=== PATIENT | female | born 1960 | race Caucasian/White ===

== ENCOUNTER 2019-01-06 10:00 | Outpatient (RCR) | payer MEDICAID, SELFPAY ==
[2018-12-09 09:11] VITALS: BP 125/85; PULSE 85; RESP 18; TEMP 36.7; BMI 20.4
--- NOTE | 2018-12-09 12:07 | HP.PCM_ITS ---
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 layer exposed Status: Chronic Current Visit: Yes Code(s): L97.412 - Non-pressure chronic ulcer of right heel and midfoot with fat layer exposed (2) PVD (peripheral vascular disease) Status: Acute Current Visit: Yes Code(s): I73.9 - Peripheral vascular disease, unspecified (3) Lower extremity edema Status: Acute Current Visit: Yes Code(s): R60.0 - Localized edema (4) Delayed wound healing Status: Acute Current Visit: Yes Code(s): T14.8XXD - Other injury of unspecified body region, subsequent encounter (5) Type 2 diabetes mellitus with diabetic polyneuropathy Status: Acute Current Visit: Yes Code(s): E11.42 - Type 2 diabetes mellitus with diabetic polyneuropathy History of Present Illness Date of Service: 12/09/18 Chief Complaint: Right heel ulcer History of Wound: This patient with a one-month history of right heel ulcer, uncontrolled diabetes, as well as multiple other comorbidities was consulted to the wound healing center for her ongoing right heel ulcer. Patient says that she noticed the area about a month ago and has very slowly been worsening. She denies noticing any drainage, surrounding redness, or increased warmth to the area. She says she has been keeping the area dressed the best she can. She does admit to walking on her heel and not completely keeping the area offloaded. She currently denies any feelings of nausea, vomiting, fever, chills. Past Medical History Past Medical History: Chronic Problems Chronic ulcer of right heel with fat layer exposed (Chronic) Smoking Status: Light Smoker (<10/day) Review of Systems Constitutional: Denies: Chills, Fever, Weight Change Cardiovascular: Denies: Chest Pain, Palpitations Respiratory: Denies: Cough, Shortness of Breath Gastrointestinal: Denies: Diarrhea, Nausea, Vomiting Genitourinary: Denies: Dysuria, Hematuria Skin: Reports: - - Right heel ulcer - Physical Exam Vital Signs Temp Pulse Resp BP 98.0 F 85 18 125/85 H 12/09/18 09:11 12/09/18 09:11 12/09/18 09:11 12/09/18 09:11 General: Alert, Oriented x3, Cooperative, No apparent distress Extremities: No cyanosis, No Calf Tenderness - Negative Gaurang and Jim signs bilateral, Diminished Peripheral Pulses, Edema - Bilateral lower extremity edema, - - Capillary refill time slightly over 5 seconds to distal digits of the right and left foot Skin: Ulcer/ Wound - Ulcer to right heel with depth not completely able to be established due to overlying stable eschar to the area. There is no bogginess or fluctuance surrounding the area. There is no surrounding or extending erythema, no increased warmth, no probing to bone, no tracking, no undermining. Wound Measurements and Assessment WC - Nurse 1 - General Ulcer Measurement Start: 12/09/18 09:01 Freq: Status: Active Protocol: Activity Type Activity Date Activity User E-Sign Co-Sign Detail Recorded Client Recorded Date Recorded By Document 12/09/18 09:11 DV [id number] 12/09/18 09:47 DV 12/09/18 09:11 Wound Center Nurse 1 [Ulcer Assessment] #1 RIGHT HEEL -Combined with other wound No -Current Size (cm) - Length 1.9 -Current Size (cm) - Width 1.2 -Current Size (cm) - Depth 0.2 -Total Square Cm 2.28 -Date of Last Picture (Recall this 12/09/18 field) -Photo Taken Yes -Epithelialization None Present -Tunneling No -Undermining/Tunneling No -Circular Undermining No -Classification - Thickness Full Thickness without Exposed Support Structure -Exudate Amt Medium -Exudate Type Serosanguineous -Wound Margin Indistinct, Non -Visible -Granulation Amt None Present (0 %) -Granulation Quality N/A -Slough/Fibrin Yes -Necrosis Amt Large (67-100%) -Necrotic Tissue Type Adherent Slough -Structure Exposed None/Limited to Skin Breakdown -Texture (Carmen-wound Skin Appearance) No Abnormality, Assessed -Moisture (Carmen-wound Skin Appearance Assessed, ) Weeping -Color (Carmen-wound Skin Appearance) Assessed, Erythema -Temperature (Carmen-wound Skin No Abnormality Appearance) (Pt Warm) -Tenderness on Palpation (Carmen-wound Yes Skin Appearance) -Ulcer Cleansing Rinsed/ Irrigated with Saline -Foul Odor after Cleansing No -Anesthetic Used 5% Lidocaine Gel [Edema Assessment] -Lower Limb Edema Present Yes -Right Calf (cm) 22.3 -Right Ankle (cm) 34.5 -Left Calf (cm) 37.0 -Left Ankle (cm) 23.5 WC - Nurse 2 - General Ulcer CM Notes Start: 12/09/18 09:01 Freq: Status: Active Protocol: Activity Type Activity Date Activity User E-Sign Co-Sign Detail Recorded Client Recorded Date Recorded By Document 12/09/18 10:11 AN [id number] 12/09/18 10:16 AN 12/09/18 10:11 Wound Center Nurse 2 [Procedure/Treatment] #1 RIGHT HEEL -Time 10:14 -Correct Patient Yes -Correct Side, Site, Position Yes -Correct Procedure Yes -Procedure Performed No -Wound/Ulcer Outcome Not Healed -Ulcer Cleansing Rinsed/ Irrigated with Saline -Foul Odor after Cleansing No -Bioengineered Tissue No -Offloading Yes -Type of Offloading Camwalker -Treatment Response Procedure Tolerated Well [See Physician Procedure note for Specifics] Pain Scale: 0-10 Numeric [Pain] -Is Patient Pain Free? Yes Musculoskeletal: No Tenderness to Palpation of Joints or Extremities Neurological: - - Epicritic sensation grossly absent to bilateral lower extremities consistent with patient's diabetic status Psych/Mental Status: Normal Affect, Appropriate Debridement Note Post-Debridement Measurements/Treatment - Nurse 2 - General Ulcer CM Notes Start: 12/09/18 09:01 Freq: Status: Active Protocol: Activity Type Activity Date Activity User E-Sign Co-Sign Detail Recorded Client Recorded Date Recorded By Document 12/09/18 10:11 AN [id number] 12/09/18 10:16 AN 12/09/18 10:11 Wound Center Nurse 2 #1 RIGHT HEEL -Time 10:14 -Correct Patient Yes -Correct Side, Site, Position Yes -Correct Procedure Yes -Procedure Performed No -Wound/Ulcer Outcome Not Healed -Ulcer Cleansing Rinsed/ Irrigated with Saline -Foul Odor after Cleansing No -Bioengineered Tissue No -Offloading Yes -Type of Offloading Camwalker -Treatment Response Procedure Tolerated Well Pain Scale: 0-10 Numeric Is Patient Pain Free? Yes No debridement was completed today Assessment/Plan Active Problems Chronic ulcer of right heel with fat layer exposed (Chronic) PVD (peripheral vascular disease) (Acute) Lower extremity edema (Acute) Delayed wound healing (Acute) Type 2 diabetes mellitus with diabetic polyneuropathy (Acute) Assessment: As noted above Plan: Initial patient examination evaluation was performed today. No debridement was performed today as we are unsure about patient's vascular status at this time. The ulcer site has been present to the patient's right heel for approximately 1 months at this time. The stable eschar was painted with Bet adine with an overlying Betadine gauze followed by dry sterile dressing and Tubigrip for compression. The patient was instructed to change her dressing in this manner on a daily basis. The patient is to keep all weight and pressure completely off of the heel at all times while either seated or laying down. While laying down she is to keep pillows under her calves to make sure that nothing but air is touching the heel. She is to keep any kind of pressure to the forefoot if she absolutely needs to be up to move from one place to another. She relates that she understands this and admits to not being compliant in this over the past month. No antibiotics were prescribed today due to there being no clinical signs of local infection being present. Patient relates she is already established with a vascular surgeon Dr. Almaguer. She is unsure of everything that is been done in her past, but does relate procedures have been performed to open up blood flow. I recommend at this time that the patient is reevaluated by her vascular surgeon as soon as possible to further evaluate if any intervention may be needed at this time. She is in agreement with this plan. Smoking cessation was discussed in detail. I also recommend a diet high in protein to help optimize patient's ulcer healing potential. The patient was educated on all signs and symptoms of local and systemic infection she was instructed to go to the emergency room immediately should she notice any of these. All other questions were answered to the patient's satisfaction. Patient will follow back up in clinic in 1 week to check on progress but was instructed to follow-up sooner if needed for any reason before then.
[2018-12-16 09:34] VITALS: RESP 16; TEMP 36.5; BMI 20.4
--- NOTE | 2018-12-16 10:07 | PCM.WC.PN ---
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 layer exposed Status: Chronic Current Visit: Yes Code(s): L97.412 - Non-pressure chronic ulcer of right heel and midfoot with fat layer exposed (2) PVD (peripheral vascular disease) Status: Acute Current Visit: Yes Code(s): I73.9 - Peripheral vascular disease, unspecified (3) Lower extremity edema Status: Acute Current Visit: Yes Code(s): R60.0 - Localized edema (4) Delayed wound healing Status: Acute Current Visit: Yes Code(s): T14.8XXD - Other injury of unspecified body region, subsequent encounter (5) Type 2 diabetes mellitus with diabetic polyneuropathy Status: Acute Current Visit: Yes Code(s): E11.42 - Type 2 diabetes mellitus with diabetic polyneuropathy Type of Wound Date of Service: 12/16/18 Chief Complaint: Right heel ulcer History of Wound: This patient with a one-month history of right heel ulcer, uncontrolled diabetes, as well as multiple other comorbidities was consulted to the wound healing center for her ongoing right heel ulcer. Patient says that she noticed the area about a month ago and has very slowly been worsening. She denies noticing any drainage, surrounding redness, or increased warmth to the area. She says she has been keeping the area dressed the best she can. She does admit to walking on her heel and not completely keeping the area offloaded. She currently denies any feelings of nausea, vomiting, fever, chills. Progress of Wound: Ulcer stable this week. Patient denies any feelings of nausea, vomiting, fever, chills. - Physical Exam Vital Signs Temp Pulse Resp BP 97.7 F L 85 16 125/85 H 12/16/18 09:34 12/09/18 09:11 12/16/18 09:34 12/09/18 09:11 General: Alert, Oriented x3, Cooperative, No apparent distress Extremities: No cyanosis, No Calf Tenderness - Negative Gaurang and Jim signs bilateral, Diminished Peripheral Pulses, Edema - Bilateral lower extremity edema, - - Capillary refill time slightly over 5 seconds to distal digits of the right and left foot Skin: Ulcer/ Wound - Ulcer to right heel with depth not completely able to be established due to overlying stable eschar to the area. There continues to be no bogginess or fluctuance surrounding the area. There is no surrounding or extending erythema, no increased warmth, no probing to bone, no tracking, no undermining. Wound Measurements and Assessment WC - Nurse 1 - General Ulcer Measurement Start: 12/09/18 09:01 Freq: Status: Active Protocol: Activity Type Activity Date Activity User E-Sign Co-Sign Detail Recorded Client Recorded Date Recorded By Document 12/16/18 09:34 [facility] [id number] 12/16/18 09:39 [facility] 12/16/18 09:34 Wound Center Nurse 1 [Ulcer Assessment] #1 RIGHT HEEL -Combined with other wound No -Current Size (cm) - Length 2.2 -Current Size (cm) - Width 1.5 -Current Size (cm) - Depth 0.2 -Total Square Cm 3.30 -Photo Taken No -Epithelialization None Present -Tunneling No -Undermining/Tunneling No -Circular Undermining No -Exudate Amt None Present -Wound Margin Distinct, Outline Attached -Granulation Amt None Present (0 %) -Slough/Fibrin Yes -Necrosis Amt Large (67-100%) -Necrotic Tissue Type Eschar -Texture (Carmen-wound Skin Appearance) Assessed, Scarring -Moisture (Carmen-wound Skin Appearance Assessed ) -Color (Carmen-wound Skin Appearance) Assessed, Erythema -Temperature (Carmen-wound Skin No Abnormality Appearance) (Pt Warm) -Tenderness on Palpation (Carmen-wound Yes Skin Appearance) -Ulcer Cleansing Rinsed/ Irrigated with Saline -Foul Odor after Cleansing No -Anesthetic Used 5% Lidocaine Gel KETTY - Nurse 2 - General Ulcer CM Notes Start: 12/09/18 09:01 Freq: Status: Active Protocol: Activity Type Activity Date Activity User E-Sign Co-Sign Detail Recorded Client Recorded Date Recorded By Document 12/16/18 09:57 AN [id number] 12/16/18 09:58 AN 12/16/18 09:57 Wound Center Nurse 2 [Procedure/Treatment] -Time 09:58 -Procedure Performed No [See Physician Procedure note for Specifics] Pain Scale: 0-10 Numeric [Pain] -Is Patient Pain Free? Yes Musculoskeletal: No Tenderness to Palpation of Joints or Extremities Neurological: - - Epicritic sensation grossly absent to bilateral lower extremities consistent with patient's diabetic status Psych/Mental Status: Normal Affect, Appropriate Debridement Note Post-Debridement Measurements/Treatment WC - Nurse 2 - General Ulcer CM Notes Start: 12/09/18 09:01 Freq: Status: Active Protocol: Activity Type Activity Date Activity User E-Sign Co-Sign Detail Recorded Client Recorded Date Recorded By Document 12/09/18 10:11 AN [id number] 12/09/18 10:16 AN Document 12/16/18 09:57 AN [id number] 12/16/18 09:58 AN 12/09/18 12/16/18 10:11 09:57 Wound Center Nurse 2 #1 RIGHT HEEL -Time 10:14 09:58 -Correct Patient Yes -Correct Side, Site, Position Yes -Correct Procedure Yes -Procedure Performed No No -Wound/Ulcer Outcome Not Healed -Ulcer Cleansing Rinsed/ Irrigated with Saline -Foul Odor after Cleansing No -Bioengineered Tissue No -Offloading Yes -Type of Offloading Camwalker -Treatment Response Procedure Tolerated Well Pain Scale: 0-10 Numeric Is Patient Pain Free? Yes Yes No debridement was completed today Assessment/Plan Active Problems Chronic ulcer of right heel with fat layer exposed (Chronic) PVD (peripheral vascular disease) (Acute) Lower extremity edema (Acute) Delayed wound healing (Acute) Type 2 diabetes mellitus with diabetic polyneuropathy (Acute) Assessment: As noted above Plan: Patient was carefully examined and evaluated again for her right heel ulcer. No debridement was performed today as she has not yet been evaluated by her vascular doctor. The stable eschar was painted with Betadine with an overlying Betadine gauze followed by dry sterile dressing and Tubigrip for compression. The patient was instructed to change her dressing in this manner on a daily basis. The patient is to keep all weight and pressure completely off of the heel at all times while either seated or laying down. While laying down she is to keep pillows under her calves to make sure that nothing but air is touching the heel. She is to keep any kind of pressure to the forefoot if she absolutely needs to be up to move from one place to another. No antibiotics were prescribed today due to there being no clinical signs of local infection being present. Patient relates she is already established with a vascular surgeon Dr. Almaguer. She is unsure of everything that is been done in her past, but does relate procedures have been performed to open up blood flow. I continue to recommend that the patient is reevaluated by her vascular surgeon as soon as possible to further evaluate if any intervention may be needed at this time. We will call the vascular specialist office today to check on status. Smoking cessation was discussed in detail. I also recommend a diet high in protein to help optimize patient's ulcer healing potential. The patient was educated on all signs and symptoms of local and systemic infection she was instructed to go to the emergency room immediately should she notice any of these. All other questions were answered to the patient's satisfaction. Patient will follow back up in clinic in 1 week to check on progress but was instructed to follow-up sooner if needed for any reason before then.
[2019-01-06 10:07] VITALS: BP 125/90; PULSE 92; RESP 18; TEMP 37; BMI 20.4
--- NOTE | 2019-01-06 11:18 | PN.PCM_ITS ---
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 layer exposed Status: Chronic Current Visit: Yes Code(s): L97.412 - Non-pressure chronic ulcer of right heel and midfoot with fat layer exposed (2) PVD (peripheral vascular disease) Status: Acute Current Visit: Yes Code(s): I73.9 - Peripheral vascular disease, unspecified (3) Lower extremity edema Status: Acute Current Visit: Yes Code(s): R60.0 - Localized edema (4) Delayed wound healing Status: Acute Current Visit: Yes Code(s): T14.8XXD - Other injury of unspecified body region, subsequent encounter (5) Type 2 diabetes mellitus with diabetic polyneuropathy Status: Acute Current Visit: Yes Code(s): E11.42 - Type 2 diabetes mellitus with diabetic polyneuropathy Type of Wound Date of Service: 01/06/19 Chief Complaint: Right heel ulcer History of Wound: This patient with a one-month history of right heel ulcer, uncontrolled diabetes, as well as multiple other comorbidities was consulted to the wound healing center for her ongoing right heel ulcer. Patient says that she noticed the area about a month ago and has very slowly been worsening. She denies noticing any drainage, surrounding redness, or increased warmth to the area. She says she has been keeping the area dressed the best she can. She does admit to walking on her heel and not completely keeping the area offloaded. She currently denies any feelings of nausea, vomiting, fever, chills. Progress of Wound: Ulcer stable again this week. Patient states that she had a vascular procedure performed last Thursday by Dr. Almaguer. Patient denies any feelings of nausea, vomiting, fever, chills. - Physical Exam Vital Signs Temp Pulse Resp BP 98.6 F 92 18 125/90 H 01/06/19 10:07 01/06/19 10:07 01/06/19 10:07 01/06/19 10:07 General: Alert, Oriented x3, Cooperative, No apparent distress Extremities: No cyanosis, No Calf Tenderness - Negative Gaurang and Jim signs bilateral, Diminished Peripheral Pulses, Edema Skin: Ulcer/ Wound - Ulcer to right heel with depth not completely able to be established due to overlying stable eschar to the area. There continues to be no bogginess or fluctuance surrounding the area. There is no surrounding or extending erythema, no increased warmth, no probing to bone, no tracking, no undermining. Wound Measurements and Assessment WC - Nurse 1 - General Ulcer Measurement Start: 12/09/18 09:01 Freq: Status: Active Protocol: Activity Type Activity Date Activity User E-Sign Co-Sign Detail Recorded Client Recorded Date Recorded By Document 01/06/19 10:07 DV [id number] 01/06/19 10:16 DV 01/06/19 10:07 Wound Center Nurse 1 [Ulcer Assessment] #1 RIGHT HEEL -Combined with other wound No -Current Size (cm) - Length 2.2 -Current Size (cm) - Width 1.5 -Current Size (cm) - Depth 0.1 -Total Square Cm 3.30 -Photo Taken No -Epithelialization None Present -Tunneling No -Undermining/Tunneling No -Circular Undermining No -Exudate Amt None Present -Wound Margin Indistinct, Non -Visible -Granulation Amt None Present (0 %) -Granulation Quality N/A -Slough/Fibrin Yes -Necrosis Amt Large (67-100%) -Necrotic Tissue Type Eschar -Structure Exposed None/Limited to Skin Breakdown -Texture (Carmen-wound Skin Appearance) Assessed -Moisture (Carmen-wound Skin Appearance Assessed ) -Color (Carmen-wound Skin Appearance) Assessed -Temperature (Carmen-wound Skin No Abnormality Appearance) (Pt Warm) -Tenderness on Palpation (Carmen-wound Yes Skin Appearance) -Foul Odor after Cleansing No -Anesthetic Used 5% Lidocaine Gel WC - Nurse 2 - General Ulcer CM Notes Start: 12/09/18 09:01 Freq: Status: Active Protocol: Activity Type Activity Date Activity User E-Sign Co-Sign Detail Recorded Client Recorded Date Recorded By Document 01/06/19 10:19 DV [id number] 01/06/19 10:25 DV 01/06/19 10:19 Pain Scale: 0-10 Numeric [Pain] -Is Patient Pain Free? Yes Musculoskeletal: No Tenderness to Palpation of Joints or Extremities Neurological: - - Epicritic sensation grossly absent to bilateral lower extre mities consistent with patient's diabetic status Psych/Mental Status: Normal Affect, Appropriate Debridement Note Post-Debridement Measurements/Treatment WC - Nurse 2 - General Ulcer CM Notes Start: 12/09/18 09:01 Freq: Status: Active Protocol: Activity Type Activity Date Activity User E-Sign Co-Sign Detail Recorded Client Recorded Date Recorded By Document 12/09/18 10:11 AN [id number] 12/09/18 10:16 AN Document 12/16/18 09:57 AN [id number] 12/16/18 09:58 AN Document 01/06/19 10:19 DV [id number] 01/06/19 10:25 DV 12/09/18 12/16/18 01/06/19 10:11 09:57 10:19 Wound Center Nurse 2 #1 RIGHT HEEL -Time 10:14 09:58 -Correct Patient Yes -Correct Side, Site, Position Yes -Correct Procedure Yes -Procedure Performed No No -Wound/Ulcer Outcome Not Healed -Ulcer Cleansing Rinsed/ Irrigated with Saline -Foul Odor after Cleansing No -Bioengineered Tissue No -Offloading Yes -Type of Offloading Camwalker -Treatment Response Procedure Tolerated Well Pain Scale: 0-10 Numeric Is Patient Pain Free? Yes Yes Yes No debridement was completed today Assessment/Plan Active Problems Chronic ulcer of right heel with fat layer exposed (Chronic) PVD (peripheral vascular disease) (Acute) Lower extremity edema (Acute) Delayed wound healing (Acute) Type 2 diabetes mellitus with diabetic polyneuropathy (Acute) Assessment: As noted above Plan: Patient was carefully examined and evaluated again for her right heel ulcer. No debridement was performed today. The patient states that she had a vascular procedure performed last Thursday by Dr. Almaguer. We faxed his office in order to get the operative report and any office notes that go along with this, in order to see exactly what was done. The stable eschar was painted with Betadine with an overlying Betadine gauze followed by dry sterile dressing and Tubigrip for compression. The patient was instructed to change her dressing in this manner on a daily basis. The patient is to keep all weight and pressure completely off of the heel at all times while either seated or laying down. While laying down she is to keep pillows under her calves to make sure that nothing but air is touching the heel. She is to keep any kind of pressure to the forefoot if she absolutely needs to be up to move from one place to another. No antibiotics were prescribed today due to there being no clinical signs of local infection being present. Smoking cessation was discussed in detail. I also recommend a diet high in protein to help optimize patient's ulcer healing potential. The patient was educated on all signs and symptoms of local and systemic infection she was instructed to go to the emergency room immediately should she notice any of these. All other questions were answered to the patient's satisfaction. Patient will follow back up in clinic in 1 week to check on progress but was instructed to follow-up sooner if needed for any reason before then.
== END 2019-01-06 23:59 ==
LOC: WC 10:00
PROVIDERS: Visit Provider Podiatrist
DX: E11.621 Type 2 diabetes mellitus with foot ulcer (principal); R60.0 Localized edema; E11.42 Type 2 diabetes mellitus with diabetic polyneuropathy; E11.65 Type 2 diabetes mellitus with hyperglycemia; L97.412 Non-pressure chronic ulcer of right heel and midfoot with fat layer exposed; E11.51 Type 2 diabetes mellitus with diabetic peripheral angiopathy without gangrene
CPT/HCPCS: 99202; 99212; G0463

== ENCOUNTER 2019-02-02 15:30 | Outpatient (RCR) | payer MEDICAID, SELFPAY ==
[2019-01-07 01:20] VITALS: BP 125/90; PULSE 92; RESP 18; TEMP 37
[2019-01-20 08:58] VITALS: BP 106/72; PULSE 88; RESP 18; TEMP 36.2; BMI 20.4
--- NOTE | 2019-01-20 10:30 | PN.PCM_ITS ---
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 layer exposed Status: Chronic Current Visit: No Code(s): L97.412 - Non-pressure chronic ulcer of right heel and midfoot with fat layer exposed (2) PVD (peripheral vascular disease) Status: Acute Current Visit: No Code(s): I73.9 - Peripheral vascular disease, unspecified (3) Lower extremity edema Status: Acute Current Visit: No Code(s): R60.0 - Localized edema (4) Delayed wound healing Status: Acute Current Visit: No Code(s): T14.8XXD - Other injury of unspecified body region, subsequent encounter (5) Type 2 diabetes mellitus with diabetic polyneuropathy Status: Acute Current Visit: No Code(s): E11.42 - Type 2 diabetes mellitus with diabetic polyneuropathy Type of Wound Date of Service: 01/20/19 Chief Complaint: Right heel ulcer History of Wound: This patient with a one-month history of right heel ulcer, uncontrolled diabetes, as well as multiple other comorbidities was consulted to the wound healing center for her ongoing right heel ulcer. Patient says that she noticed the area about a month ago and has very slowly been worsening. She denies noticing any drainage, surrounding redness, or increased warmth to the area. She says she has been keeping the area dressed the best she can. She does admit to walking on her heel and not completely keeping the area offloaded. She currently denies any feelings of nausea, vomiting, fever, chills. Progress of Wound: Ulcer stable. Patient denies any feelings of nausea, vomiting, fever, chills. - Physical Exam Vital Signs Temp Pulse Resp BP 97.1 F L 88 18 106/72 01/20/19 08:58 01/20/19 08:58 01/20/19 08:58 01/20/19 08:58 General: Alert, Oriented x3, Cooperative, No apparent distress Extremities: No cyanosis, No Calf Tenderness - Negative Gaurang and Jim signs bilateral, Diminished Peripheral Pulses, Edema, - - Capillary refill is slightly over 3 seconds to distal digits of the right foot Skin: Ulcer/ Wound - Ulcer to right heel with fat layer exposed. Measurements noted below. There is no bogginess or fluctuance appreciated. The base is a mi xture of devitalized subcutaneous tissue, adherent slough, fibrin, biofilm, granular tissue, and surrounding hyperkeratotic tissue. There is no probing to bone, no tracking, and no undermining noted. There is no surrounding or extending cellulitis, no purulence, no malodor, no increase in warmth or any other signs of local infection currently appreciated. Wound Measurements and Assessment WC - Nurse 1 - General Ulcer Measurement Start: 01/20/19 08:58 Freq: Status: Active Protocol: Activity Type Activity Date Activity User E-Sign Co-Sign Detail Recorded Client Recorded Date Recorded By Document 01/20/19 08:58 CHRISTOPHE [id number] 01/20/19 09:02 CHRISTOPHE 01/20/19 08:58 Wound Center Nurse 1 [Ulcer Assessment] #1 RIGHT HEEL -Current Size (cm) - Length 1.6 -Current Size (cm) - Width 2 -Current Size (cm) - Depth 0.1 -Total Square Cm 3.2 -Photo Taken No -Exudate Amt None Present -Wound Margin Thickened -Granulation Amt None Present (0 %) -Necrotic Tissue Type Eschar -Structure Exposed N/A -Texture (Carmen-wound Skin Appearance) Scarring -Moisture (Carmen-wound Skin Appearance Dry/Scaly ) -Color (Carmen-wound Skin Appearance) No Abnormality -Temperature (Carmen-wound Skin No Abnormality Appearance) (Pt Warm) -Tenderness on Palpation (Carmen-wound No Skin Appearance) -Ulcer Cleansing Rinsed/ Irrigated with Saline -Foul Odor after Cleansing No -Anesthetic Used 5% Lidocaine Gel WC - Nurse 2 - General Ulcer CM Notes Start: 01/20/19 08:58 Freq: Status: Active Protocol: Activity Type Activity Date Activity User E-Sign Co-Sign Detail Recorded Client Recorded Date Recorded By Document 01/20/19 09:21 [id number] 01/20/19 09:36 01/20/19 09:21 Wound Center Nurse 2 [Procedure/Treatment] -Time 09:21 -Correct Patient Yes -Correct Side, Site, Position Yes -Correct Procedure Yes -Procedure Performed Yes -Type of Procedure Debridement -Clinical Debridement Subcutaneous -Post Debridement Size (cm) - Length 2.5 -Post Debridement Size (cm) - Width 2 -Post Debridement Size (cm) - Depth 0.4 -Total Square Cm 5.0 -Offloading Yes -Type of Offloading Camwalker -Treatment Response Procedure Tolerated Well [See Physician Procedure note for Specifics] Musculoskeletal: No Tenderness to Palpation of Joints or Extremities Neurological: - - Epicritic sensation grossly absent to bilateral lower extremities consistent with patient's diabetic status Psych/Mental Status: Normal Affect, Appropriate Debridement Note Post-Debridement Measurements/Treatment WC - Nurse 2 - General Ulcer CM Notes Start: 01/20/19 08:58 Freq: Status: Active Protocol: Activity Type Activity Date Activity User E-Sign Co-Sign Detail Recorded Client Recorded Date Recorded By Document 01/20/19 09:21 [id number] 01/20/19 09:36 01/20/19 09:21 Wound Center Nurse 2 #1 RIGHT HEEL -Time 09:21 -Correct Patient Yes -Correct Side, Site, Position Yes -Correct Procedure Yes -Procedure Performed Yes -Type of Procedure Debridement -Clinical Debridement Subcutaneous -Post Debridement Size (cm) - Length 2.5 -Post Debridement Size (cm) - Width 2 -Post Debridement Size (cm) - Depth 0.4 -Total Square Cm 5.0 -Offloading Yes -Type of Offloading Camwalker -Treatment Response Procedure Tolerated Well Wound debrided: Right heel Laterality: Right Type of Debridement: Excisional debridement Anesthesia Used: 5% Lidocaine Gel Depth: in the subcutaneous layer Percentage of wound debrided: 100 Instrument Used: #15 blade, - - Tissue nipper Tissue Removed: Devitalized subcutaneous tissue, adherent slough, fibrin, biofilm Severity: Fat Layer Exposed Amount of bleeding with debridement: Mild Bleeding Controlled with: Pressure Patient tolerated procedure well Assessment/Plan Assessment: As noted above Plan: Patient was carefully examined and evaluated again for her right heel ulcer. A subcutaneous debridement was performed as noted in the clinical panel. The patient had a vascular procedure performed by Dr. Almaguer, who in his procedure note stated that he was able to reestablish flow through the posterior tibial artery, but he was unable to improve any flow through the anterior tibial artery. The full report from the patient's surgical procedure can be found in the patient's chart. Following debridement, the ulcer site was then dressed with Aquacel Ag to the base followed by a dry sterile dressing. The patient was instructed to change her dressing in this manner on a daily basis. The patient is to keep all weight and pressure completely off of the heel at all times while either seated or laying down. While laying down she is to keep pillows under her calves to make sure that nothing but air is touching the heel. A prescription for a knee roller was dispensed to the patient today in order to keep all pressure completely off of the right foot well she is trying to heal her ulcer site. She is to keep any kind of pressure to the forefoot if she absolutely needs to be up to move from one place to another. Smoking cessation was discussed in detail. I also recommend a diet high in protein to help optimize patient's ulcer healing potential. The patient was educated on all signs and symptoms of local and systemic infection she was instructed to go to the emergency room immediately should she notice any of these. All other ques tions were answered to the patient's satisfaction. Patient will follow back up in clinic in 1 week to check on progress but was instructed to follow-up sooner if needed for any reason before then.
[2019-01-27 08:17] VITALS: BP 124/78; PULSE 95; RESP 18; TEMP 36.4; BMI 20.4
--- NOTE | 2019-01-27 08:49 | PN.PCM_ITS ---
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 layer exposed Status: Chronic Current Visit: No Code(s): L97.412 - Non-pressure chronic ulcer of right heel and midfoot with fat layer exposed (2) PVD (peripheral vascular disease) Status: Acute Current Visit: No Code(s): I73.9 - Peripheral vascular disease, unspecified (3) Lower extremity edema Status: Acute Current Visit: No Code(s): R60.0 - Localized edema (4) Delayed wound healing Status: Acute Current Visit: No Code(s): T14.8XXD - Other injury of unspecified body region, subsequent encounter (5) Type 2 diabetes mellitus with diabetic polyneuropathy Status: Acute Current Visit: No Code(s): E11.42 - Type 2 diabetes mellitus with diabetic polyneuropathy Type of Wound Date of Service: 01/27/19 Chief Complaint: Right heel ulcer History of Wound: This patient with a one-month history of right heel ulcer, uncontrolled diabetes, as well as multiple other comorbidities was consulted to the wound healing center for her ongoing right heel ulcer. Patient says that she noticed the area about a month ago and has very slowly been worsening. She denies noticing any drainage, surrounding redness, or increased warmth to the area. She says she has been keeping the area dressed the best she can. She does admit to walking on her heel and not completely keeping the area offloaded. She currently denies any feelings of nausea, vomiting, fever, chills. Progress of Wound: Ulcer shows slight improvement. Patient denies any feelings of nausea, vomiting, fever, chills. - Physical Exam Vital Signs Temp Pulse Resp BP 97.5 F L 95 18 124/78 H 01/27/19 08:17 01/27/19 08:17 01/27/19 08:17 01/27/19 08:17 General: Alert, Oriented x3, Cooperative, No apparent distress Extremities: No cyanosis, No Calf Tenderness - Negative Gaurang and Jim signs bilateral, Diminished Peripheral Pulses, - - Capillary refill is slightly over 3 seconds to distal digits of the right foot Skin: Ulcer/ Wound - Ulcer to right heel with fat layer exposed. Measurements noted below. There is no bogginess or fluctuance appreciated again today. The base is a mixture of devitalized subcutaneous tissue, majority adherent slough, fibrin, biofilm, granular tissue, and surrounding hyperkeratotic tissue. There is no probing to bone, no tracking, and no undermining noted. There is no surrounding or extending cellulitis, no purulence, no malodor, no increase in warmth or any other signs of local infection currently appreciated. Wound Measurements and Assessment WC - Nurse 1 - General Ulcer Measurement Start: 01/20/19 08:58 Freq: Status: Active Protocol: Activity Type Activity Date Activity User E-Sign Co-Sign Detail Recorded Client Recorded Date Recorded By Document 01/27/19 08:17 BRAD [id number] 01/27/19 08:25 BRAD 01/27/19 08:17 Wound Center Nurse 1 [Ulcer Assessment] 2-right 5th metatarsal cluster -Combined with other wound No -Current Size (cm) - Length 1.6 -Current Size (cm) - Width 2.0 -Current Size (cm) - Depth 0.1 -Total Square Cm 3.20 -Photo Taken Yes -Epithelialization None Present -Tunneling No -Undermining/Tunneling No -Circular Undermining No -Exudate Amt None Present -Wound Margin Flat & Intact -Granulation Amt None Present (0 %) -Slough/Fibrin Yes -Necrosis Amt Large (67-100%) -Necrotic Tissue Type Eschar -Structure Exposed N/A -Texture (Carmen-wound Skin Appearance) Assessed -Moisture (Carmen-wound Skin Appearance Assessed,Dry/ ) Scaly -Color (Carmen-wound Skin Appearance) Assessed -Temperature (Carmen-wound Skin No Abnormality Appearance) (Pt Warm) -Tenderness on Palpation (Carmen-wound No Skin Appearance) -Ulcer Cleansing Rinsed/ Irrigated with Saline -Foul Odor after Cleansing No -Anesthetic Used 4% Lidocaine Solution #1 RIGHT HEEL -Combined with other wound No -Current Size (cm) - Length 2.3 -Current Size (cm) - Width 1.5 -Current Size (cm) - Depth 0.3 -Total Square Cm 3.45 -Photo Taken No -Epithelialization Small 1-33% -Tunneling No -Undermining/Tunneling No -Circular Undermining No -Exudate Amt Small -Exudate Type Serosanguineous -Wound Margin Flat & Intact -Granulation Amt None Present (0 %) -Slough/Fibrin Yes -Necrosis Amt Large (67-100%) -Necrotic Tissue Type Adherent Slough -Structure Exposed N/A -Texture (Carmen-wound Skin Appearance) Assessed -Moisture (Carmen-wound Skin Appearance Assessed,Dry/ ) Scaly -Color (Carmen-wound Skin Appearance) Assessed -Temperature (Carmen-wound Skin No Abnormality Appearance) (Pt Warm) -Tenderness on Palpation (Carmen-wound No Skin Appearance) -Ulcer Cleansing Rinsed/ Irrigated with Saline -Foul Odor after Cleansing No -Anesthetic Used 4% Lidocaine Solution [Edema Assessment] -Lower Limb Edema Present Yes -Right Calf (cm) 35.6 -Right Ankle (cm) 22.2 -Left Calf (cm) 38.6 -Left Ankle (cm) 23.0 WC - Nurse 2 - General Ulcer CM Notes Start: 01/20/19 08:58 Freq: Status: Active Protocol: Activity Type Activity Date Activity User E-Sign Co-Sign Detail Recorded Client Recorded Date Recorded By Document 01/27/19 08:38 DV [id number] 01/27/19 08:45 DV 01/27/19 08:38 Wound Center Nurse 2 [Procedure/Treatment] 2-right 5th metatarsal cluster -Time 08:38 -Correct Patient Yes -Correct Side, Site, Position Yes -Correct Procedure No -Procedure Performed No #1 RIGHT HEEL -Time 08:38 -Correct Patient Yes -Correct Side, Site, Position Yes -Correct Procedure Yes -Procedure Performed Yes -Type of Procedure Debridement -Clinical Debridement Subcutaneous -Post Debridement Size (cm) - Length 2.1 -Post Debridement Size (cm) - Width 1.5 -Post Debridement Size (cm) - Depth 0.3 -Total Square Cm 3.15 -Wound/Ulcer Outcome Not Healed -Ulcer Cleansing Rinsed/ Irrigated with Saline -Foul Odor after Cleansing No -Bioengineered Tissue No -Bleeding Controlled with Pressure -Offloading Yes -Type of Offloading Knee Walker -Treatment Response Procedure Tolerated Well [See Physician Procedure note for Specifics] Pain Scale: 0-10 Numeric [Pain] -Is Patient Pain Free? Yes Musculoskeletal: Tenderness - Some minor tenderness with manipulation of ulcer site Neurological: - - Altered epicritic sensation noted to bilateral lower extremities consistent with patient's diabetic status Psych/Mental Status: Normal Affect, Appropriate Debridement Note Post-Debridement Measurements/Treatment WC - Nurse 2 - General Ulcer CM Notes Start: 01/20/19 08:58 Freq: Status: Active Protocol: Activity Type Activity Date Activity User E-Sign Co-Sign Detail Recorded Client Recorded Date Recorded By Document 01/20/19 09:21 [id number] 01/20/19 09:36 Document 01/27/19 08:38 DV [id number] 01/27/19 08:45 DV 01/20/19 01/27/19 09:21 08:38 Wound Center Nurse 2 2-right 5th metatarsal cluster -Time 08:38 -Correct Patient Yes -Correct Side, Site, Position Yes -Correct Procedure No -Procedure Performed No #1 RIGHT HEEL -Time 09:21 08:38 -Correct Patient Yes Yes -Correct Side, Site, Position Yes Yes -Correct Procedure Yes Yes -Procedure Performed Yes Yes -Type of Procedure Debridement Debridement -Clinical Debridement Subcutaneous Subcutaneous -Post Debridement Size (cm) - Length 2.5 2.1 -Post Debridement Size (cm) - Width 2 1.5 -Post Debridement Size (cm) - Depth 0.4 0.3 -Total Square Cm 5.0 3.15 -Wound/Ulcer Outcome Not Healed -Ulcer Cleansing Rinsed/ Irrigated with Saline -Foul Odor after Cleansing No -Bioengineered Tissue No -Bleeding Controlled with Pressure -Offloading Yes Yes -Type of Offloading Camwalker Knee Walker -Treatment Response Procedure Procedure Tolerated Well Tolerated Well Pain Scale: 0-10 Numeric Is Patient Pain Free? Yes Wound debrided: Right heel Laterality: Right Type of Debridement: Excisional debridement Anesthesia Used: 5% Lidocaine Gel Depth: in the subcutaneous layer Percentage of wound debrided: 100 Instrument Used: #15 blade Tissue Removed: Devitalized subcutaneous tissue, adherent slough, fibrin, biof ilm Severity: Fat Layer Exposed Amount of bleeding with debridement: Mild Bleeding Controlled with: Pressure Patient tolerated procedure well Assessment/Plan Assessment: As noted above Plan: Patient was carefully examined and evaluated again for her right heel ulcer. A subcutaneous debridement was performed as noted in the clinical panel. Per my last note, the patient had a vascular procedure performed by Dr. Almaguer, who in his procedure note stated that he was able to reestablish flow through the posterior tibial artery, but he was unable to improve any flow through the anterior tibial artery. The full report from the patient's surgical procedure can be found in the patient's chart. Following debridement today, the ulcer site was then dressed with Aquacel Ag to the base followed by a dry sterile dressing. We will be switching the patient's daily dressing changes to the heel to Santyl to the base followed by a dry dressing. Prescription for Santyl given to the patient. The patient was instructed to change her dressing in this manner on a daily basis. The patient is to keep all weight and pressure completely off of the heel at all times while either seated or laying down. While laying down she is to keep pillows under her calves to make sure that nothing but air is touching the heel. Patient states that she picks up her knee roller today. She is to keep any kind of pressure to the forefoot if she absolutely needs to be up to move from one place to another. I also recommend a diet high in protein to help optimize patient's ulcer healing potential. The patient was educated on all signs and symptoms of local and systemic infection she was instructed to go to the emergency room immediately should she notice any of these. All other questions were answered to the patient's satisfaction. Patient will follow back up in clinic in 1 week to check on progress but was instructed to follow-up sooner if needed for any reason before then.
[2019-02-02 15:40] VITALS: BP 113/70; PULSE 90; RESP 14; TEMP 37.2; BMI 20.4
--- NOTE | 2019-02-07 13:28 | PCM.WC.PN ---
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 layer exposed Status: Chronic Code(s): L97.412 - Non-pressure chronic ulcer of right heel and midfoot with fat layer exposed (2) Delayed wound healing Status: Acute Code(s): T14.8XXD - Other injury of unspecified body region, subsequent encounter (3) Lower extremity edema Status: Acute Code(s): R60.0 - Localized edema (4) PVD (peripheral vascular disease) Status: Acute Code(s): I73.9 - Peripheral vascular disease, unspecified (5) Type 2 diabetes mellitus with diabetic polyneuropathy Status: Acute Code(s): E11.42 - Type 2 diabetes mellitus with diabetic polyneuropathy Type of Wound Date of Service: 02/02/19 Chief Complaint: Right heel ulcer History of Wound: This patient with a one-month history of right heel ulcer, uncontrolled diabetes, as well as multiple other comorbidities was consulted to the wound healing center for her ongoing right heel ulcer. Patient says that she noticed the area about a month ago and has very slowly been worsening. She denies noticing any drainage, surrounding redness, or increased warmth to the area. She says she has been keeping the area dressed the best she can. She does admit to walking on her heel and not completely keeping the area offloaded. She currently denies any feelings of nausea, vomiting, fever, chills. Progress of Wound: Courtesy visit for Dr. Barber, ulcer to heel is stable, patient denies any feelings of nausea, vomiting, fever, chills. - Physical Exam Vital Signs Temp Pulse Resp BP 98.9 F 90 14 113/70 02/02/19 15:40 02/02/19 15:40 02/02/19 15:40 02/02/19 15:40 General: Alert, Oriented x3, Cooperative, No apparent distress HEENT: Atraumatic Oral: Moist Mucosa Lungs: Clear to auscultation Cardiovascular: Regular rate Extremities: No clubbing, No cyanosis, No edema Skin: Ulcer/ Wound - see nursing documentation, slough and devitalized tissue present no signs of infection, callus to right distal foot Neurological: Neuro grossly intact Psych/Mental Status: Normal Affect, Appropriate, Alert and oriented to time, place, person, mood and affect Debridement Note Post-Debridement Measurements/Treatment WC - Nurse 2 - General Ulcer CM Notes Start: 01/20/19 08:58 Freq: Status: Active Protocol: Activity Type Activity Date Activity User E-Sign Co-Sign Detail Recorded Client Recorded Date Recorded By Document 01/20/19 09:21 [id number] 01/20/19 09:36 Document 01/27/19 08:38 DV [id number] 01/27/19 08:45 DV Document 02/02/19 16:06 BRAD [id number] 02/02/19 16:08 BRAD 01/20/19 01/27/19 02/02/19 09:21 08:38 16:06 Wound Center Nurse 2 2-right 5th metatarsal cluster -Time 08:38 -Correct Patient Yes No -Correct Side, Site, Position Yes No -Correct Procedure No No -Procedure Performed No No -Wound/Ulcer Outcome Not Healed #1 RIGHT HEEL -Time 09:21 08:38 16:07 -Correct Patient Yes Yes Yes -Correct Side, Site, Position Yes Yes Yes -Correct Procedure Yes Yes Yes -Procedure Performed Yes Yes Yes -Type of Procedure Debridement Debridement Debridement -Clinical Debridement Subcutaneous Subcutaneous Subcutaneous -Post Debridement Size (cm) - Length 2.5 2.1 2.6 -Post Debridement Size (cm) - Width 2 1.5 1.6 -Post Debridement Size (cm) - Depth 0.4 0.3 0.6 -Total Square Cm 5.0 3.15 4.16 -Wound/Ulcer Outcome Not Healed Not Healed -Ulcer Cleansing Rinsed/ Rinsed/ Irrigated with Irrigated with Saline Saline -Foul Odor after Cleansing No No -Bioengineered Tissue No No -Bleeding Controlled with Pressure Pressure -Offloading Yes Yes No -Type of Offloading Camwalker Knee Walker -Treatment Response Procedure Procedure Procedure Tolerated Well Tolerated Well Tolerated Well Pain Scale: 0-10 Numeric Is Patient Pain Free? Yes Yes Wound debrided: right heel DFU Laterality: Right Type of Debridement: Excisional debridement Anesthesia Used: 5% Lidocaine Gel Depth: in the subcutaneous layer Percentage of wound debrided: 100 Instrument Used: 7mm curette Tissue Removed: slough and devitalized tissue Severity: Fat Layer Exposed Amount of bleeding with debridement: Mild Bleeding Controlled with: Pressure Patient tolerated procedure well Assessment/Plan Assessment: As noted above Plan: Courtesy visit Dr Barber-Patient was carefully examined and evaluated again for her right heel ulcer. A subcutaneous debridement was performed as noted in the clinical panel. Per last note, the patient had a vascular procedure performed by Dr. Almaguer, who in his procedure note stated that he was able to reestablish flow through the posterior tibial artery, but he was unable to improve any flow through the anterior tibial artery. The full report from the patient's surgical procedure can be found in the patient's chart. Following debridement today, the ulcer site was then dressed with santyl to the base followed by a dry sterile dressing. The patient's daily dressing changes to the heel to Santyl to the base followed by a dry dressing. Prescription for Santyl given to the patient prior. The patient was instructed to change her dressing in this manner on a daily basis. She may continue utilizing daily iodine to the callused necrotic areas on the right distal foot. The patient is to keep all weight and pressure completely off of the heel at all times while either seated or laying down. While laying down she is to keep pillows under her calves to make sure that nothing but air is touching the heel. Patient states that she picks up her knee roller today. She is to keep any kind of pressure to the forefoot if she absolutely needs to be up to move from one place to another. I also recommend a diet high in protein to help optimize patient's ulcer healing potential. The patient was educated on all signs and symptoms of local and systemic infection she was instructed to go to the emergency room immediately should she notice any of these. All other questions were answered to the patient's satisfaction. Patient will follow back up in clinic in 1 week to check on progress but was instructed to follow-up sooner if needed for any reason before then. Code Visit [id number]: [id number] Tavia subq tissue 20 sq cm/<
== END 2019-02-05 23:59 ==
LOC: WC 15:30
PROVIDERS: Visit Provider Podiatrist
DX: E11.621 Type 2 diabetes mellitus with foot ulcer (principal); E11.42 Type 2 diabetes mellitus with diabetic polyneuropathy; E11.65 Type 2 diabetes mellitus with hyperglycemia; E11.51 Type 2 diabetes mellitus with diabetic peripheral angiopathy without gangrene; L97.412 Non-pressure chronic ulcer of right heel and midfoot with fat layer exposed; R60.0 Localized edema
CPT/HCPCS: 11042

== ENCOUNTER 2019-02-24 10:15 | Outpatient (RCR) | payer MEDICAID, SELFPAY ==
[2019-02-06 00:59] VITALS: BP 113/70; PULSE 90; RESP 14; TEMP 37.2
[2019-02-10 10:31] VITALS: BP 114/72; PULSE 91; RESP 18; TEMP 36.6; BMI 20.4
--- NOTE | 2019-02-10 13:07 | PN.PCM_ITS ---
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 layer exposed Status: Chronic Current Visit: No Code(s): L97.412 - Non-pressure chronic ulcer of right heel and midfoot with fat layer exposed (2) Type 2 diabetes mellitus with diabetic polyneuropathy Status: Chronic Current Visit: No Code(s): E11.42 - Type 2 diabetes mellitus with diabetic polyneuropathy (3) Delayed wound healing Status: Chronic Current Visit: No Code(s): T14.8XXD - Other injury of unspecified body region, subsequent encounter (4) Lower extremity edema Status: Chronic Current Visit: No Code(s): R60.0 - Localized edema (5) PVD (peripheral vascular disease) Status: Chronic Current Visit: No Code(s): I73.9 - Peripheral vascular disease, unspecified Type of Wound Date of Service: 02/11/19 Chief Complaint: Right heel ulcer History of Wound: [facility] for a courtesy visit for Dr. Barber. This patient with history of right heel ulcer, uncontrolled diabetes, as well as multiple other comorbidities was consulted to the wound healing center for her ongoing right heel ulcer. Patient says that she noticed the area about a month prior to coming to [facility] and had very slowly been worsening. She denies noticing any drainage, surrounding redness, or increased warmth to the area. She had been keeping the area dressed the best she can. She does admit to walking on her heel and not completely keeping the a asher offloaded. She currently denies any feelings of nausea, vomiting, fever, chills. Progress of Wound: Ulcer shows slight improvement. Patient denies any feelings of nausea, vomiting, fever, chills. - Physical Exam Vital Signs Temp Pulse Resp BP 97.8 F 91 18 114/72 02/10/19 10:31 02/10/19 10:31 02/10/19 10:31 02/10/19 10:31 General: Alert, Oriented x3, Cooperative, No apparent distress HEENT: Atraumatic, EOMI, Normocephalic Neck: Supple, No JVD Lungs: Normal air movement Extremities: No clubbing, No cyanosis, No edema, Capillary Refill Less than 3 Seconds, Peripheral Pulses Normal Wound Measurements and Assessment WC - Nurse 1 - General Ulcer Measurement Start: 02/10/19 10:31 Freq: Status: Active Protocol: Activity Type Activity Date Activity User E-Sign Co-Sign Detail Recorded Client Recorded Date Recorded By Document 02/10/19 10:31 RB [id number] 02/10/19 10:45 RB 02/10/19 10:31 Wound Center Nurse 1 [Ulcer Assessment] 2-right 5th metatarsal cluster -Combined with other wound No -Current Size (cm) - Length 2.6 -Current Size (cm) - Width 2.4 -Current Size (cm) - Depth 0.1 -Total Square Cm 6.24 -Tunneling No -Undermining/Tunneling No -Circular Undermining No -Exudate Amt None Present -Wound Margin Flat & Intact -Granulation Amt None Present (0 %) -Slough/Fibrin Yes -Necrosis Amt Large (67-100%) -Necrotic Tissue Type Eschar -Structure Exposed N/A -Texture (Carmen-wound Skin Appearance) Assessed -Moisture (Carmen-wound Skin Appearance Assessed ) -Color (Carmen-wound Skin Appearance) Assessed -Temperature (Carmen-wound Skin No Abnormality Appearance) (Pt Warm) -Tenderness on Palpation (Carmen-wound No Skin Appearance) -Ulcer Cleansing Rinsed/ Irrigated with Saline -Foul Odor after Cleansing No -Anesthetic Used 5% Lidocaine Gel #1 RIGHT HEEL -Combined with other wound No -Current Size (cm) - Length 2.2 -Current Size (cm) - Width 1.3 -Current Size (cm) - Depth 0.4 -Total Square Cm 2.86 -Tunneling No -Undermining/Tunneling No -Exudate Amt Small -Exudate Type Serosanguineous -Wound Margin Thickened & Rolled Under -Granulation Amt Medium (34-66%) -Granulation Quality [place] -Slough/Fibrin Yes -Necrosis Amt Small (1-33%) -Necrotic Tissue Type Adherent Slough -Structure Exposed N/A -Texture (Carmen-wound Skin Appearance) Assessed -Moisture (Carmen-wound Skin Appearance Assessed ) -Color (Carmen-wound Skin Appearance) Assessed -Temperature (Carmen-wound Skin No Abnormality Appearance) (Pt Warm) -Tenderness on Palpation (Carmen-wound No Skin Appearance) -Ulcer Cleansing Wound Cleanser -Foul Odor after Cleansing No -Anesthetic Used 5% Lidocaine Gel WC - Nurse 2 - General Ulcer CM Notes Start: 02/10/19 10:31 Freq: Status: Active Protocol: Activity Type Activity Date Activity User E-Sign Co-Sign Detail Recorded Client Recorded Date Recorded By Document 02/10/19 11:44 DV [id number] 02/10/19 11:49 DV 02/10/19 11:44 Wound Center Nurse 2 [Procedure/Treatment] 2-right 5th metatarsal cluster -Time 11:44 -Correct Patient Yes -Correct Side, Site, Position Yes -Correct Procedure No -Procedure Performed No -Wound/Ulcer Outcome Not Healed -Treatment Response Procedure Tolerated Well #1 RIGHT HEEL -Time 11:47 -Correct Patient Yes -Correct Side, Site, Position Yes -Correct Procedure Yes -Procedure Performed Yes -Type of Procedure Debridement -Clinical Debridement Subcutaneous -Post Debridement Size (cm) - Length 2.4 -Post Debridement Size (cm) - Width 1.4 -Post Debridement Size (cm) - Depth 0.6 -Total Square Cm 3.36 -Wound/Ulcer Outcome Not Healed -Ulcer Cleansing Rinsed/ Irrigated with Saline -Foul Odor after Cleansing No -Bioengineered Tissue No -Bleeding Controlled with Pressure -Offloading No -Treatment Response Procedure Tolerated Well [See Physician Procedure note for Specifics] Pain Scale: 0-10 Numeric [Pain] -Is Patient Pain Free? Yes Neurological: Neuro grossly intact Psych/Mental Status: Normal Affect, Appropriate Debridement Note Post-Debridement Measurements/Treatment WC - Nurse 2 - General Ulcer CM Notes Start: 02/10/19 10:31 Freq: Status: Active Protocol: Activity Type Activity Date Activity User E-Sign Co-Sign Detail Recorded Client Recorded Date Recorded By Document 02/10/19 11:44 DV [id number] 02/10/19 11:49 DV 02/10/19 11:44 Wound Center Nurse 2 2-right 5th metatarsal cluster -Time 11:44 -Correct Patient Yes -Correct Side, Site, Position Yes -Correct Procedure No -Procedure Performed No -Wound/Ulcer Outcome Not Healed -Treatment Response Procedure Tolerated Well #1 RIGHT HEEL -Time 11:47 -Correct Patient Yes -Correct Side, Site, Position Yes -Correct Procedure Yes -Procedure Performed Yes -Type of Procedure Debridement -Clinical Debridement Subcutaneous -Post Debridement Size (cm) - Length 2.4 -Post Debridement Size (cm) - Width 1.4 -Post Debridement Size (cm) - Depth 0.6 -Total Square Cm 3.36 -Wound/Ulcer Outcome Not Healed -Ulcer Cleansing Rinsed/ Irrigated with Saline -Foul Odor after Cleansing No -Bioengineered Tissue No -Bleeding Controlled with Pressure -Offloading No -Treatment Response Procedure Tolerated Well Pain Scale: 0-10 Numeric Is Patient Pain Free? Yes Wound debrided: right heel ulcer Laterality: Right Type of Debridement: Excisional debridement Anesthesia Used: 5% Lidocaine Gel Depth: in the subcutaneous layer Percentage of wound debrided: 100 Instrument Used: 5mm curette Tissue Removed: slough and devitalized tissue Severity: Fat Layer Exposed Amount of bleeding with debridement: Mild Bleeding Controlled with: Compression and gauze Patient tolerated procedure well Assessment/Plan Assessment: As noted above Plan: Courtesy visit for Dr Barber. Patient was carefully examined and evaluated again for her right heel ulcer. A subcutaneous debridement was performed as noted in the clinical panel, which patient tolerated well. Per last note, the patient had a vascular procedure performed by Dr. Almaguer, who in his procedure note stated that he was able to reestablish flow through the posterior tibial artery, but he was unable to improve any flow through the anterior tibial artery. The full report from the patient's surgical procedure can be found in the patient's chart. The patient's daily dressing changes to the heel include: Santyl to the base followed by a dry dressing. Prescription for Santyl given to the patient prior. The patient was instructed to change her dressing in this manner on a daily basis. She may continue utilizing daily iodine to the callused necrotic areas on the right distal foot. The patient is to keep all weight and pressure completely off of the heel at all times while either seated or laying down. While laying down she is to keep pillows under her calves to make sure that nothing but air is touching the heel. She is to keep any kind of pressure to the forefoot if she absolutely needs to be up to move from one place to another, and use knee-roller whenever possible. I also recommend a diet high in protein to help optimize patient's ulcer healing potential. The patient was educated on all signs and symptoms of local and systemic infection she was instructed to go to the emergency room immediately should she notice any of these. All other questions were answered to the patient's satisfaction. Patient will follow back up in clinic in 1 week to check on progress but was instructed to follow-up sooner if needed for any reason before then. Code Visit [id number]: [id number] Tavia subq tissue 20 sq cm/<
[2019-02-17 10:35] VITALS: BP 96/66; PULSE 89; RESP 18; TEMP 36.2; BMI 20.4
--- NOTE | 2019-02-17 14:02 | PN.PCM_ITS ---
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 layer exposed Status: Chronic Current Visit: No Code(s): L97.412 - Non-pressure chronic ulcer of right heel and midfoot with fat layer exposed (2) Type 2 diabetes mellitus with diabetic polyneuropathy Status: Chronic Current Visit: No Code(s): E11.42 - Type 2 diabetes mellitus with diabetic polyneuropathy (3) Delayed wound healing Status: Chronic Current Visit: No Code(s): T14.8XXD - Other injury of unspecified body region, subsequent encounter (4) Lower extremity edema Status: Chronic Current Visit: No Code(s): R60.0 - Localized edema (5) PVD (peripheral vascular disease) Status: Chronic Current Visit: No Code(s): I73.9 - Peripheral vascular disease, unspecified Type of Wound Date of Service: 02/17/19 Chief Complaint: Right heel ulcer History of Wound: This patient with history of right heel ulcer, uncontrolled diabetes, as well as multiple other comorbidities was consulted to the wound healing center for her ongoing right heel ulcer. Patient says that she noticed the area about a month prior to coming to [facility] and had very slowly been worsening. She denies noticing any drainage, surrounding redness, or increased warmth to the area. She had been keeping the area dressed the best she can. She does admit to walking on her heel and not completely keeping the area offloaded. She currently denies any feelings of nausea, vomiting, fever, chills. Progress of Wound: Courtesy visit for Dr. Barber. Ulcer shows slight improvement. The patient denies any fever, chills, nausea, vomiting, or diarrhea. Denies any signs of infection, including increasing pain, redness, swelling, or purulent/foul-smelling drainage from affected area. - Physical Exam Vital Signs Temp Pulse Resp BP 97.1 F L 89 18 96/66 02/17/19 10:35 02/17/19 10:35 02/17/19 10:35 02/17/19 10:35 General: Alert, Oriented x3, Cooperative, No apparent distress HEENT: Atraumatic, EOMI, Normocephalic Extremities: No clubbing, No cyanosis, No edema, Capillary Refill Less than 3 Seconds, Peripheral Pulses Normal Skin: Ulcer/ Wound - Right heel DFU; see nursing documentation. No erythema, no swelling, no drainage. Mild tenderness on manipulation of DFU. Does not probe to bone. Wound Measurements and Assessment WC - Nurse 1 - General Ulcer Measurement Start: 02/10/19 10:31 Freq: Status: Active Protocol: Activity Type Activity Date Activity User E-Sign Co-Sign Detail Recorded Client Recorded Date Recorded By Document 02/17/19 10:35 BRAD [id number] 02/17/19 10:41 BRAD 02/17/19 10:35 Wound Center Nurse 1 [Ulcer Assessment] 2-right 5th metatarsal cluster -Combined with other wound No -Current Size (cm) - Length 2.2 -Current Size (cm) - Width 2.4 -Current Size (cm) - Depth 0.1 -Total Square Cm 5.28 -Photo Taken No -Epithelialization None Present -Tunneling No -Undermining/Tunneling No -Circular Undermining No -Exudate Amt None Present -Wound Margin Flat & Intact -Granulation Amt None Present (0 %) -Slough/Fibrin Yes -Necrosis Amt Large (67-100%) -Necrotic Tissue Type Eschar -Structure Exposed N/A -Texture (Carmen-wound Skin Appearance) Assessed -Moisture (Carmen-wound Skin Appearance Assessed,Dry/ ) Scaly -Color (Carmen-wound Skin Appearance) Assessed -Temperature (Carmen-wound Skin No Abnormality Appearance) (Pt Warm) -Tenderness on Palpation (Carmen-wound No Skin Appearance) -Ulcer Cleansing Rinsed/ Irrigated with Saline -Foul Odor after Cleansing No -Anesthetic Used 4% Lidocaine Solution #1 RIGHT HEEL -Combined with other wound No -Current Size (cm) - Length 1.0 -Current Size (cm) - Width 1.2 -Current Size (cm) - Depth 0.3 -Total Square Cm 1.20 -Photo Taken No -Epithelialization None Present -Tunneling No -Undermining/Tunneling No -Circular Undermining No -Exudate Amt Medium -Exudate Type Serosanguineous -Wound Margin Flat & Intact -Granulation Amt None Present (0 %) -Slough/Fibrin Yes -Necrosis Amt Large (67-100%) -Necrotic Tissue Type Adherent Slough -Structure Exposed N/A -Texture (Carmen-wound Skin Appearance) Assessed,Callus -Moisture (Carmen-wound Skin Appearance Assessed,Dry/ ) Scaly -Color (Carmen-wound Skin Appearance) Assessed -Temperature (Carmen-wound Skin No Abnormality Appearance) (Pt Warm) -Tenderness on Palpation (Carmen-wound No Skin Appearance) -Ulcer Cleansing Rinsed/ Irrigated with Saline -Foul Odor after Cleansing No -Anesthetic Used 4% Lidocaine Solution [Edema Assessment] -Lower Limb Edema Present No WC - Nurse 2 - General Ulcer CM Notes Start: 02/10/19 10:31 Freq: Status: Active Protocol: Activity Type Activity Date Activity User E-Sign Co-Sign Detail Recorded Client Recorded Date Recorded By Document 02/17/19 11:01 DV [id number] 02/17/19 11:06 DV 02/17/19 11:01 Wound Center Nurse 2 [Procedure/Treatment] 2-right 5th metatarsal cluster -Time 11:03 -Correct Patient Yes -Correct Side, Site, Position Yes -Correct Procedure No -Procedure Performed No -Post Debridement Size (cm) - Length 2.3 -Post Debridement Size (cm) - Width 1.4 -Post Debridement Size (cm) - Depth 0.7 -Total Square Cm 3.22 -Wound/Ulcer Outcome Not Healed -Ulcer Cleansing Rinsed/ Irrigated with Saline -Foul Odor after Cleansing No -Bioengineered Tissue No -Bleeding Controlled with Pressure -Type of Offloading Surgical Shoe -Treatment Response Procedure Not Tolerated Well #1 RIGHT HEEL -Time 11:03 -Correct Patient Yes -Correct Side, Site, Position Yes -Correct Procedure Yes -Procedure Performed Yes -Type of Procedure Debridement -Clinical Debridement Subcutaneous -Post Debridement Size (cm) - Length 2.3 -Post Debridement Size (cm) - Width 1.4 -Post Debridement Size (cm) - Depth 0.7 -Total Square Cm 3.22 -Wound/Ulcer Outcome Not Healed -Ulcer Cleansing Rinsed/ Irrigated with Saline -Foul Odor after Cleansing No -Bioengineered Tissue No -Bleeding Controlled with Pressure -Offloading No -Type of Offloading Surgical Shoe -Treatment Response Procedure Not Tolerated Well [See Physician Procedure note for Specifics] Musculoskeletal: Tenderness - Mild tenderness on manipulation of right heel DFU Neurological: Neuro grossly intact Psych/Mental Status: Normal Affect, Appropriate Debridement Note Post-Debridement Measurements/Treatment WC - Nurse 2 - General Ulcer CM Notes Start: 02/10/19 10:31 Freq: Status: Active Protocol: Activity Type Activity Date Activity User E-Sign Co-Sign Detail Recorded Client Recorded Date Recorded By Document 02/10/19 11:44 DV [id number] 02/10/19 11:49 DV Document 02/17/19 11:01 DV [id number] 02/17/19 11:06 DV 02/10/19 02/17/19 11:44 11:01 Wound Center Nurse 2 2-right 5th metatarsal cluster -Time 11:44 11:03 -Correct Patient Yes Yes -Correct Side, Site, Position Yes Yes -Correct Procedure No No -Procedure Performed No No -Post Debridement Size (cm) - Length 2.3 -Post Debridement Size (cm) - Width 1.4 -Post Debridement Size (cm) - Depth 0.7 -Total Square Cm 3.22 -Wound/Ulcer Outcome Not Healed Not Healed -Ulcer Cleansing Rinsed/ Irrigated with Saline -Foul Odor after Cleansing No -Bioengineered Tissue No -Bleeding Controlled with Pressure -Type of Offloading Surgical Shoe -Treatment Response Procedure Procedure Not Tolerated Well Tolerated Well #1 RIGHT HEEL -Time 11:47 11:03 -Correct Patient Yes Yes -Correct Side, Site, Position Yes Yes -Correct Procedure Yes Yes -Procedure Performed Yes Yes -Type of Procedure Debridement Debridement -Clinical Debridement Subcutaneous Subcutaneous -Post Debridement Size (cm) - Length 2.4 2.3 -Post Debridement Size (cm) - Width 1.4 1.4 -Post Debridement Size (cm) - Depth 0.6 0.7 -Total Square Cm 3.36 3.22 -Wound/Ulcer Outcome Not Healed Not Healed -Ulcer Cleansing Rinsed/ Rinsed/ Irrigated with Irrigated with Saline Saline -Foul Odor after Cleansing No No -Bioengineered Tissue No No -Bleeding Controlled with Pressure Pressure -Offloading No No -Type of Offloading Surgical Shoe -Treatment Response Procedure Procedure Not Tolerated Well Tolerated Well Pain Scale: 0-10 Numeric Is Patient Pain Free? Yes Wound debrided: Right heel ulceration Laterality: Right Type of Debridement: Excisional debridement Anesthesia Used: 5% Lidocaine Gel Depth: in the subcutaneous layer Percentage of wound debrided: 100 Instrument Used: 7mm curette Tissue Removed: Slough and devitalized tissue Severity: Fat Layer Exposed Amount of bleeding with debridement: Mild Bleeding Controlled with: Compression and gauze Patient tolerated procedure well Assessment/Plan Assessment: As noted above Plan: Courtesy visit for Dr Barber. Patient was carefully examined and evaluated again for her right heel ulcer. A subcutaneous debridement was performed as n oted in the clinical panel, which patient tolerated well. Her wound was dressed with hydrogel and covered with a sterile dressing. Per last note, the patient had a vascular procedure performed by Dr. Almaguer, who in his procedure note stated that he was able to reestablish flow through the posterior tibial artery, but he was unable to improve any flow through the anterior tibial artery. The full report from the patient's surgical procedure can be found in the patient's chart. The patient's daily dressing changes to the heel include: Santyl to the base followed by a dry dressing. Prescription for Santyl given to the patient prior. The patient was instructed to change her dressing in this manner on a daily basis. She may continue utilizing daily iodine to the callused necrotic areas on the right distal foot. The patient is to keep all weight and pressure completely off of the heel at all times while either seated or laying down. While laying down she is to keep pillows under her calves to make sure that nothing but air is touching the heel. She is to keep any kind of pressure to the forefoot if she absolutely needs to be up to move from one place to another, and use knee-roller whenever possible. I also recommend a diet high in protein to help optimize patient's ulcer healing potential. The patient was educated on all signs and symptoms of local and systemic infection she was instructed to go to the emergency room immediately should she notice any of these. All other questions were answered to the patient's satisfaction. Patient will follow back up in clinic in 1 week to check on progress but was instructed to follow-up sooner if needed for any reason before then. Code Visit [id number]: [id number] Tavia subq tissue 20 sq cm/<
[2019-02-24 10:18] VITALS: BP 99/64; PULSE 91; RESP 16; TEMP 36.6; BMI 20.4
--- NOTE | 2019-02-24 10:56 | PCM.WC.PN ---
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 layer exposed Status: Chronic Current Visit: No Code(s): L97.412 - Non-pressure chronic ulcer of right heel and midfoot with fat layer exposed (2) PVD (peripheral vascular disease) Status: Chronic Current Visit: No Code(s): I73.9 - Peripheral vascular disease, unspecified (3) Lower extremity edema Status: Chronic Current Visit: No Code(s): R60.0 - Localized edema (4) Delayed wound healing Status: Chronic Current Visit: No Code(s): T14.8XXD - Other injury of unspecified body region, subsequent encounter (5) Type 2 diabetes mellitus with diabetic polyneuropathy Status: Chronic Current Visit: No Code(s): E11.42 - Type 2 diabetes mellitus with diabetic polyneuropathy Type of Wound Date of Service: 02/24/19 Chief Complaint: Right heel ulcer History of Wound: This patient with history of right heel ulcer, uncontrolled diabetes, as well as multiple other comorbidities was consulted to the wound healing center for her ongoing right heel ulcer. Patient says that she noticed the area about a month prior to [facility] and had very slowly been worsening. She denies noticing any drainage, surrounding redness, or increased warmth to the area. She had been keeping the area dressed the best she can. She does admit to walking on her heel and not completely keeping the area offloaded. She currently denies any feelings of nausea, vomiting, fever, chills. Progress of Wound: Heel ulcer continues to show slight improvement. Patient continues to deny any feelings of nausea, vomiting, fever, chills. - Physical Exam Vital Signs Temp Pulse Resp BP 98 F 91 16 99/64 02/24/19 10:18 02/24/19 10:18 02/24/19 10:18 02/24/19 10:18 General: Alert, Oriented x3, Cooperative, No apparent distress Extremities: No cyanosis, No Calf Tenderness - Negative Gaurang and Jim signs bilateral, Diminished Peripheral Pulses, - - Capillary refill is slightly over 3 seconds to distal digits of the right foot Skin: Ulcer/ Wound - Ulcer to right heel with fat layer exposed. Measurements noted below. There continues to be no bogginess or fluctuance appreciated again today. The base is a mixture of devitalized subcutaneous tissue, adherent slough, fibrin, biofilm, granular tissue, and surrounding hyperkeratotic tissue. There is no probing to bone, no tracking, and no undermining noted. There is no surrounding or extending cellulitis, no purulence, no malodor, no increase in warmth or any other signs of local infection currently appreciated. Wound Measurements and Assessment WC - Nurse 1 - General Ulcer Measurement Start: 02/10/19 10:31 Freq: Status: Active Protocol: Activity Type Activity Date Activity User E-Sign Co-Sign Detail Recorded Client Recorded Date Recorded By Document 02/24/19 10:18 [facility] [id number] 02/24/19 10:26 [facility] 02/24/19 10:18 Wound Center Nurse 1 [Ulcer Assessment] 2-right 5th metatarsal cluster -Combined with other wound No -Current Size (cm) - Length 2.7 -Current Size (cm) - Width 2.1 -Current Size (cm) - Depth 0.1 -Total Square Cm 5.67 -Photo Taken No -Epithelialization None Present -Tunneling No -Undermining/Tunneling No -Circular Undermining No -Exudate Amt Small -Exudate Type Serosanguineous -Wound Margin Distinct, Outline Attached -Granulation Amt None Present (0 %) -Slough/Fibrin Yes -Necrosis Amt Large (67-100%) -Necrotic Tissue Type Eschar -Texture (Carmen-wound Skin Appearance) Assessed,Callus ,Localized Edema,Scarring -Moisture (Carmen-wound Skin Appearance Assessed,Dry/ ) Scaly -Color (Carmen-wound Skin Appearance) Assessed -Temperature (Carmen-wound Skin No Abnormality Appearance) (Pt Warm) -Tenderness on Palpation (Carmen-wound Yes Skin Appearance) -Ulcer Cleansing Rinsed/ Irrigated with Saline -Foul Odor after Cleansing Yes -Anesthetic Used 5% Lidocaine Gel #1 RIGHT HEEL -Combined with other wound No -Current Size (cm) - Length 2.3 -Current Size (cm) - Width 1.4 -Current Size (cm) - Depth 0.6 -Total Square Cm 3.22 -Photo Taken No -Epithelialization None Present -Tunneling No -Undermining/Tunneling No -Circular Undermining No -Exudate Amt Small -Exudate Type Serous -Wound Margin Thickened -Granulation Amt Small (1-33%) -Granulation Quality [place] -Slough/Fibrin Yes -Necrosis Amt Medium (34-66%) -Necrotic Tissue Type Adherent Slough -Texture (Carmen-wound Skin Appearance) Assessed, Localized Edema ,Scarring -Moisture (Carmen-wound Skin Appearance Assessed,Dry/ ) Scaly -Color (Carmen-wound Skin Appearance) Assessed -Temperature (Carmen-wound Skin No Abnormality Appearance) (Pt Warm) -Tenderness on Palpation (Carmen-wound Yes Skin Appearance) -Ulcer Cleansing Rinsed/ Irrigated with Saline -Foul Odor after Cleansing No -Anesthetic Used 5% Lidocaine Gel WC - Nurse 2 - General Ulcer CM Notes Start: 02/10/19 10:31 Freq: Status: Active Protocol: Activity Type Activity Date Activity User E-Sign Co-Sign Detail Recorded Client Recorded Date Recorded By Document 02/24/19 10:43 DV [id number] 02/24/19 10:49 DV 02/24/19 10:43 Wound Center Nurse 2 [Procedure/Treatment] -Time 10:46 -Correct Patient Yes -Correct Side, Site, Position Yes -Correct Procedure Yes -Procedure Performed Yes -Type of Procedure Debridement -Clinical Debridement Subcutaneous -Post Debridement Size (cm) - Length 1.9 -Post Debridement Size (cm) - Width 1.3 -Post Debridement Size (cm) - Depth 0.3 -Total Square Cm 2.47 -Wound/Ulcer Outcome Not Healed -Ulcer Cleansing Rinsed/ Irrigated with Saline -Foul Odor after Cleansing No -Bioengineered Tissue No -Bleeding Controlled with Pressure -Offloading No -Treatment Response Procedure Tolerated Well [See Physician Procedure note for Specifics] Pain Scale: 0-10 Numeric [Pain] -Is Patient Pain Free? Yes Musculoskeletal: Tenderness - Some minor tenderness with manipulation of ulcer site Neurological: - - Altered epicritic sensation noted to bilateral lower extremities consistent with patient's diabetic status Psych/Mental Status: Normal Affect, Appropriate Debridement Note Post-Debridement Measurements/Treatment WC - Nurse 2 - General Ulcer CM Notes Start: 02/10/19 10:31 Freq: Status: Active Protocol: Activity Type Activity Date Activity User E-Sign Co-Sign Detail Recorded Client Recorded Date Recorded By Document 02/10/19 11:44 DV [id number] 02/10/19 11:49 DV Document 02/17/19 11:01 DV [id number] 02/17/19 11:06 DV Document 02/24/19 10:43 DV [id number] 12/19/19 10:49 DV 02/10/19 02/17/19 02/24/19 11:44 11:01 10:43 Wound Center Nurse 2 2-right 5th metatarsal cluster -Time 11:44 11:03 -Correct Patient Yes Yes -Correct Side, Site, Position Yes Yes -Correct Procedure No No -Procedure Performed No No -Post Debridement Size (cm) - Length 2.3 -Post Debridement Size (cm) - Width 1.4 -Post Debridement Size (cm) - Depth 0.7 -Total Square Cm 3.22 -Wound/Ulcer Outcome Not Healed Not Healed -Ulcer Cleansing Rinsed/ Irrigated with Saline -Foul Odor after Cleansing No -Bioengineered Tissue No -Bleeding Controlled with Pressure -Type of Offloading Surgical Shoe -Treatment Response Procedure Procedure Not Tolerated Well Tolerated Well #1 RIGHT HEEL -Time 11:47 11:03 10:46 -Correct Patient Yes Yes Yes -Correct Side, Site, Position Yes Yes Yes -Correct Procedure Yes Yes Yes -Procedure Performed Yes Yes Yes -Type of Procedure Debridement Debridement Debridement -Clinical Debridement Subcutaneous Subcutaneous Subcutaneous -Post Debridement Size (cm) - Length 2.4 2.3 1.9 -Post Debridement Size (cm) - Width 1.4 1.4 1.3 -Post Debridement Size (cm) - Depth 0.6 0.7 0.3 -Total Square Cm 3.36 3.22 2.47 -Wound/Ulcer Outcome Not Healed Not Healed Not Healed -Ulcer Cleansing Rinsed/ Rinsed/ Rinsed/ Irrigated with Irrigated with Irrigated with Saline Saline Saline -Foul Odor after Cleansing No No No -Bioengineered Tissue No No No -Bleeding Controlled with Pressure Pressure Pressure -Offloading No No No -Type of Offloading Surgical Shoe -Treatment Response Procedure Procedure Not Procedure Tolerated Well Tolerated Well Tolerated Well Pain Scale: 0-10 Numeric Is Patient Pain Free? Yes Yes Wound debrided: Right heel Laterality: Right Type of Debridement: Excisional debridement Anesthesia Used: 5% Lidocaine Gel Depth: in the subcutaneous layer Percentage of wound debrided: 100 Instrument Used: 3mm curette Tissue Removed: Devitalized cutaneous tissue, adherent slough, fibrin, biofilm Severity: Fat Layer Exposed Amount of bleeding with debridement: Mild Bleeding Controlled with: Pressure Patient tolerated procedure well Assessment/Plan Assessment: As noted above Plan: Patient was carefully examined and evaluated again for her right heel ulcer. Another subcutaneous debridement was performed as noted in the clinical panel. The patient had a vascular procedure performed by Dr. Almaguer in January, who in his procedure note stated that he was able to reestablish flow through the posterior tibial artery, but he was unable to improve any flow through the anterior tibial artery. The full report from the patient's surgical procedure can be found in the patient's chart. Following debridement today, the ulcer site was then dressed with Santyl to the base followed by a dry sterile dressing. The patient was instructed to change her dressing in this manner on a daily basis. The patient is to keep all weight and pressure completely off of the heel at all times while either seated or laying down. While laying down she is to keep pillows under her calves to make sure that nothing but air is touching the heel. Patient is to continue with knee roller. She is to keep any kind of pressure to the forefoot if she absolutely needs to be up to move from one place to another. I also recommend a diet high in protein to help optimize patient's ulcer healing potential. The patient was educated on all signs and symptoms of local and systemic infection she was instructed to go to the emergency room immediately should she notice any of these. All other questions were answered to the patient's satisfaction. Patient will follow back up in clinic in 2 weeks to check on progress but was instructed to follow-up sooner if needed for any reason before then.
== END 2019-03-08 23:59 ==
LOC: WC 10:15
PROVIDERS: Visit Provider Podiatrist
DX: E11.621 Type 2 diabetes mellitus with foot ulcer (principal); E11.51 Type 2 diabetes mellitus with diabetic peripheral angiopathy without gangrene; E11.65 Type 2 diabetes mellitus with hyperglycemia; L97.412 Non-pressure chronic ulcer of right heel and midfoot with fat layer exposed; R60.0 Localized edema; E11.42 Type 2 diabetes mellitus with diabetic polyneuropathy
CPT/HCPCS: 11042

== ENCOUNTER 2019-03-31 10:30 | Outpatient (RCR) | payer MEDICAID, SELFPAY ==
[2019-03-09 00:42] VITALS: BP 99/64; PULSE 91; RESP 16; TEMP 36.6
[2019-03-10 10:25] VITALS: BP 115/67; PULSE 74; RESP 20; TEMP 36.6; BMI 20.4
--- NOTE | 2019-03-10 12:23 | PN.PCM_ITS ---
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 layer exposed Status: Chronic Current Visit: No Code(s): L97.412 - Non-pressure chronic ulcer of right heel and midfoot with fat layer exposed (2) PVD (peripheral vascular disease) Status: Chronic Current Visit: No Code(s): I73.9 - Peripheral vascular disease, unspecified (3) Lower extremity edema Status: Chronic Current Visit: No Code(s): R60.0 - Localized edema (4) Delayed wound healing Status: Chronic Current Visit: No Code(s): T14.8XXD - Other injury of unspecified body region, subsequent encounter (5) Type 2 diabetes mellitus with diabetic polyneuropathy Status: Chronic Current Visit: No Code(s): E11.42 - Type 2 diabetes mellitus with diabetic polyneuropathy Type of Wound Date of Service: 03/10/19 Chief Complaint: Right heel ulcer History of Wound: This patient with history of right heel ulcer, uncontrolled diabetes, as well as multiple other comorbidities was consulted to the wound healing center for her ongoing right heel ulcer. Patient says that she noticed the area about a month prior to coming [facility] and had very slowly been worsening. She denies noticing any drainage, surrounding redness, or increased warmth to the area. She had been keeping the area dressed the best she can. She does admit to walking on her heel and not completely keeping the area offloaded. She currently denies any feelings of nausea, vomiting, fever, chills. Progress of Wound: Continued improvement appreciated to heel. Patient continues to deny any feelings of nausea, vomiting, fever, chills. - Physical Exam Vital Signs Temp Pulse Resp BP 97.8 F 74 20 H 115/67 03/10/19 10:25 03/10/19 10:25 03/10/19 10:25 03/10/19 10:25 General: Alert, Oriented x3, Cooperative, No apparent distress Extremities: No cyanosis, No Calf Tenderness - Negative Gaurang and Jim signs bilateral, Diminished Peripheral Pulses, - - Capillary refill is slightly over 3 seconds to distal digits of the right foot Skin: Ulcer/ Wound - Ulcer to right heel with fat layer exposed. Measurements noted below. The base is a mixture of devitalized subcutaneous tissue, adherent slough, fibrin, biofilm, increasing amount of granular tissue, and surrounding hyperkeratotic tissue. There is no probing to bone, no tracking, and no undermining noted. There is no surrounding or extending cellulitis, no purulence, no malodor, no increase in warmth or any other signs of local infection currently appreciated. Wound Measurements and Assessment - Nurse 1 - General Ulcer Measurement Start: 03/10/19 10:25 Freq: Status: Active Protocol: Activity Type Activity Date Activity User E-Sign Co-Sign Detail Recorded Client Recorded Date Recorded By Document 03/10/19 10:25 DL [id number] 03/10/19 10:32 DL 03/10/19 10:25 Wound Center Nurse 1 [Ulcer Assessment] 2-right 5th metatarsal cluster -Current Size (cm) - Length 2.8 -Current Size (cm) - Width 2.2 -Current Size (cm) - Depth 0.1 -Total Square Cm 6.16 -Photo Taken No -Exudate Amt None Present -Wound Margin Thickened -Granulation Amt None Present (0 %) -Necrosis Amt Large (67-100%) -Necrotic Tissue Type Eschar -Structure Exposed N/A -Texture (Carmen-wound Skin Appearance) Scarring -Moisture (Carmen-wound Skin Appearance Dry/Scaly ) -Color (Carmen-wound Skin Appearance) No Abnormality -Temperature (Carmen-wound Skin No Abnormality Appearance) (Pt Warm) -Tenderness on Palpation (Carmen-wound No Skin Appearance) -Ulcer Cleansing Rinsed/ Irrigated with Saline -Foul Odor after Cleansing No #1 RIGHT HEEL -Current Size (cm) - Length 1.8 -Current Size (cm) - Width 0.9 -Current Size (cm) - Depth 0.5 -Total Square Cm 1.62 -Photo Taken No -Exudate Amt Small -Exudate Type Serosanguineous -Granulation Amt Small (1-33%) -Granulation Quality [place] -Necrosis Amt Large (67-100%) -Necrotic Tissue Type Adherent Slough -Structure Exposed N/A -Texture (Carmen-wound Skin Appearance) Callus -Moisture (Carmen-wound Skin Appearance Dry/Scaly ) -Color (Carmen-wound Skin Appearance) No Abnormality -Temperature (Carmen-wound Skin No Abnormality Appearance) (Pt Warm) -Tenderness on Palpation (Carmen-wound No Skin Appearance) -Ulcer Cleansing Rinsed/ Irrigated with Saline -Foul Odor after Cleansing No -Anesthetic Used 4% Lidocaine Solution - Nurse 2 - General Ulcer CM Notes Start: 03/10/19 10:25 Freq: Status: Active Protocol: Activity Type Activity Date Activity User E-Sign Co-Sign Detail Recorded Client Recorded Date Recorded By Document 03/10/19 10:57 DV [id number] 03/10/19 10:58 DV Document 03/10/19 10:57 DV [id number] 03/10/19 10:58 DV 03/10/19 03/10/19 10:57 10:57 Wound Center Nurse 2 [Procedure/Treatment] 2-right 5th metatarsal cluster -Time 10:57 10:58 -Correct Patient Yes Yes -Correct Side, Site, Position Yes -Correct Procedure No -Procedure Performed No [See Physician Procedure note for Specifics] Musculoskeletal: Tenderness - Some minor tenderness with manipulation of ulcer site Neurological: - - Altered epicritic sensation noted to bilateral lower extremities consistent with patient's diabetic status Psych/Mental Status: Normal Affect, Appropriate Debridement Note Post-Debridement Measurements/Treatment - Nurse 2 - General Ulcer CM Notes Start: 03/10/19 10:25 Freq: Status: Active Protocol: Activity Type Activity Date Activity User E-Sign Co-Sign Detail Recorded Client Recorded Date Recorded By Document 03/10/19 10:57 DV [id number] 03/10/19 10:58 DV Document 03/10/19 10:57 DV [id number] 03/10/19 10:58 DV 03/10/19 03/10/19 10:57 10:57 Wound Center Nurse 2 2-right 5th metatarsal cluster -Time 10:57 10:58 -Correct Patient Yes Yes -Correct Side, Site, Position Yes -Correct Procedure No -Procedure Performed No Wound debrided: Right heel Laterality: Right Type of Debridement: Excisional debridement Anesthesia Used: 4% Lidocaine Solution Depth: in the subcutaneous layer Percentage of wound debrided: 100 Instrument Used: 3mm curette Tissue Removed: Devitalized subcutaneous tissue, adherent slough, fibrin, biofilm Severity: Fat Layer Exposed Amount of bleeding with debridement: Mild Bleeding Controlled with: Pressure Patient tolerated procedure well Assessment/Plan Assessment: As noted above Plan: Patient was carefully examined and evaluated again for her right heel ulcer. Another subcutaneous debridement was performed as noted in the clinical panel today. The patient had a vascular procedure performed by Dr. Almaguer in January, who in his procedure note stated that he was able to reestablish flow through the posterior tibial artery, but he was unable to improve any flow through the anterior tibial artery. The full report from the patient's surgical procedure can be found in the patient's chart. Following debridement today, the ulcer site was then dressed with Santyl to the base followed by a dry sterile dressing. The patient was instructed to change her dressing in this manner on a daily basis. We will apply for skin substitute to use at next visit if approved by insurance. The patient is to keep all weight and pressure completely off of the heel at all times while either seated or laying down. While laying down she is to keep pillows under her calves to make sure that nothing but air is touching the heel. Patient is to continue with knee roller. She is to keep any kind of pressure to the forefoot if she absolutely needs to be up to move from one place to another. I also recommend a diet high in protein to help optimize patient's ulcer healing potential. The patient was educated on all signs and symptoms of local and systemic infection she was instructed to go to the emergency room immediately should she notice any of these. All other questions were answered to the patient's satisfaction. Patient will follow back up in clinic in 1 week to check on progress but was instructed to follow-up sooner if needed for any reason before then.
[2019-03-17 10:27] VITALS: BP 121/102; PULSE 89; RESP 18; TEMP 36.6; BMI 20.4
--- NOTE | 2019-03-17 12:03 | PCM.WC.PN ---
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 layer exposed Status: Chronic Current Visit: No Code(s): L97.412 - Non-pressure chronic ulcer of right heel and midfoot with fat layer exposed (2) PVD (peripheral vascular disease) Status: Chronic Current Visit: No Code(s): I73.9 - Peripheral vascular disease, unspecified (3) Lower extremity edema Status: Chronic Current Visit: No Code(s): R60.0 - Localized edema (4) Delayed wound healing Status: Chronic Current Visit: No Code(s): T14.8XXD - Other injury of unspecified body region, subsequent encounter (5) Type 2 diabetes mellitus with diabetic polyneuropathy Status: Chronic Current Visit: No Code(s): E11.42 - Type 2 diabetes mellitus with diabetic polyneuropathy Type of Wound Date of Service: 03/17/19 Chief Complaint: Right heel ulcer History of Wound: This patient with history of right heel ulcer, uncontrolled diabetes, as well as multiple other comorbidities was consulted to the wound healing center for her ongoing right heel ulcer. Patient says that she noticed the area about a month prior to [facility] and had very slowly been worsening. She denies noticing any drainage, surrounding redness, or increased warmth to the area. She had been keeping the area dressed the best she can. She does admit to walking on her heel and not completely keeping the area offloaded. She currently denies any feelings of nausea, vomiting, fever, chills. Progress of Wound: Continued improvement appreciated to heel. Escar loosened to forefoot with ulcer to plantar lateral distal foot. Patient continues to deny any feelings of nausea, vomiting, fever, chills. - Physical Exam Vital Signs Temp Pulse Resp BP 97.9 F 89 18 121/102 H 03/17/19 10:27 03/17/19 10:27 03/17/19 10:27 03/17/19 10:27 General: Alert, Oriented x3, Cooperative, No apparent distress Extremities: No cyanosis, No Calf Tenderness - Negative Gaurang and Jim signs bilateral, Diminished Peripheral Pulses, - - Capillary refill is slightly over 3 seconds to distal digits of the right foot Skin: Ulcer/ Wound - Ulcer to right heel as well as to distal plantar lateral foot both with fat layer exposed. Measurements noted below. The base of each ulcer is a mixture of devitalized subcutaneous tissue, adherent slough, fibrin, biofilm, increasing amount of granular tissue, and surrounding hyperkeratotic tissue. There is no probing to bone, no tracking, and no undermining noted. There is no surrounding or extending cellulitis, no purulence, no malodor, no increase in warmth or any other signs of local infection currently appreciated. Wound Measurements and Assessment WC - Nurse 1 - General Ulcer Measurement Start: 03/10/19 10:25 Freq: Status: Active Protocol: Activity Type Activity Date Activity User E-Sign Co-Sign Detail Recorded Client Recorded Date Recorded By Document 03/17/19 10:27 DL [id number] 03/17/19 10:31 DL 03/17/19 10:27 Wound Center Nurse 1 [Ulcer Assessment] 2-right 5th metatarsal cluster -Current Size (cm) - Length 2.6 -Current Size (cm) - Width 1.8 -Current Size (cm) - Depth 0.1 -Total Square Cm 4.68 -Photo Taken No -Exudate Amt None Present -Wound Margin Thickened -Granulation Amt None Present (0 %) -Necrosis Amt Large (67-100%) -Necrotic Tissue Type Eschar -Structure Exposed N/A -Texture (Carmen-wound Skin Appearance) Scarring -Moisture (Carmen-wound Skin Appearance Dry/Scaly ) -Color (Carmen-wound Skin Appearance) No Abnormality -Temperature (Carmen-wound Skin No Abnormality Appearance) (Pt Warm) -Tenderness on Palpation (Carmen-wound No Skin Appearance) -Ulcer Cleansing Rinsed/ Irrigated with Saline -Foul Odor after Cleansing No -Anesthetic Used 4% Lidocaine Solution,5% Lidocaine Gel #1 RIGHT HEEL -Current Size (cm) - Length 1.7 -Current Size (cm) - Width 1.3 -Current Size (cm) - Depth 0.3 -Total Square Cm 2.21 -Photo Taken No -Exudate Amt Small -Exudate Type Serosanguineous -Wound Margin Distinct, Outline Attached -Granulation Amt Large (67-100%) -Granulation Quality [place] -Necrosis Amt Small (1-33%) -Necrotic Tissue Type Adherent Slough -Structure Exposed N/A -Texture (Carmen-wound Skin Appearance) No Abnormality -Moisture (Carmen-wound Skin Appearance No Abnormality ) -Color (Carmen-wound Skin Appearance) No Abnormality -Temperature (Carmen-wound Skin No Abnormality Appearance) (Pt Warm) -Tenderness on Palpation (Carmen-wound No Skin Appearance) -Ulcer Cleansing Rinsed/ Irrigated with Saline -Foul Odor after Cleansing No -Anesthetic Used 4% Lidocaine Solution,5% Lidocaine Gel WC - Nurse 2 - General Ulcer CM Notes Start: 03/10/19 10:25 Freq: Status: Active Protocol: Activity Type Activity Date Activity User E-Sign Co-Sign Detail Recorded Client Recorded Date Recorded By Document 03/17/19 10:55 DV [id number] 03/17/19 11:02 DV 03/17/19 10:55 Wound Center Nurse 2 [Procedure/Treatment] 2-right 5th metatarsal cluster -Time 10:57 -Correct Patient Yes -Correct Side, Site, Position Yes -Correct Procedure Yes -Procedure Performed Yes -Type of Procedure Debridement -Clinical Debridement Subcutaneous -Post Debridement Size (cm) - Length 2.4 -Post Debridement Size (cm) - Width 1.8 -Post Debridement Size (cm) - Depth 0.2 -Total Square Cm 4.32 -Wound/Ulcer Outcome Not Healed -Ulcer Cleansing Rinsed/ Irrigated with Saline -Foul Odor after Cleansing No -Bioengineered Tissue No -Bleeding Controlled with Pressure -Offloading No -Treatment Response Procedure Tolerated Well #1 RIGHT HEEL -Time 10:57 -Correct Patient Yes -Correct Side, Site, Position Yes -Correct Procedure Yes -Procedure Performed Yes -Type of Procedure Debridement -Clinical Debridement Subcutaneous -Post Debridement Size (cm) - Length 1.7 -Post Debridement Size (cm) - Width 1.3 -Post Debridement Size (cm) - Depth 0.5 -Total Square Cm 2.21 -Wound/Ulcer Outcome Not Healed -Ulcer Cleansing Rinsed/ Irrigated with Saline -Foul Odor after Cleansing No -Bioengineered Tissue No -Bleeding Controlled with Pressure -Offloading No -Treatment Response Procedure Tolerated Well [See Physician Procedure note for Specifics] Pain Scale: 0-10 Numeric [Pain] -Is Patient Pain Free? Yes Musculoskeletal: Tenderness - Some minor tenderness with manipulation of ulcer sites Neurological: - - Altered epicritic sensation noted to bilateral lower extremities consistent with patient's diabetic status Psych/Mental Status: Normal Affect, Appropriate Debridement Note Post-Debridement Measurements/Treatment WC - Nurse 2 - General Ulcer CM Notes Start: 03/10/19 10:25 Freq: Status: Active Protocol: Activity Type Activity Date Activity User E-Sign Co-Sign Detail Recorded Client Recorded Date Recorded By Document 03/10/19 10:57 DV [id number] 03/10/19 10:58 DV Document 03/10/19 10:57 DV [id number] 03/10/19 10:58 DV Document 03/17/19 10:55 DV [id number] 03/17/19 11:02 DV 03/10/19 03/10/19 03/17/19 10:57 10:57 10:55 Wound Center Nurse 2 2-right 5th metatarsal cluster -Time 10:57 10:58 10:57 -Correct Patient Yes Yes Yes -Correct Side, Site, Position Yes Yes -Correct Procedure No Yes -Procedure Performed No Yes -Type of Procedure Debridement -Clinical Debridement Subcutaneous -Post Debridement Size (cm) - Length 2.4 -Post Debridement Size (cm) - Width 1.8 -Post Debridement Size (cm) - Depth 0.2 -Total Square Cm 4.32 -Wound/Ulcer Outcome Not Healed -Ulcer Cleansing Rinsed/ Irrigated with Saline -Foul Odor after Cleansing No -Bioengineered Tissue No -Bleeding Controlled with Pressure -Offloading No -Treatment Response Procedure Tolerated Well #1 RIGHT HEEL -Time 10:57 -Correct Patient Yes -Correct Side, Site, Position Yes -Correct Procedure Yes -Procedure Performed Yes -Type of Procedure Debridement -Clinical Debridement Subcutaneous -Post Debridement Size (cm) - Length 1.7 -Post Debridement Size (cm) - Width 1.3 -Post Debridement Size (cm) - Depth 0.5 -Total Square Cm 2.21 -Wound/Ulcer Outcome Not Healed -Ulcer Cleansing Rinsed/ Irrigated with Saline -Foul Odor after Cleansing No -Bioengineered Tissue No -Bleeding Controlled with Pressure -Offloading No -Treatment Response Procedure Tolerated Well Pain Scale: 0-10 Numeric Is Patient Pain Free? Yes Wound debrided: Right heel Laterality: Right Type of Debridement: Excisional debridement Anesthesia Used: 4% Lidocaine Solution Depth: in the subcutaneous layer Percentage of wound debrided: 100 Instrument Used: 3mm curette Tissue Removed: Devitalized subcutaneous tissue, adherent slough, fibrin, biofilm Severity: Fat Layer Exposed Amount of bleeding with debridement: Mild Bleeding Controlled with: Pressure Patient tolerated procedure well - Additional Wound Wound debrided: Right distal plantar lateral foot Laterality: Right Type of Debridement: Excisional debridement Anesthesia Used: 4% Lidocaine Solution Depth: in the subcutaneous layer Percentage of wound debrided: 100 Instrument Used: #15 blade Tissue Removed: Devitalized subcutaneous tissue, eschar, adherent slough, fibrin, biofilm Severity: Fat Layer Exposed Amount of bleeding with debridement: Mild Bleeding Controlled with: Pressure Patient tolerated procedure: Patient tolerated procedure well Assessment/Plan Assessment: As noted above Plan: Patient was carefully examined and evaluated again for her right heel ulcer as well as ulcer to distal plantar lateral right foot. A subcutaneous debridement was performed as noted in the clinical panel today to each site. The patient had a vascular procedure performed by Dr. Almaguer in January, who in his procedure note stated that he was able to reestablish flow through the posterior tibial artery, but he was unable to improve any flow through the anterior tibial artery. The full report from the patient's surgical procedure can be found in the patient's chart. Following debridement today, the ulcer sites were then dressed with Santyl to the base followed by a dry sterile dressing. The patient was instructed to change her dressing in this manner on a daily basis. We will apply for skin substitute to use at next visit if approved by insurance. The patient is to keep all weight and pressure completely off of the heel at all times while either seated or laying down. While laying down she is to keep pillows under her calves to make sure that nothing but air is touching the heel. Patient is to continue with knee roller. She is to keep any kind of pressure to the forefoot if she absolutely needs to be up to move from one place to another. I also recommend a diet high in protein to help optimize patient's ulcer healing potential. The patient was educated on all signs and symptoms of local and systemic infection she was instructed to go to the emergency room immediately should she notice any of these. All other questions were answered to the patient's satisfaction. Patient will follow back up in clinic in 1 week to check on progress but was instructed to follow-up sooner if needed for any reason before then.
[2019-03-24 10:39] VITALS: BP 102/62; PULSE 89; RESP 18; TEMP 36.6; BMI 20.4
--- NOTE | 2019-03-24 11:49 | PN.PCM_ITS ---
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 layer exposed Status: Chronic Current Visit: No Code(s): L97.412 - Non-pressure chronic ulcer of right heel and midfoot with fat layer exposed (2) PVD (peripheral vascular disease) Status: Chronic Current Visit: No Code(s): I73.9 - Peripheral vascular disease, unspecified (3) Lower extremity edema Status: Chronic Current Visit: No Code(s): R60.0 - Localized edema (4) Delayed wound healing Status: Chronic Current Visit: No Code(s): T14.8XXD - Other injury of unspecified body region, subsequent encounter (5) Type 2 diabetes mellitus with diabetic polyneuropathy Status: Chronic Current Visit: No Code(s): E11.42 - Type 2 diabetes mellitus with diabetic polyneuropathy Type of Wound Date of Service: 03/24/19 Chief Complaint: Right heel ulcer History of Wound: This patient with history of right heel ulcer, uncontrolled diabetes, as well as multiple other comorbidities was consulted to the wound healing center for her ongoing right heel ulcer. Patient says that she noticed the area about a month prior to coming [facility] and had very slowly been worsening. She denies noticing any drainage, surrounding redness, or increased warmth to the area. She had been keeping the area dressed the best she can. She does admit to walking on her heel and not completely keeping the area offloaded. She currently denies any feelings of nausea, vomiting, fever, chills. Progress of Wound: Continued improvement appreciated to heel. Slight eschar still noted to forefoot ulcer to plantar lateral distal foot. Patient continues to deny any feelings of nausea, vomiting, fever, chills. - Physical Exam Vital Signs Temp Pulse Resp BP 97.8 F 89 18 102/62 03/24/19 10:39 03/24/19 10:39 03/24/19 10:39 03/24/19 10:39 General: Alert, Oriented x3, Cooperative, No apparent distress Extremities: No cyanosis, No Calf Tenderness - Negative Gaurang and Jim signs bilateral, Diminished Peripheral Pulses, - - Capillary refill is slightly over 3 seconds to distal digits of the right foot Skin: Ulcer/ Wound - Ulcer to right heel as well as to distal plantar lateral foot both with fat layer exposed. Measurements noted below. The base of each ulcer is a mixture of devitalized subcutaneous tissue, adherent slough, fibrin, biofilm, granular tissue, and surrounding hyperkeratotic tissue. There is no probing to bone, no tracking, and no undermining noted. There is no surrounding or extending cellulitis, no purulence, no malodor, no increase in warmth or any other signs of local infection currently appreciated. There is eschar also appreciated to the distal plantar foot ulcer. Wound Measurements and Assessment WC - Nurse 1 - General Ulcer Measurement Start: 03/10/19 10:25 Freq: Status: Active Protocol: Activity Type Activity Date Activity User E-Sign Co-Sign Detail Recorded Client Recorded Date Recorded By Document 03/24/19 10:39 RB [id number] 03/24/19 10:45 RB 03/24/19 10:39 Wound Center Nurse 1 [Ulcer Assessment] 2-right 5th metatarsal cluster -Combined with other wound No -Current Size (cm) - Length 1.6 -Current Size (cm) - Width 0.8 -Current Size (cm) - Depth 0.3 -Total Square Cm 1.28 -Tunneling No -Undermining/Tunneling No -Circular Undermining No -Exudate Amt Small -Exudate Type Serosanguineous -Wound Margin Thickened -Granulation Amt Medium (34-66%) -Granulation Quality Red -Slough/Fibrin Yes -Necrosis Amt Medium (34-66%) -Necrotic Tissue Type Adherent Slough -Structure Exposed N/A -Texture (Carmen-wound Skin Appearance) Callus -Moisture (Carmen-wound Skin Appearance Assessed ) -Color (Carmen-wound Skin Appearance) Assessed -Temperature (Carmen-wound Skin No Abnormality Appearance) (Pt Warm) -Tenderness on Palpation (Carmen-wound No Skin Appearance) -Ulcer Cleansing Rinsed/ Irrigated with Saline -Foul Odor after Cleansing No -Anesthetic Used 4% Lidocaine Solution #1 RIGHT HEEL -Combined with other wound No -Current Size (cm) - Length 2.1 -Current Size (cm) - Width 1.8 -Current Size (cm) - Depth 0.2 -Total Square Cm 3.78 -Tunneling No -Undermining/Tunneling No -Circular Undermining No -Exudate Amt Small -Exudate Type Serosanguineous -Wound Margin Thickened -Granulation Amt Medium (34-66%) -Granulation Quality [place] -Slough/Fibrin Yes -Necrosis Amt Medium (34-66%) -Necrotic Tissue Type Adherent Slough -Structure Exposed N/A -Texture (Carmen-wound Skin Appearance) Callus -Moisture (Carmen-wound Skin Appearance Assessed ) -Color (Carmen-wound Skin Appearance) Assessed -Temperature (Carmen-wound Skin No Abnormality Appearance) (Pt Warm) -Tenderness on Palpation (Carmen-wound No Skin Appearance) -Ulcer Cleansing Wound Cleanser -Foul Odor after Cleansing No -Anesthetic Used 4% Lidocaine Solution [Edema Assessment] -Lower Limb Edema Present Yes -Right Calf (cm) 34 -Right Ankle (cm) 22.2 WC - Nurse 2 - General Ulcer CM Notes Start: 03/10/19 10:25 Freq: Status: Active Protocol: Activity Type Activity Date Activity User E-Sign Co-Sign Detail Recorded Client Recorded Date Recorded By Document 03/24/19 10:57 DV [id number] 03/24/19 11:02 DV 03/24/19 10:57 Wound Center Nurse 2 [Procedure/Treatment] 2-right 5th metatarsal cluster -Time 10:58 -Correct Patient Yes -Correct Side, Site, Position Yes -Correct Procedure Yes -Post Debridement Size (cm) - Length 2.4 -Post Debridement Size (cm) - Width 1.7 -Post Debridement Size (cm) - Depth 0.2 -Total Square Cm 4.08 -Wound/Ulcer Outcome Not Healed -Ulcer Cleansing Rinsed/ Irrigated with Saline -Foul Odor after Cleansing No -Bioengineered Tissue No -Bleeding Controlled with Pressure -Offloading No -Treatment Response Procedure Tolerated Well #1 RIGHT HEEL -Time 10:58 -Correct Patient Yes -Correct Side, Site, Position Yes -Correct Procedure Yes -Procedure Performed Yes -Type of Procedure Debridement -Clinical Debridement Subcutaneous -Post Debridement Size (cm) - Length 1.8 -Post Debridement Size (cm) - Width 1.3 -Post Debridement Size (cm) - Depth 0.3 -Total Square Cm 2.34 -Wound/Ulcer Outcome Not Healed -Ulcer Cleansing Rinsed/ Irrigated with Saline -Foul Odor after Cleansing No -Bioengineered Tissue No -Bleeding Controlled with Pressure -Treatment Response Procedure Tolerated Well [See Physician Procedure note for Specifics] Pain Scale: 0-10 Numeric [Pain] -Is Patient Pain Free? Yes Musculoskeletal: Tenderness - Some minor tenderness with manipulation of ulcer sites Neurological: - - Altered epicritic sensation noted to bilateral lower extremities consistent with patient's diabetic status Psych/Mental Status: Normal Affect, Appropriate Debridement Note Post-Debridement Measurements/Treatment WC - Nurse 2 - General Ulcer CM Notes Start: 03/10/19 10:25 Freq: Status: Active Protocol: Activity Type Activity Date Activity User E-Sign Co-Sign Detail Recorded Client Recorded Date Recorded By Document 03/10/19 10:57 DV [id number] 03/10/19 10:58 DV Document 03/10/19 10:57 DV [id number] 03/10/19 10:58 DV Document 03/17/19 10:55 DV [id number] 03/17/19 11:02 DV Document 03/24/19 10:57 DV [id number] 03/24/19 11:02 DV 03/10/19 03/10/19 03/17/19 10:57 10:57 10:55 Wound Center Nurse 2 2-right 5th metatarsal cluster -Time 10:57 10:58 10:57 -Correct Patient Yes Yes Yes -Correct Side, Site, Position Yes Yes -Correct Procedure No Yes -Procedure Performed No Yes -Type of Procedure Debridement -Clinical Debridement Subcutaneous -Post Debridement Size (cm) - Length 2.4 -Post Debridement Size (cm) - Width 1.8 -Post Debridement Size (cm) - Depth 0.2 -Total Square Cm 4.32 -Wound/Ulcer Outcome Not Healed -Ulcer Cleansing Rinsed/ Irrigated with Saline -Foul Odor after Cleansing No -Bioengineered Tissue No -Bleeding Controlled with Pressure -Offloading No -Treatment Response Procedure Tolerated Well #1 RIGHT HEEL -Time 10:57 -Correct Patient Yes -Correct Side, Site, Position Yes -Correct Procedure Yes -Procedure Performed Yes -Type of Procedure Debridement -Clinical Debridement Subcutaneous -Post Debridement Size (cm) - Length 1.7 -Post Debridement Size (cm) - Width 1.3 -Post Debridement Size (cm) - Depth 0.5 -Total Square Cm 2.21 -Wound/Ulcer Outcome Not Healed -Ulcer Cleansing Rinsed/ Irrigated with Saline -Foul Odor after Cleansing No -Bioengineered Tissue No -Bleeding Controlled with Pressure -Offloading No -Treatment Response Procedure Tolerated Well Pain Scale: 0-10 Numeric Is Patient Pain Free? Yes 03/24/19 10:57 Wound Center Nurse 2 2-right 5th metatarsal cluster -Time 10:58 -Correct Patient Yes -Correct Side, Site, Position Yes -Correct Procedure Yes -Procedure Performed -Type of Procedure -Clinical Debridement -Post Debridement Size (cm) - Length 2.4 -Post Debridement Size (cm) - Width 1.7 -Post Debridement Size (cm) - Depth 0.2 -Total Square Cm 4.08 -Wound/Ulcer Outcome Not Healed -Ulcer Cleansing Rinsed/ Irrigated with Saline -Foul Odor after Cleansing No -Bioengineered Tissue No -Bleeding Controlled with Pressure -Offloading No -Treatment Response Procedure Tolerated Well #1 RIGHT HEEL -Time 10:58 -Correct Patient Yes -Correct Side, Site, Position Yes -Correct Procedure Yes -Procedure Performed Yes -Type of Procedure Debridement -Clinical Debridement Subcutaneous -Post Debridement Size (cm) - Length 1.8 -Post Debridement Size (cm) - Width 1.3 -Post Debridement Size (cm) - Depth 0.3 -Total Square Cm 2.34 -Wound/Ulcer Outcome Not Healed -Ulcer Cleansing Rinsed/ Irrigated with Saline -Foul Odor after Cleansing No -Bioengineered Tissue No -Bleeding Controlled with Pressure -Offloading -Treatment Response Procedure Tolerated Well Pain Scale: 0-10 Numeric Is Patient Pain Free? Yes Wound debrided: Right heel Laterality: Right Type of Debridement: Excisional debridement Anesthesia Used: 4% Lidocaine Solution Depth: in the subcutaneous layer Percentage of wound debrided: 100 Instrument Used: 3mm curette Tissue Removed: Devitalized subcutaneous tissue, adherent slough, fibrin, biofilm Severity: Fat Layer Exposed Amount of bleeding with debridement: Mild Bleeding Controlled with: Pressure Patient tolerated procedure well Assessment/Plan Assessment: As noted above Plan: Patient was carefully examined and evaluated again for her right heel ulcer as well as ulcer to distal plantar lateral right foot. A subcutaneous debridement was performed as noted in the clinical panel to the heel. No significant debridement performed to the plantar distal lateral forefoot due to area of eschar formation. The patient had a vascular procedure performed by Dr. Almaguer in January, who in his procedure note stated that he was able to reestablish flow through the posterior tibial artery, but he was unable to improve any flow through the anterior tibial artery. The full report from the patient's surgical procedure can be found in the patient's chart. Following debridement today, the ulcer sites were then dressed with Santyl to the base of the heel ulcer and Betadine to the base of the plantar distal forefoot ulcer followed by a dry sterile dressing. The patient was instructed to change her dressing in this manner on a daily basis. Skin substitute has been applied for and prior authorization is in process. We will continue to monitor for approval of this. The patient is to keep all weight and pressure completely off of the ulcer sites at all times while either seated or laying down. While laying down she is to keep pillows under her calves to make sure that nothing but air is touching the heel. Patient is to continue with knee roller. She is to keep any kind of pressure to the forefoot if she absolutely needs to be up to move from one place to another. I also recommend a diet high in protein to help optimize patient's ulcer healing potential. The patient was educated on all signs and symptoms of local and systemic infection she was instructed to go to the emergency room immediately should she notice any of these. All other questions were answered to the patient's satisfaction. Patient will follow back up in clinic in 1 week to check on progress but was instructed to follow-up sooner if needed for any reason before then.
[2019-03-31 10:41] VITALS: BP 107/65; PULSE 91; RESP 16; TEMP 37.2; BMI 20.4
--- NOTE | 2019-03-31 12:31 | PN.PCM_ITS ---
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 layer exposed Status: Chronic Current Visit: No Code(s): L97.412 - Non-pressure chronic ulcer of right heel and midfoot with fat layer exposed (2) PVD (peripheral vascular disease) Status: Chronic Current Visit: No Code(s): I73.9 - Peripheral vascular disease, unspecified (3) Lower extremity edema Status: Chronic Current Visit: No Code(s): R60.0 - Localized edema (4) Delayed wound healing Status: Chronic Current Visit: No Code(s): T14.8XXD - Other injury of unspecified body region, subsequent encounter (5) Type 2 diabetes mellitus with diabetic polyneuropathy Status: Chronic Current Visit: No Code(s): E11.42 - Type 2 diabetes mellitus with diabetic polyneuropathy Type of Wound Date of Service: 03/31/19 Chief Complaint: Right heel ulcer History of Wound: This patient with history of right heel ulcer, uncontrolled diabetes, as well as multiple other comorbidities was consulted to the wound healing center for her ongoing right heel ulcer. Patient says that she noticed the area about a month prior to coming [facility] and had very slowly been worsening. She denies noticing any drainage, surrounding redness, or increased warmth to the area. She had been keeping the area dressed the best she can. She does admit to walking on her heel and not completely keeping the area offloaded. She currently denies any feelings of nausea, vomiting, fever, chills. Progress of Wound: Worsening appreciated to right forefoot ulcer to plantar lateral distal foot. Patient also has a dusky right fifth toe with malodor appreciated. Heel ulcer remained stable. - Physical Exam Vital Signs Temp Pulse Resp BP 98.9 F 91 16 107/65 03/31/19 10:41 03/31/19 10:41 03/31/19 10:41 03/31/19 10:41 General: Alert, Oriented x3, Cooperative, No apparent distress Extremities: No Calf Tenderness, Diminished Peripheral Pulses, - - Capillary refill is over 3 seconds to distal digits of the right foot Skin: Ulcer/ Wound - Ulcer to the distal plantar lateral foot noted to have increased amount of eschar/necrotic appearing tissue today. This is extending up towards the patient's fifth toe where she has a new open area in the fourth webspace. The patient's right fifth toe is also starting to turn dusky in appearance. There is malodor appreciated to this area. There is some drainage noted but it does not appear purulent. Ulcer to the right heel is stable with no signs of surrounding infection. Wound Measurements and Assessment WC - Nurse 1 - General Ulcer Measurement Start: 03/10/19 10:25 Freq: Status: Active Protocol: Activity Type Activity Date Activity User E-Sign Co-Sign Detail Recorded Client Recorded Date Recorded By Document 03/31/19 10:41 [facility] [id number] 03/31/19 10:52 [facility] 03/31/19 10:41 Wound Center Nurse 1 [Ulcer Assessment] #3- R 5TH TOE PLANTAR FOLD -Combined with other wound No -Current Size (cm) - Length 0.4 -Current Size (cm) - Width 1.5 -Current Size (cm) - Depth 0.2 -Total Square Cm 0.60 -Date of Last Picture (Recall this 03/31/19 field) -Photo Taken Yes -Epithelialization None Present -Tunneling No -Undermining/Tunneling No -Circular Undermining No -Exudate Amt Small -Exudate Type Sanguineous -Wound Margin Distinct, Outline Attached -Granulation Amt Large (67-100%) -Granulation Quality Red -Slough/Fibrin No -Necrosis Amt None Present (0 %) -Texture (Carmen-wound Skin Appearance) Assessed, Localized Edema -Moisture (Carmen-wound Skin Appearance Assessed ) -Color (Carmen-wound Skin Appearance) Assessed, Ecchymosis -Temperature (Carmen-wound Skin No Abnormality Appearance) (Pt Warm) -Tenderness on Palpation (Carmen-wound No Skin Appearance) -Ulcer Cleansing Rinsed/ Irrigated with Saline -Foul Odor after Cleansing No -Anesthetic Used 5% Lidocaine Gel 2-right 5th metatarsal cluster -Combined with other wound No -Current Size (cm) - Length 1.8 -Current Size (cm) - Width 1.9 -Current Size (cm) - Depth 0.1 -Total Square Cm 3.42 -Photo Taken No -Epithelialization None Present -Tunneling No -Undermining/Tunneling No -Circular Undermining No -Exudate Amt None Present -Wound Margin Distinct, Outline Attached -Granulation Amt None Present (0 %) -Slough/Fibrin Yes -Necrosis Amt Large (67-100%) -Necrotic Tissue Type Eschar -Texture (Carmen-wound Skin Appearance) Assessed,Callus ,Localized Edema,Scarring -Moisture (Carmen-wound Skin Appearance Dry/Scaly ) -Color (Carmen-wound Skin Appearance) Assessed, Erythema -Temperature (Carmen-wound Skin No Abnormality Appearance) (Pt Warm) -Tenderness on Palpation (Carmen-wound No Skin Appearance) -Ulcer Cleansing Rinsed/ Irrigated with Saline -Foul Odor after Cleansing Yes -Anesthetic Used 5% Lidocaine Gel #1 RIGHT HEEL -Combined with other wound No -Current Size (cm) - Length 1.7 -Current Size (cm) - Width 0.8 -Current Size (cm) - Depth 0.3 -Total Square Cm 1.36 -Photo Taken No -Epithelialization None Present -Tunneling No -Undermining/Tunneling No -Circular Undermining No -Exudate Amt None Present -Wound Margin Thickened -Granulation Amt Large (67-100%) -Granulation Quality Pale,[place] -Slough/Fibrin No -Necrosis Amt None Present (0 %) -Texture (Carmen-wound Skin Appearance) Assessed,Callus ,Scarring -Moisture (Carmen-wound Skin Appearance Assessed,Dry/ ) Scaly -Color (Carmen-wound Skin Appearance) Assessed -Temperature (Carmen-wound Skin No Abnormality Appearance) (Pt Warm) -Tenderness on Palpation (Carmen-wound No Skin Appearance) -Ulcer Cleansing Rinsed/ Irrigated with Saline -Foul Odor after Cleansing No -Anesthetic Used 5% Lidocaine Gel Musculoskeletal: Tenderness - Some minor tenderness with manipulation of ulcer sites Neurological: - - Altered epicritic sensation noted to bilateral lower extremities consistent with patient's diabetic status Psych/Mental Status: Normal Affect, Appropriate Debridement Note Post-Debridement Measurements/Treatment WC - Nurse 2 - General Ulcer CM Notes Start: 03/10/19 10:25 Freq: Status: Active Protocol: Activity Type Activity Date Activity User E-Sign Co-Sign Detail Recorded Client Recorded Date Recorded By Document 03/10/19 10:57 DV [id number] 03/10/19 10:58 DV Document 03/10/19 10:57 DV [id number] 03/10/19 10:58 DV Document 03/17/19 10:55 DV [id number] 03/17/19 11:02 DV Document 03/24/19 10:57 DV [id number] 03/24/19 11:02 DV 03/10/19 03/10/19 03/17/19 10:57 10:57 10:55 Wound Center Nurse 2 2-right 5th metatarsal cluster -Time 10:57 10:58 10:57 -Correct Patient Yes Yes Yes -Correct Side, Site, Position Yes Yes -Correct Procedure No Yes -Procedure Performed No Yes -Type of Procedure Debridement -Clinical Debridement Subcutaneous -Post Debridement Size (cm) - Length 2.4 -Post Debridement Size (cm) - Width 1.8 -Post Debridement Size (cm) - Depth 0.2 -Total Square Cm 4.32 -Wound/Ulcer Outcome Not Healed -Ulcer Cleansing Rinsed/ Irrigated with Saline -Foul Odor after Cleansing No -Bioengineered Tissue No -Bleeding Controlled with Pressure -Offloading No -Treatment Response Procedure Tolerated Well #1 RIGHT HEEL -Time 10:57 -Correct Patient Yes -Correct Side, Site, Position Yes -Correct Procedure Yes -Procedure Performed Yes -Type of Procedure Debridement -Clinical Debridement Subcutaneous -Post Debridement Size (cm) - Length 1.7 -Post Debridement Size (cm) - Width 1.3 -Post Debridement Size (cm) - Depth 0.5 -Total Square Cm 2.21 -Wound/Ulcer Outcome Not Healed -Ulcer Cleansing Rinsed/ Irrigated with Saline -Foul Odor after Cleansing No -Bioengineered Tissue No -Bleeding Controlled with Pressure -Offloading No -Treatment Response Procedure Tolerated Well Pain Scale: 0-10 Numeric Is Patient Pain Free? Yes 03/24/19 10:57 Wound Center Nurse 2 2-right 5th metatarsal cluster -Time 10:58 -Correct Patient Yes -Correct Side, Site, Position Yes -Correct Procedure Yes -Procedure Performed -Type of Procedure -Clinical Debridement -Post Debridement Size (cm) - Length 2.4 -Post Debridement Size (cm) - Width 1.7 -Post Debridement Size (cm) - Depth 0.2 -Total Square Cm 4.08 -Wound/Ulcer Outcome Not Healed -Ulcer Cleansing Rinsed/ Irrigated with Saline -Foul Odor after Cleansing No -Bioengineered Tissue No -Bleeding Controlled with Pressure -Offloading No -Treatment Response Procedure Tolerated Well #1 RIGHT HEEL -Time 10:58 -Correct Patient Yes -Correct Side, Site, Position Yes -Correct Procedure Yes -Procedure Performed Yes -Type of Procedure Debridement -Clinical Debridement Subcutaneous -Post Debridement Size (cm) - Length 1.8 -Post Debridement Size (cm) - Width 1.3 -Post Debridement Size (cm) - Depth 0.3 -Total Square Cm 2.34 -Wound/Ulcer Outcome Not Healed -Ulcer Cleansing Rinsed/ Irrigated with Saline -Foul Odor after Cleansing No -Bioengineered Tissue No -Bleeding Controlled with Pressure -Offloading -Treatment Response Procedure Tolerated Well Pain Scale: 0-10 Numeric Is Patient Pain Free? Yes No debridement was completed today Assessment/Plan Assessment: As noted above Plan: Patient was carefully examined and evaluated again for her right heel ulcer as well as ulcer to distal plantar lateral right foot. Due to the worsening of the right forefoot ulcer with increased amount of eschar/necrotic appearing tissue as well as the new open area to the right fourth interspace including malodor and duskiness to the right fifth toe, I recommend the patient go to the emergency room. I feel this patient needs further vascular intervention if possible to try and save the right fifth toe as well as an infection work-up. The patient has a long history with Dr. Almaguer, and says that she would prefer to go to [facility] in [place] to be admitted. She is with her today and she says he will be driving her over there after h er visit. The patient is to keep all weight and pressure completely off of the ulcer sites at all times while either seated or laying down. While laying down she is to keep pillows under her calves to make sure that nothing but air is touching the heel. Patient is to continue with knee roller. She is to keep any kind of pressure to the forefoot if she absolutely needs to be up to move from one place to another. I also recommend a diet high in protein to help optimize patient's ulcer healing potential. All other questions were answered to the patient's satisfaction. Patient will follow back up in clinic in 1 week if possible to check on progress, but was instructed to follow-up sooner if needed for any reason before then.
== END 2019-04-08 23:59 ==
LOC: WC 10:30
PROVIDERS: Visit Provider Podiatrist
DX: E11.621 Type 2 diabetes mellitus with foot ulcer (principal); E11.51 Type 2 diabetes mellitus with diabetic peripheral angiopathy without gangrene; E11.65 Type 2 diabetes mellitus with hyperglycemia; L97.412 Non-pressure chronic ulcer of right heel and midfoot with fat layer exposed; E11.42 Type 2 diabetes mellitus with diabetic polyneuropathy; L97.512 Non-pressure chronic ulcer of other part of right foot with fat layer exposed
CPT/HCPCS: 11042; 99212; G0463

== ENCOUNTER 2019-05-05 10:00 | Outpatient (RCR) | payer MEDICAID, SELFPAY ==
[2019-04-09 00:42] VITALS: BP 107/65; PULSE 91; RESP 16; TEMP 37.2
[2019-04-22 12:19] VITALS: BP 120/69; PULSE 84; RESP 16; TEMP 36.8; BMI 20.4
--- NOTE | 2019-04-22 17:37 | HBO.CON.PC_ITS ---
(1) Diabetic ulcer of right fifth toe Status: Chronic Current Visit: Yes Code(s): E11.621 - Type 2 diabetes mellitus with foot ulcer; L97.519 - Non-pressure chronic ulcer of other part of right foot with unspecified severity Comment: with gangrene s/p partial fifth ray amputation (2) Diabetic ulcer of right midfoot associated with diabetes mellitus due to underlying condition, with necrosis of muscle Status: Chronic Current Visit: Yes Code(s): E08.621 - Diabetes mellitus due to underlying condition with foot ulcer; L97.413 - Non-pressure chronic ulcer of right heel and midfoot with necrosis of muscle (3) Diabetic ulcer of right heel Status: Chronic Current Visit: Yes Qualifiers: Diabetes mellitus type: type 2 Non-pressure ulcer stage: with fat layer exposed Qualified Code(s): E11.621 - Type 2 diabetes mellitus with foot ulcer; L97.412 - Non-pressure chronic ulcer of right heel and midfoot with fat layer exposed Code(s): E11.621 - Type 2 diabetes mellitus with foot ulcer; L97.419 - Non- pressure chronic ulcer of right heel and midfoot with unspecified severity (4) Chronic ulcer of right heel with fat layer exposed Status: Chronic Current Visit: Yes Code(s): L97.412 - Non-pressure chronic ulcer of right heel and midfoot with fat layer exposed (5) Delayed wound healing Status: Chronic Current Visit: Yes Code(s): T14.8XXD - Other injury of unspecified body region, subsequent encounter (6) Type 2 diabetes mellitus with diabetic polyneuropathy Status: Chronic Current Visit: Yes Qualifiers: Diabetes mellitus mcfp insulin use: with mcfp use Qualified Code(s): E11.42 - Type 2 diabetes mellitus with diabetic polyneuropathy; Z79.4 - intermediate accountant (current) use of insulin Code(s): E11.42 - Type 2 diabetes mellitus with diabetic polyneuropathy (7) PAD (peripheral artery disease) Status: Chronic Current Visit: Yes Code(s): I73.9 - Peripheral vascular disease, unspecified (8) S/P CABG x 3 Status: Chronic Current Visit: Yes Code(s): Z95.1 - Presence of aortocoronary bypass graft History of Present Illness Date of Service: 04/22/19 Presenting Chief Complaint: Right heel ulcer, right 5th toe/midfoot ulcer s/p partial 5th ray amputation The patient is a 58 year old F who [facility] to evaluate the possibility of initiating hyperbaric oxygen therapy for treatment of Urbano Grade 4 foot ulcer of her right lateral midfoot s/p fifth partial ray amputation on 04/06/2019 and angioplasty of her right popliteal artery in the setting of Diabetes mellitus type 2. This ulcer has been present since October. Current measurements are not available. She has a wound vac in place. The surgical specimen removed measured 5.6 x 3.1 x2.9 cm and it has been 2 weeks since her surgery. The surgical pathology showed necrosis of the bone and acute osteomyelitis which would indicate the ulcer is a Urbano Grade 4. She has undergone standard wound care treatment since October 2018 and there was no measurable signs of healing and she had worsening infection which resulted in her surgery on 04/06/2019. She had revascularization in December 2018 of the arteries in her right leg and again as stated above on 04/06/2019 angioplasty of right popliteal artery was performed with resolution of the stenosis. Albumin and protein levels are normal. A pre-albumin level was ordered. Her most recent A1C was 8.8% on 04/01/2019. She reports that her FBS this AM was 154. She is wearing a [employer] surgical shoe for offloading and also uses a knee walker and walker at home to offload her foot. She was treated with IV Vancomycin while in the hospital and was discharged with an oral antibiotic but she does not recall the name of it. Surgical debridement was performed on 04/06/2019 with 5th ray partial amputation and she has been having wound vac treatment as her dressings currently. 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 ulcer of right midfoot associated with diabetes mellitus due to underlying condition, with necrosis of muscle (Chronic) Diabetic ulcer of right heel (Chronic) PAD (peripheral artery disease) (Chronic) S/P CABG x 3 (Chronic) Allergies/Adverse Reactions: Allergies No Known Allergies Allergy (Verified 12/16/18 09:40) Home Medications: Ambulatory Orders Medication Instructions Recorded Aspirin 81 mg PO DAILY 12/16/18 Atorvastatin Calcium 40 mg PO DAILY 12/16/18 Bupropion HCl [Bupropion Xl] 300 mg PO DAILY 12/16/18 Clopidogrel Bisulfate [Clopidogrel] 75 mg PO DAILY 12/16/18 Furosemide [Lasix] 20 mg PO DAILY 12/16/18 Gabapentin [Neurontin] 100 mg PO BID 12/16/18 Glimepiride [Amaryl] 2 mg PO DAILY 12/16/18 Metformin HCl [Metformin HCl ER] 1,000 mg PO BID 12/16/18 Spironolactone 25 mg PO DAILY 12/16/18 Basaglar Kwikpen U-100 19 units SQ DAILY 04/22/19 Maternal Family History: No pertinent history Lives: Spouse/ Significant Other Smoking Status: Former smoker Alcohol: None Drugs: None Review of Systems Constitutional: Denies: Chills, Fever, Weight Change Eyes: Denies: Pain, Vision Change HEENT: Denies: Difficulty Hearing, Difficulty Swallowing, Sinus Congestion Cardiovascular: Denies: Chest Pain, Palpitations Respiratory: Denies: Cough, Shortness of Breath Gastrointestinal: Denies: Diarrhea, Nausea, Vomiting Genitourinary: Denies: Dysuria, Hematuria Musculoskeletal: Reports: Foot Pain Skin: Reports: Wounds Endocrine: Denies: Heat/ Cold Intolerance, Polydipsia, Polyuria Hematologic/ Lymphatic: Denies: Easy Bruising, Easy Bleeding - Physical Exam Vital Signs Temp Pulse Resp BP 98.2 F 84 16 120/69 04/22/19 12:19 04/22/19 12:19 04/22/19 12:19 04/22/19 12:19 General: Alert, Oriented x3, Cooperative, No apparent distress HEENT: Atraumatic, Normocephalic Oral: Moist Mucosa Neck: Supple, No JVD, Negative Carotid Bruits, Trachea Midline Lungs: Clear to auscultation, Normal air movement, No rhonchi, No wheeze, No rales Cardiovascular: Regular rate, Regular Rhythm, No murmurs Abdomen: Soft, Non Tender Extremities: Edema, Peripheral Pulses Normal Skin: Ulcer/ Wound Neurological: Cranial nerves II-XII grossly intact Psych/Mental Status: Normal Affect, Appropriate Assessment/Plan Active Problems Chronic ulcer of right heel with fat layer exposed (Chronic) Delayed wound healing (Chronic) Type 2 diabetes mellitus with diabetic polyneuropathy (Chronic) 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 Hyperbaric Oxygen Therapy would be an essential adjunct in the resolution and treatment of this patient's presenting problem. This patient has sufficient physiologic and psychological stamina to undergo the rigors of hyperbaric oxygen therapy. As such, I recommend the following: Hyperbaric Oxygen Treatments at 2.0 SAMARA in 100% Oxygen for 90 minutes per treatment, for 40 treatments with the goal to heal her ulcer in conjunction with regular debridements and standard wound care and advanced wound care such as skin substitutes if appropriate. I have discussed the possible benefits of hyperbaric oxygen therapy with this patient. I have also presented and described the risks, including: air gas embolism, pneumothorax, central nervous system and pulmonary oxygen toxicity, flash pulmonary edema, hypoglycemia, reversible visual refractive changes, ear and sinus joe-trauma, and confinement anxiety. The patient has verbalized understanding of these risks, and is still wanting to undergo hyperbaric oxygen therapy. The patient understands the significant time and transportation commitment involved in daily treatments of up to two hours duration and has stated that they are willing to commit to this therapy. - HBOT Diagnosis - - Urbano grade 4 diabetic lower extremity, foot Acute Osteomyelitis (730.05)
[2019-04-28 10:39] VITALS: BP 118/69; PULSE 79; RESP 20; TEMP 36.3; BMI 20.4
--- NOTE | 2019-04-28 12:36 | PCM.WC.PN ---
(1) Ulcer of right foot with fat layer exposed Status: Acute Current Visit: Yes Code(s): L97.512 - Non-pressure chronic ulcer of other part of right foot with fat layer exposed (2) Chronic ulcer of right heel with fat layer exposed Status: Chronic Current Visit: Yes Code(s): L97.412 - Non-pressure chronic ulcer of right heel and midfoot with fat layer exposed (3) PVD (peripheral vascular disease) Status: Chronic Current Visit: No Code(s): I73.9 - Peripheral vascular disease, unspecified (4) Delayed wound healing Status: Chronic Current Visit: Yes Code(s): T14.8XXD - Other injury of unspecified body region, subsequent encounter (5) Type 2 diabetes mellitus with diabetic polyneuropathy Status: Chronic Current Visit: Yes Qualifiers: Diabetes mellitus senior care insulin use: with senior care use Qualified Code(s): E11.42 - Type 2 diabetes mellitus with diabetic polyneuropathy; Z79.4 - [facility] (current) use of insulin Code(s): E11.42 - Type 2 diabetes mellitus with diabetic polyneuropathy (6) PAD (peripheral artery disease) Status: Chronic Current Visit: Yes Code(s): I73.9 - Peripheral vascular disease, unspecified Type of Wound Date of Service: 04/28/19 Chief Complaint: Right heel ulcer, right lateral foot ulcer s/p partial 5th ray amputation History of Wound: This patient with history of right heel ulcer, uncontrolled diabetes, as well as multiple other comorbidities was consulted to the wound healing center for her ongoing right heel ulcer. Patient says that she noticed the area about a month prior to coming [facility] and had very slowly been worsening. She denies noticing any drainage, surrounding redness, or increased warmth to the area. She had been keeping the area dressed the best she can. She does admit to walking on her heel and not completely keeping the area offloaded. She currently denies any feelings of nausea, vomiting, fever, chills. Progress of Wound: Patient presents to the wound healing center again today for her first visit back following another revascularization procedure by Dr. Almaguer as well as an open partial right fifth ray resection by Dr. Shipley. Patient has been having wound VAC applied to her surgical site to the right lateral foot. Patient also has dressing applied to the right heel. She currently denies any signs of infection. - Physical Exam Vital Signs Temp Pulse Resp BP 97.4 F L 79 20 H 118/69 04/28/19 10:39 04/28/19 10:39 04/28/19 10:39 04/28/19 10:39 General: Alert, Oriented x3, Cooperative, No apparent distress Extremities: No cyanosis, No Calf Tenderness - Negative Gaurang and Jim signs bilateral, Diminished Peripheral Pulses Skin: Ulcer/ Wound - Ulcer to right heel with fat layer exposed. The base is a mixture of devitalized subcutaneous tissue, adherent slough, fibrin, biofilm, as well as an increasing amount of granular tissue. There is some slight surrounding hyperkeratotic tissue to the site. There is no probing to bone, no tracking, no undermining, no surrounding or extending cellulitis, no purulence, no malodor, no increase in warmth, or any other signs of local infection to the site. There is also an open surgical site s/p right partial fifth ray amputation. Some sutures remain intact to the proximal aspect of this surgical site with skin edges well approximated. Distally the surgical site was left open and the base is noted to be a mixture of devitalized subcutaneous tissue, fibrotic tissue, adherent slough, biofilm, as well as some very minor surrounding maceration. There is no purulence noted today. There is no malodor. There is no extending/streaking/surrounding cellulitis. No bone able to be visualized or probed through the surgical site today. Wound Measurements and Assessment WC - Nurse 1 - General Ulcer Measurement Start: 04/22/19 12:10 Freq: Status: Active Protocol: Activity Type Activity Date Activity User E-Sign Co-Sign Detail Recorded Client Recorded Date Recorded By Document 04/28/19 10:39 DL [id number] 04/28/19 10:51 DL 04/28/19 10:39 Wound Center Nurse 1 [Ulcer Assessment] #4 R 5th toe Amp Site -Current Size (cm) - Length 3 -Current Size (cm) - Width 3.5 -Current Size (cm) - Depth 0.7 -Total Square Cm 10.5 -Photo Taken Yes -Exudate Amt Small -Exudate Type Serosanguineous -Wound Margin Distinct, Outline Attached -Granulation Amt Small (1-33%) -Granulation Quality [place] -Necrosis Amt Large (67-100%) -Necrotic Tissue Type Adherent Slough -Structure Exposed N/A -Texture (Carmen-wound Skin Appearance) Localized Edema ,Scarring -Moisture (Carmen-wound Skin Appearance No Abnormality ) -Color (Carmen-wound Skin Appearance) Erythema,Rubor -Temperature (Carmen-wound Skin No Abnormality Appearance) (Pt Warm) -Tenderness on Palpation (Carmen-wound Yes Skin Appearance) -Ulcer Cleansing Wound Cleanser -Foul Odor after Cleansing No -Anesthetic Used 4% Lidocaine Solution #3- R 5TH TOE PLANTAR FOLD -Combined with other wound Yes -Combined with (Name of Wound-Exactly Combined with # as it is documented) 4 2-right 5th metatarsal cluster -Combined with other wound Yes -Combined with (Name of Wound-Exactly Combined with # as it is documented) 4 #1 RIGHT HEEL -Current Size (cm) - Length 1.3 -Current Size (cm) - Width 0.6 -Current Size (cm) - Depth 0.3 -Total Square Cm 0.78 -Photo Taken No -Exudate Amt None Present -Wound Margin Distinct, Outline Attached -Granulation Amt Small (1-33%) -Granulation Quality Pale,[place] -Necrosis Amt Large (67-100%) -Necrotic Tissue Type Adherent Slough -Texture (Carmen-wound Skin Appearance) Callus -Moisture (Carmen-wound Skin Appearance No Abnormality ) -Color (Carmen-wound Skin Appearance) No Abnormality -Temperature (Carmen-wound Skin No Abnormality Appearance) (Pt Warm) -Tenderness on Palpation (Carmen-wound No Skin Appearance) -Ulcer Cleansing Wound Cleanser -Foul Odor after Cleansing No -Anesthetic Used 4% Lidocaine Solution WC - Nurse 2 - General Ulcer CM Notes Start: 04/22/19 12:10 Freq: Status: Active Protocol: Activity Type Activity Date Activity User E-Sign Co-Sign Detail Recorded Client Recorded Date Recorded By Document 04/28/19 11:31 DV [id number] 04/28/19 11:50 DV 04/28/19 11:31 Wound Center Nurse 2 [Procedure/Treatment] #4 R 5th toe Amp Site -Time 11:39 -Correct Patient Yes -Correct Side, Site, Position Yes -Correct Procedure Yes -Procedure Performed Yes -Type of Procedure Debridement -Clinical Debridement Subcutaneous -Post Debridement Size (cm) - Length 3.2 -Post Debridement Size (cm) - Width 3.1 -Post Debridement Size (cm) - Depth 0.8 -Total Square Cm 9.92 -Wound/Ulcer Outcome Not Healed -Ulcer Cleansing Rinsed/ Irrigated with Saline -Foul Odor after Cleansing No -Bioengineered Tissue No -Bleeding Controlled with Pressure -Offloading No -Treatment Response Procedure Tolerated Well #3- R 5TH TOE PLANTAR FOLD -Time 11:39 -Wound/Ulcer Outcome Amputation 2-right 5th metatarsal cluster -Time 11:38 -Correct Patient Yes -Correct Side, Site, Position Yes -Correct Procedure No -Procedure Performed No -Wound/Ulcer Outcome Amputation #1 RIGHT HEEL -Time 11:44 -Correct Patient Yes -Correct Side, Site, Position Yes -Correct Procedure Yes -Procedure Performed Yes -Type of Procedure Debridement -Clinical Debridement Subcutaneous -Post Debridement Size (cm) - Length 1.5 -Post Debridement Size (cm) - Width 1.5 -Post Debridement Size (cm) - Depth 0.9 -Total Square Cm 2.25 -Wound/Ulcer Outcome Not Healed -Ulcer Cleansing Rinsed/ Irrigated with Saline -Foul Odor after Cleansing No -Bioengineered Tissue No -Bleeding Controlled with Pressure -Offloading No -Treatment Response Procedure Tolerated Well [See Physician Procedure note for Specifics] Pain Scale: 0-10 Numeric [Pain] -Is Patient Pain Free? Yes Musculoskeletal: Tenderness - Some tenderness appreciated with manipulation of ulcer sites Neurological: - - Epicritic sensation grossly absent to bilateral lower extremities however there are certain areas in each ulcer site where the patient is able to notice some tenderness. Psych/Mental Status: Normal Affect, Appropriate Debridement Note Post-Debridement Measurements/Treatment WC - Nurse 2 - General Ulcer CM Notes Start: 04/22/19 12:10 Freq: Status: Active Protocol: Activity Type Activity Date Activity User E-Sign Co-Sign Detail Recorded Client Recorded Date Recorded By Document 04/28/19 11:31 DV [id number] 04/28/19 11:50 DV 04/28/19 11:31 Wound Center Nurse 2 #4 R 5th toe Amp Site -Time 11:39 -Correct Patient Yes -Correct Side, Site, Position Yes -Correct Procedure Yes -Procedure Performed Yes -Type of Procedure Debridement -Clinical Debridement Subcutaneous -Post Debridement Size (cm) - Length 3.2 -Post Debridement Size (cm) - Width 3.1 -Post Debridement Size (cm) - Depth 0.8 -Total Square Cm 9.92 -Wound/Ulcer Outcome Not Healed -Ulcer Cleansing Rinsed/ Irrigated with Saline -Foul Odor after Cleansing No -Bioengineered Tissue No -Bleeding Controlled with Pressure -Offloading No -Treatment Response Procedure Tolerated Well #3- R 5TH TOE PLANTAR FOLD -Time 11:39 -Wound/Ulcer Outcome Amputation 2-right 5th metatarsal cluster -Time 11:38 -Correct Patient Yes -Correct Side, Site, Position Yes -Correct Procedure No -Procedure Performed No -Wound/Ulcer Outcome Amputation #1 RIGHT HEEL -Time 11:44 -Correct Patient Yes -Correct Side, Site, Position Yes -Correct Procedure Yes -Procedure Performed Yes -Type of Procedure Debridement -Clinical Debridement Subcutaneous -Post Debridement Size (cm) - Length 1.5 -Post Debridement Size (cm) - Width 1.5 -Post Debridement Size (cm) - Depth 0.9 -Total Square Cm 2.25 -Wound/Ulcer Outcome Not Healed -Ulcer Cleansing Rinsed/ Irrigated with Saline -Foul Odor after Cleansing No -Bioengineered Tissue No -Bleeding Controlled with Pressure -Offloading No -Treatment Response Procedure Tolerated Well Pain Scale: 0-10 Numeric Is Patient Pain Free? Yes Wound debrided: Right heel Laterality: Right Type of Debridement: Excisional debridement Anesthesia Used: 4% Lidocaine Solution Depth: in the subcutaneous layer Percentage of wound debrided: 100 Instrument Used: 3mm curette Tissue Removed: Devitalized subcutaneous tissue, adherent slough, fibrin, biofilm Severity: Fat Layer Exposed Amount of bleeding with debridement: Mild Bleeding Controlled with: Pressure Patient tolerated procedure well - Additional Wound Wound debrided: Right open partial fifth ray amputation site Laterality: Right Type of Debridement: Excisional debridement Anesthesia Used: 4% Lidocaine Solution Depth: in the subcutaneous layer Percentage of wound debrided: 100 Instrument Used: #15 blade, - - Tissue nipper Tissue Removed: Devitalized subcutaneous tissue, adherent slough, fibrotic tissue, biofilm Severity: Fat Layer Exposed Amount of bleeding with debridement: Mild Bleeding Controlled with: Pressure Patient tolerated procedure: Patient tolerated procedure well Assessment/Plan Active Problems Chronic ulcer of right heel with fat layer exposed (Chronic) Delayed wound healing (Chronic) Type 2 diabetes mellitus with diabetic polyneuropathy (Chronic) 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 On April 06, 2019 while admitted at [facility], the patient underwent a right lower extremity arteriogram with angioplasty of the popliteal artery to try and increase blood flow to the right lower extremity. The full detailed report is in the patient's chart and was reviewed. Once the patient had her revascularization procedure, she relates that she also underwent an open partial fifth ray amputation of the right foot by Dr. Shipley. We will try and track down the operative report from this procedure. Other documentation from the patient's hospital stay was also reviewed and is in the patient's chart. At this time, each of the aforementionec ulcer sites were carefully debrided subcutaneously as noted in the clinical panel. Once complete each site was carefully cleansed. Wound VAC was then applied to the open partial fifth ray surgical site. Aquacel Ag was applied to the patient's right heel ulcer followed by dry sterile dressing. The patient is to have her her heel dressing changed daily in this manner. She is to have her wound VAC changed 3 times a week. She relates that she has home health to help her with this. She is to continue to closely monitor for any signs and symptoms of infection to either these areas and she was instructed to go to the emergency room immediately should she notice any of these. The patient is to keep all weight and pressure completely off of the ulcer sites at all times while either seated or laying down. While laying down she is to keep pillows under her calves to make sure that nothing but air is touching the heel. Patient is to continue with knee roller. She is to keep any kind of pressure to the forefoot if she absolutely needs to be up to move from one place to another. I also recommend a diet high in protein to help optimize patient's ulcer healing potential. All other questions were answered to the patient's satisfaction. Patient will follow back up in clinic in 1 week if possible to check on progress, but was instructed to follow-up sooner if needed for any reason before then.
--- NOTE | 2019-05-04 14:24 | WC ---
Patient called around 1330 to ask about her right 4th toe. She stated My foot is warm and very red next to where the 5th toe was removed This nurse asked if she saw any purulent drainage or smelled a foul odor in which she stated no, not really.Patient also stated she has not had any fever or chills and that it looked as though the 4th toe of the right foot may be doing what the 5th toe did which resulted in an amp of that site. This nurse encouraged her to get to the ER and let them determine what is going on, better to be safe than sorry. The patient stated she would get her to take her immediately and will inform the center of the outcome
== END 2019-05-07 23:59 ==
LOC: WC 10:00
PROVIDERS: Visit Provider Podiatrist
DX: E11.621 Type 2 diabetes mellitus with foot ulcer (principal); L97.412 Non-pressure chronic ulcer of right heel and midfoot with fat layer exposed; L97.512 Non-pressure chronic ulcer of other part of right foot with fat layer exposed; M86.171 Other acute osteomyelitis, right ankle and foot; E11.51 Type 2 diabetes mellitus with diabetic peripheral angiopathy without gangrene; E11.42 Type 2 diabetes mellitus with diabetic polyneuropathy; E11.65 Type 2 diabetes mellitus with hyperglycemia; R60.0 Localized edema; Z79.82 Long term (current) use of aspirin; Z79.4 Long term (current) use of insulin; Z79.02 Long term (current) use of antithrombotics/antiplatelets; Z87.891 Personal history of nicotine dependence; Z89.421 Acquired absence of other right toe(s); Z95.1 Presence of aortocoronary bypass graft
CPT/HCPCS: 11042; 97605; 99212; G0463

== ENCOUNTER 2021-02-07 13:15 | Observation (INO) | payer MEDICARE, MEDICAID, SELFPAY ==
[2021-02-07] VITALS (9 sets, daily range): BP systolic 113–148; BP diastolic 54–76; PULSE 72–76; RESP 16–20; TEMP 36.2–37.1; O2SAT 91–100; BMI 24.0
--- NOTE | 2021-02-07 13:38 | ED.RN ---
pt arrives to ed with a picc line in place from [facility]. this rn attempted to flush line to draw blood and was unable to flush. both ports are unable to flush. this rn placed new iv in left arm, blood drawn from that site.
--- NOTE | 2021-02-07 14:52 | EX.ED.DYSGE1 ---
HPI History of Present Illness Chief Complaint: Abn Labs Informant: patient Onset/Context/Timing Onset: Yesterday Context: Gradual Onset Timing: Continuous Quality: Fatigue Location: Generalized Worsened by: Nothing Relieved by: Nothing Narrative Narrative: Patient presents with low hemoglobin that was noticed at the [facility]. Patient states she has a history of anemia and has had multiple blood transfusions. Patient states that she was told her hemoglobin was 6.8. Patient states she feels fatigued and tired. Patient states it is generalized. Patient denies any nausea or vomiting. Patient denies any melena or hematochezia. Patient admits to some mild epigastric abdominal pain. Patient also had a recent left [id number] amputation. [facility] Medical History Amputation of toe of right foot HTN (hypertension) Hyperlipidemia Myocardial infarct Neuropathy Type 2 diabetes mellitus Home Medications aspirin 81 mg PO DAILY 12/16/18 [History Last Taken 02/07/21] atorvastatin 40 mg PO DAILY 12/16/18 [History Last Taken 02/06/21] clopidogrel 75 mg PO DAILY 12/16/18 [History Last Taken 02/07/21] metoprolol succinate 25 mg tablet,extended release 24 hr 25 mg PO DAILY 10/31/19 [History Last Taken 02/07/21] ascorbic acid (vitamin C) 500 mg PO DAILY 02/07/21 [History Last Taken 02/07/21] famotidine 20 mg PO BID 02/07/21 [History Last Taken 02/07/21] ferrous sulfate [FerrouSul] 325 mg PO DAILY 02/07/21 [History Last Taken 02/07/21] fluoxetine 20 mg PO DAILY 02/07/21 [History Last Taken 02/07/21] furosemide 60 mg PO DAILY 02/07/21 [History Last Taken 02/07/21] gabapentin 600 mg PO TID 02/07/21 [History Last Taken 02/07/21] hydralazine 25 mg PO TID 02/07/21 [History Last Taken 02/07/21] hydroxyzine HCl 25 mg PO TID 02/07/21 [History Last Taken 02/07/21] insulin glargine [Lantus Solostar U-100 Insulin] 13 unit SC DAILY 02/07/21 [History Last Taken 02/07/21] insulin regular human [Humulin R Regular U-100 Insuln] 5 unit SUBCUT TIDCM 02/07/21 [History Last Taken 02/07/21] loratadine 10 mg PO DAILY 02/07/21 [History Last Taken 02/07/21] melatonin 3 mg PO QHS 02/07/21 [History Last Taken 02/06/21] multivitamin with minerals 1 tab PO DAILY 02/07/21 [History Last Taken 02/07/21] potassium chloride [Klor-Con M20] 20 meq PO BID 02/07/21 [History Last Taken 02/07/21] Allergy/AdvReac Type Severity Reaction Status Date / Time shellfish derived Allergy Anaphylaxis Verified 02/07/21 13:21 Family History Other CAD (coronary artery disease) Cancer Diabetes Heart disease Hypertension Uterine cancer Social History Smoking Status: Former smoker substance use type: does not use ROS ROS ED Constitutional Constitutional ED: Denies chills or fever(s) Eyes Eyes: Denies blurry vision or change in vision ENT ENT ED: Denies rhinorrhea or sore throat Cardiovascular Cardiovascular: Denies chest pain or palpitations Respiratory/Chest Respiratory/Chest: Reports cough and dyspnea Gastrointestinal Gastrointestinal: Denies melena, nausea or vomiting Genitourinary Genitourinary ED: Denies dysuria or hematuria Musculoskeletal Musculoskeletal: Denies back pain or neck pain Integumentary Denies abscess or rash Neurologic Neurologic: Reports weakness; Denies headache(s) Allergic/Immunologic Allergic/Immunologic ED: Denies mouth swelling or urticaria EXAM Physical Exam Const Vital Signs: 02/07/21 13:15 02/07/21 13:22 02/07/21 16:59 Temperature 97.2 F L Temperature Source Temporal Pulse Rate 75 72 Respiratory Rate 16 16 Respiratory Pattern Normal Blood Pressure 129/63 H 137/75 H Blood Pressure Mean 85 95 Pulse Ox 93 96 Oxygen Delivery Method Room Air Room Air Positive well nourished and well developed General Appearance ED: well developed HEENT Reports moist mucous membranes Eyes PERRL and EOMs intact bilaterally General Eye ED: Yes pale conjunctiva Neck supple and no JVD Resp normal respiratory effort and clear to auscultation bilaterally Cardio regular rate, regular rhythm and no murmurs GI normal to inspection, nondistended, normoactive bowel sounds and non-tender Palpation: soft Extremity normal to inspection General Extremety ED: Negative for edema or tenderness General Extremity: Negative for edema Neuro oriented x3, CN's II-XII intact bilaterally and no sensory deficits noted Sensorium / Orientation: alert Motor Exam: strength 5/5 throughout Psych mental status grossly normal Skin no rashes or lesions noted MDM MDM MDM Narrative Medical decision making narrative: CBC shows a hemoglobin of 6.2 and hematocrit of 21.3. Platelets are slightly elevated at 458. PT with INR and PTT are normal. Comprehensive metabolic profile showed a slightly elevated creatinine of 1.21 and BUN of 27. Alk phos was slightly elevated at 567. Patient was typed and crossed for 2 units of blood. The transfusion was started. Case was discussed with the hospitalist. He will admit the patient for observation for the transfusion. Patient understood and was agreeable with the plan. All questions were answered. Lab Data Attestation: I reviewed the patient's lab results. Labs: Laboratory Results - last 24 hr 02/07/21 02/07/21 02/07/21 13:35 13:35 13:35 WBC 6.0 RBC 2.52 L Hgb 6.2 L Hct 21.3 L MCV 84.5 MCH 24.6 L MCHC 29.1 L RDW Std Deviation 65.1 H RDW Coeff of New 21.2 H Plt Count 458 H MPV 9.0 Immature Gran % (Auto) 0.500 Neut % (Auto) 61.6 Lymph % (Auto) 21.6 [place] % (Auto) 15.4 H Eos % (Auto) 0.2 Baso % (Auto) 0.7 Absolute Neuts (auto) 3.7 Absolute Lymphs (auto) 1.29 Nucleated RBC % 0 Diff Path Review May foll Platelet Estimate SLT INC Polychromasia RARE Hypochromasia 1+ Anisocytosis 2+ Microcytosis 1+ Ovalocytes RARE Retic Count Immature Retic Fraction Retic Hgb Equivalent PT 15.3 H INR 1.3 APTT 34.4 Sodium 134 L Potassium 3.6 Chloride 99 Carbon Dioxide 27.0 Anion Gap 8 BUN 27 H Creatinine 1.21 H Estim Creat Clear Calc 50.50 Est GFR (MDRD) Af Amer 59 L Est GFR (MDRD) Non-Af 48 L BUN/Creatinine Ratio 22.3 H Glucose 203 H Calcium 8.3 L Iron TIBC Iron Saturation Ferritin Total Bilirubin 0.80 AST 17 ALT 12 L Alkaline Phosphatase 567 H Total Protein 6.7 Albumin 1.7 L Globulin 5.0 H Albumin/Globulin Ratio 0.3 L Blood Type Antibody Screen Crossmatch 02/07/21 02/07/21 02/07/21 13:35 13:35 13:35 WBC RBC Hgb Hct MCV MCH MCHC RDW Std Deviation RDW Coeff of New Plt Count MPV Immature Gran % (Auto) Neut % (Auto) Lymph % (Auto) [place] % (Auto) Eos % (Auto) Baso % (Auto) Absolute Neuts (auto) Absolute Lymphs (auto) Nucleated RBC % Diff Path Review Platelet Estimate Polychromasia Hypochromasia Anisocytosis Microcytosis Ovalocytes Retic Count 5.79 H Immature Retic Fraction 24.80 H Retic Hgb Equivalent 22.2 L PT INR APTT Sodium Potassium Chloride Carbon Dioxide Anion Gap BUN Creatinine Estim Creat Clear Calc Est GFR (MDRD) Af Amer Est GFR (MDRD) Non-Af BUN/Creatinine Ratio Glucose Calcium Iron 33 L TIBC 318 Iron Saturation 10.4 L Ferritin 97 Total Bilirubin AST ALT Alkaline Phosphatase Total Protein Albumin Globulin Albumin/Globulin Ratio Blood Type O POSITIVE Antibody Screen NEGATIVE Crossmatch 02/07/21 13:35 WBC RBC Hgb Hct MCV MCH MCHC RDW Std Deviation RDW Coeff of New Plt Count MPV Immature Gran % (Auto) Neut % (Auto) Lymph % (Auto) [place] % (Auto) Eos % (Auto) Baso % (Auto) Absolute Neuts (auto) Absolute Lymphs (auto) Nucleated RBC % Diff Path Review Platelet Estimate Polychromasia Hypochromasia Anisocytosis Microcytosis Ovalocytes Retic Count Immature Retic Fraction Retic Hgb Equivalent PT INR APTT Sodium Potassium Chloride Carbon Dioxide Anion Gap BUN Creatinine Estim Creat Clear Calc Est GFR (MDRD) Af Amer Est GFR (MDRD) Non-Af BUN/Creatinine Ratio Glucose Calcium Iron TIBC Iron Saturation Ferritin Total Bilirubin AST ALT Alkaline Phosphatase Total Protein Albumin Globulin Albumin/Globulin Ratio Blood Type Antibody Screen Crossmatch See Detail Treatment and Re-Evaluation Vital Sign Attestation:: Vital signs were reviewed prior to admission. They are stable. Discharge Plan Dx/Rx/DC Orders Clinical Impression: Anemia Disposition Disposition: Acute Care Hospital [facility] Discharge Date/Time: 02/07/21 18:00
[2021-02-07 15:35] LABS: Absolute Lymphocyte Count 1.29 X10^3/uL (0.83-4.51); Absolute Neutrophil Count 3.7 X10^3/uL (2.0-7.7); Basophil# 0.04 X10^3/uL; Basophil% 0.7 % (0-1); Eosinophil# 0.01 X10^3/uL; Eosinophils% 0.2 % (0-5); Hematocrit 21.3 % (37-47); Hemoglobin 6.2 g/dL (12.0-15.0); Lymphocyte # 1.29 X10^3/ul (0.83-4.51); Lymphocyte % 21.6 % (19-41); Mean Corp Hgb Conc 29.1 g/dL (32-36); Mean Corpuscular Hgb 24.6 pg (27.0-32.0); Mean Corpuscular Volume 84.5 fL (81-99); Monocyte# 0.92 X10^3/uL; Monocyte% 15.4 % (0-10); NRBC Flagged by Analyzer 0 % (0-5); Neutrophil # 3.67 X10^3/uL (2.7-7.7); Neutrophil % 61.6 % (47-70); POSITIVE MORPHOLOGY YES; Platelet Count 458 K/mm3 (150-450); RBC Distribution Width CV 21.2 % (11.6-14.6); RBC Distribution Width SD 65.1 fl (35.1-43.9); Red Blood Count 2.52 M/mm3 (4.2-5.4)
[2021-02-07 15:39] LABS: International Normalized Ratio 1.3; Prothrombin Time (Protime)PT. 15.3 SECONDS (11.7-14.9)
[2021-02-07 15:40] LABS: Partial Thromboplast Time 34.4 Seconds (24.1-36.2)
[2021-02-07 15:47] LABS: ALB/GLOB Ratio 0.3 RATIO (0.9-2.4); AST(SGOT) 17 U/L (15-37); Alanine Aminotransfer ALT/SGPT 12 U/L (13-56); Albumin, Serum 1.7 g/dL (3.2-5.0); Alkaline Phosphatase 567 U/L (45-117); Anion Gap 8 (5-15); BUN 27 mg/dL (7-18); BUN/Creat Ratio 22.3 RATIO (10-20); Calcium,Total 8.3 mg/dL (8.5-10.1); Chloride 99 mmol/L (98-107); Creatinine, Serum 1.21 mg/dL (0.55-1.02); EST Glomerular Filtration Rate 48 mL/min (>60); Est Glom Filt Rate - Afr Amer 59 mL/min (>60); Glucose 203 mg/dL (74-106); Potassium 3.6 mmol/L (3.5-5.1); Protein, Total 6.7 g/dL (6.4-8.2); Sodium Level 134 mmol/L (136-145)
[2021-02-07 16:11] LABS: Differential Indicated SCAN CRITERIA MET
[2021-02-07 16:13] LABS: Anisocytosis 2+; Hypochromasia 1+; Microcytosis 1+; Ovalocyte RARE; Pathologist Review May foll; Platelet Estimate SLT INC (ADEQ); Polychromasia RARE
--- NOTE | 2021-02-07 17:21 | NURSING ---
DR ZACK VENTURA
--- NOTE | 2021-02-07 17:26 | PCM.HP.STD ---
HPI - General General Date of Admission: 02/07/21 Date of Service: 02/07/21 Chief Complaint: Abnormal labs HPI Narrative MANN ZIMMERMAN, is a 60 with multiple comorbidities including diabetes mellitus type 2, peripheral vascular disease coronary artery disease who underwent right AKA 2 weeks prior to her admission at [facility]. Patient was discharged to local extended care facility. She was found to be anemic based on the lab work that was drawn. Subsequently sent to the ED. Decision was made to admit patient for further evaluation and management. [facility] Medical History Amputation of toe of right foot HTN (hypertension) Hyperlipidemia Myocardial infarct Neuropathy Type 2 diabetes mellitus Home Medications Spironolactone 25 mg PO DAILY 12/16/18 [History Last Taken Unknown] aspirin 81 mg PO DAILY 12/16/18 [History Last Taken Unknown] atorvastatin 40 mg PO DAILY 12/16/18 [History Last Taken Unknown] bupropion HCl 300 mg PO DAILY 12/16/18 [History Last Taken Unknown] clopidogrel 75 mg PO DAILY 12/16/18 [History Last Taken Unknown] gabapentin 100 mg PO BID 12/16/18 [History Last Taken Unknown] metformin 1,000 mg PO BID 12/16/18 [History Last Taken Unknown] bumetanide 2 mg tablet 2 mg PO BID 10/31/19 [History Last Taken Unknown] metoprolol succinate 25 mg tablet,extended release 24 hr 25 mg PO DAILY 10/31/19 [History Last Taken Unknown] insulin lispro 100 unit/mL subcutaneous pen 11 unit SC TID #15 ml 09/26/20 [Rx Last Taken Unknown] insulin glargine 100 unit/mL (3 mL) subcutaneous pen 33 unit SC QPM #15 ml 09/27/20 [Rx Last Taken Unknown] Allergy/AdvReac Type Severity Reaction Status Date / Time shellfish derived Allergy Anaphylaxis Verified 02/07/21 13:21 Family History Other CAD (coronary artery disease) Cancer Diabetes Heart disease Hypertension Uterine cancer Social History Smoking Status: Former smoker substance use type: does not use ROS ROS Narrative GENERAL: denies fever, chills, night sweats, HEENT: denies headache, sinus congestion, RESPIRATORY: denies cough, sputum production, CARDIAC: denies chest pain, palpitations, orthopnea GASTROINTESTINAL: denies abdominal pain, nausea, GENITOURINARY: denies dysuria, urgency, frequency, EXTREMITY: denies swelling MUSCULOSKELETAL: denies current joint pain or tenderness NEUROLOGIC: denies focal numbness, weakness, tingling HEMATOLOGIC: denies easy bruising and/or hemorrhage INTEGUMENT: denies rashes PSYCHIATRIC: denies suicidal or homicidal ideation Vital Signs Vital Signs Vital Signs: 02/07/21 13:15 02/07/21 13:22 02/07/21 16:59 Temperature 97.2 F L Temperature Source Temporal Pulse Rate 75 72 Respiratory Rate 16 16 Respiratory Pattern Normal Blood Pressure 129/63 H 137/75 H Blood Pressure Mean 85 95 Pulse Ox 93 96 Oxygen Delivery Method Room Air Room Air Weight Weight: 71.9 kg Body Mass Index (BMI) 24.0 Physical Exam Narrative GENERAL: cooperative HEENT: Atraumatic; EYES; Anicteric, Normal Conjunctiva NECK; supple, normal thyroid, RESPIRATORY: Diminished to auscultation CARDIOVASCULAR: Regular S1 S2, GI: soft, normoactive bowel sounds, : No Renal angle tenderness; EXTREMITIES: Right AKA stump incision CDI MUSCULOSKELETAL: no muscle waisting NEURO: Awake; no lateralizing signs. SKIN: No Rash PSYCH; Flat affect Results Lab / Micro Data Result Diagrams: 02/07/21 13:35 02/07/21 13:35 Labs: Laboratory Results - last 24 hr 02/07/21 13:35: WBC 6.0, RBC 2.52 L, Hgb 6.2 L, Hct 21.3 L, MCV 84.5, MCH 24.6 L, MCHC 29.1 L, RDW Std Deviation 65.1 H, RDW Coeff of New 21.2 H, Plt Count 458 H, MPV 9.0, Immature Gran % (Auto) 0.500, Neut % (Auto) 61.6, Lymph % (Auto) 21.6, Elliott % (Auto) 15.4 H, Eos % (Auto) 0.2, Baso % (Auto) 0.7, Absolute Neuts (auto) 3.7, Absolute Lymphs (auto) 1.29, Nucleated RBC % 0, Diff Path Review May jono, Platelet Estimate SLT INC, Polychromasia RARE, Hypochromasia 1+, Anisocytosis 2+, Microcytosis 1+, Ovalocytes RARE 02/07/21 13:35: PT 15.3 H, INR 1.3, APTT 34.4 02/07/21 13:35: Sodium 134 L, Potassium 3.6, Chloride 99, Carbon Dioxide 27.0, Anion Gap 8, BUN 27 H, Creatinine 1.21 H, Estim Creat Clear Calc 50.50, Est GFR (MDRD) Af Amer 59 L, Est GFR (MDRD) Non-Af 48 L, BUN/Creatinine Ratio 22.3 H, Glucose 203 H, Calcium 8.3 L, Total Bilirubin 0.80, AST 17, ALT 12 L, Alkaline Phosphatase 567 H, Total Protein 6.7, Albumin 1.7 L, Globulin 5.0 H, Albumin/Globulin Ratio 0.3 L 02/07/21 13:35: Blood Type O POSITIVE, Antibody Screen NEGATIVE Assessment & Plan Assessment/Plan (1) S/P AKA (above knee amputation) unilateral: (2) Anemia: PLAN: Patient is a 60-year-old lady with recent right AKA sent to the ED with abnormal labs 1. Severe anemia ?Do suspect anemia of chronic disorder worsened by patient recent surgery and the fact that patient is on dual antiplatelet therapy. Patient report having undergone colonoscopy 4 years prior to her admission with no abnormal findings. Patient has been admitted to regular nursing floor did request for iron studies as well as B12 and ferritin and reticulocyte count in addition to stool guaiac. An order was given for patient to be transfused 1 unit PRBC 2. Status post right KA ?On account of diabetic foot infection. Patient incision clean dry and intact 3. Coronary artery disease ?Status post CABG with subsequent stent placement. Patient is on dual antiplatelet therapy 4. Peripheral vascular disease ?With lower extremity stents 5. Diabetes mellitus type II -patient's oral hypoglycemics held. Placed on long acting insulin, Accu-Cheks a.c. and at bedtime and covered with sliding scale insulin 6. Diabetic polyneuropathy ?Patient is on gabapentin 7. DVT prophylaxis ?Held off initiating low molecular weight heparin in view of patient significant anemia Advance planning; did discuss with the patient and family regarding advanced directives as well as CODE STATUS. Did explain the various scenarios involved ( FULL CODE, DNR CCA, DNR CCA with no intubation, and DNR CC and what each meant) patient elected to be full code with CPR and intubation if needed. Order was placed. Time spent on discussion 18 minutes. Charges/Coding Visit Charges OBSV E&M: 04336 Initial observation care L3 Procedures Hospitalists Procedures: 90301 Advncd Care Plan 30 Min
--- NOTE | 2021-02-07 17:27 | ED.RN ---
PICC LINE FLUSHES, BUT NO BLOOD RETURN. PERIPHERAL IV USED FOR LAB DRAW AN INFUSIONS.
--- NOTE | 2021-02-07 17:43 | NURSING ---
MED SURG OBS KITTOE ANEMIA
[2021-02-07 17:59] LABS: Platelet Count 458 K/mm3 (150-450); RET-HE 22.2 pg (30-35); Reticulocyte Count 5.79 % (0.5-1.5)
[2021-02-07 18:15] LABS: Ferritin 97 ng/mL (8-252); Iron 33 ug/dL (50-170); Iron Binding Capacity,Total 318 ug/dL (250-450); PERCENT IRON SATURATION 10.4 % (15.0-55.0)
--- NOTE | 2021-02-07 18:53 | WOUNDNOTE ---
wound photo: right foot
--- NOTE | 2021-02-07 18:53 | WOUNDNOTE ---
wound photo: right knee
--- NOTE | 2021-02-07 18:54 | WOUNDNOTE ---
wound photo: right de [place]
--- NOTE | 2021-02-07 18:54 | WOUNDNOTE ---
wound photo: right great toe
--- NOTE | 2021-02-07 18:55 | WOUNDNOTE ---
wound photo: right hip
--- NOTE | 2021-02-07 18:56 | WOUNDNOTE ---
wound photo: right buttock
--- NOTE | 2021-02-07 18:56 | WOUNDNOTE ---
wound photo: bucky cleft
--- NOTE | 2021-02-07 18:57 | WOUNDNOTE ---
wound photo: left leg
--- NOTE | 2021-02-07 18:57 | WOUNDNOTE ---
wound photo: left arm
--- NOTE | 2021-02-07 18:58 | WOUNDNOTE ---
wound photo: right arm
--- NOTE | 2021-02-07 18:59 | ONC.PHONE ---
wound photo: right upper arm
[2021-02-07] MEDS: Menthol/Lanolin/Calamine/Znox 113 GM Tube 1 APPLIC TOPICAL (21:23)
[2021-02-07] MEDS: Atorvastatin Calcium 40 MG Tablet PO ×2 (21:23)
[2021-02-07] MEDS: hydrALAZINE 25 MG Tablet PO (21:23)
[2021-02-07] MEDS: hydrOXYzine PAM 25 MG Capsule PO (21:23)
[2021-02-07] MEDS: Pantoprazole Sodium 40 MG Tablet PO (21:23)
[2021-02-07] MEDS: Gabapentin 600 MG Tablet PO (21:24)
[2021-02-07] MEDS: Potassium Chloride Oral Tablet 20 MEQ PO (21:24)
[2021-02-07] MEDS: Insulin Lispro 100 UNIT/ML INSULN.PEN SC (21:43)
--- NOTE | 2021-02-07 23:25 | PCS.PANDOC ---
PANDEMIC DOCUMENTATION INITIATED: Date: 10/22/2020 Time: 190
[2021-02-07 23:41] LABS: Bedside Glucose 184 mg/dL (70-110)
[2021-02-08] VITALS (9 sets, daily range): BP systolic 115–149; BP diastolic 54–70; PULSE 71–76; RESP 18–20; TEMP 36.5–37.1; O2SAT 94–98
[2021-02-08 06:20] LABS: Absolute Lymphocyte Count 1.18 X10^3/uL (0.83-4.51); Absolute Neutrophil Count 4.2 X10^3/uL (2.0-7.7); Basophil# 0.03 X10^3/uL; Basophil% 0.5 % (0-1); Eosinophil# 0.01 X10^3/uL; Eosinophils% 0.2 % (0-5); Hemoglobin 8.2 g/dL (12.0-15.0); Lymphocyte # 1.18 X10^3/ul (0.83-4.51); Lymphocyte % 18.3 % (19-41); Mean Corp Hgb Conc 30.4 g/dL (32-36); Mean Corpuscular Hgb 25.8 pg (27.0-32.0); Mean Corpuscular Volume 84.9 fL (81-99); Mean Platelet Vol. 8.9 fl (6.2-12.0); Monocyte# 1.02 X10^3/uL; Monocyte% 15.8 % (0-10); NRBC Flagged by Analyzer 0 % (0-5); Neutrophil # 4.15 X10^3/uL (2.7-7.7); Neutrophil % 64.4 % (47-70); Platelet Count 462 K/mm3 (150-450); RBC Distribution Width CV 19.6 % (11.6-14.6); RBC Distribution Width SD 61.1 fl (35.1-43.9); Red Blood Count 3.18 M/mm3 (4.2-5.4); White Blood Count 6.4 K/mm3 (4.4-11.0)
[2021-02-08 06:32] LABS: Anion Gap 8 (5-15); BUN 23 mg/dL (7-18); BUN/Creat Ratio 22.5 RATIO (10-20); Calcium,Total 8.4 mg/dL (8.5-10.1); Chloride 105 mmol/L (98-107); Creatinine, Serum 1.02 mg/dL (0.55-1.02); EST Glomerular Filtration Rate 59 mL/min (>60); Est Glom Filt Rate - Afr Amer 71 mL/min (>60); Estimated Creatinine Clearance 59.91 ml/min; Glucose 145 mg/dL (74-106); Magnesium 1.8 mg/dL (1.6-2.6); Potassium 3.7 mmol/L (3.5-5.1); Sodium Level 139 mmol/L (136-145)
[2021-02-08] MEDS: hydrALAZINE 25 MG Tablet PO (06:41)
[2021-02-08] MEDS: hydrOXYzine PAM 25 MG Capsule PO ×2 (06:41→14:18)
[2021-02-08] MEDS: Gabapentin 600 MG Tablet PO ×2 (06:41→14:18)
--- NOTE | 2021-02-08 07:20 | PN.HOSP_ITS ---
Subjective Subjective Patient hemoglobin did come up to 8.2 after 1 unit PRBC transfusion. Iron studies did demonstrate iron deficiency anemia. An order was given for patient to receive 200 mg of parenteral iron. Did discuss with patient on the need to complete her work-up by colonoscopy and EGD by GI as outpatient once she is medically stable from her recent right AKA surgery Objective Data Objective Data Vital Signs: Vital Signs Temp Pulse Resp BP Pulse Ox 97.7 F L 72 18 144/68 H 97 02/08/21 02:47 02/08/21 06:41 02/08/21 02:47 02/08/21 06:41 02/08/21 02:47 Oxygen Flow Rate (L/min) 2 Oxygen Delivery Method Nasal Cannula Weight: 71.9 kg Body Mass Index (BMI) 24.0 Intake & Output: Intake and Output for Last 24 Hours 02/06/21 02/07/21 02/08/21 23:59 23:59 23:59 Intake Total 0 / 0 800 / 800 Balance 0 / 0 800 / 800 Lab / Micro Data Result Diagrams: 02/08/21 05:06 02/08/21 05:06 Labs: Laboratory Results - last 24 hr 02/07/21 13:35: WBC 6.0, RBC 2.52 L, Hgb 6.2 L, Hct 21.3 L, MCV 84.5, MCH 24.6 L , MCHC 29.1 L, RDW Std Deviation 65.1 H, RDW Coeff of New 21.2 H, Plt Count 458 H, MPV 9.0, Immature Gran % (Auto) 0.500, Neut % (Auto) 61.6, Lymph % (Auto) 21.6, Hamlin % (Auto) 15.4 H, Eos % (Auto) 0.2, Baso % (Auto) 0.7, Absolute Neuts (auto) 3.7, Absolute Lymphs (auto) 1.29, Nucleated RBC % 0, Diff Path Review May foll, Platelet Estimate SLT INC, Polychromasia RARE, Hypochromasia 1+, Anisocytosis 2+, Microcytosis 1+, Ovalocytes RARE 02/07/21 13:35: PT 15.3 H, INR 1.3, APTT 34.4 02/07/21 13:35: Sodium 134 L, Potassium 3.6, Chloride 99, Carbon Dioxide 27.0, Anion Gap 8, BUN 27 H, Creatinine 1.21 H, Estim Creat Clear Calc 50.50, Est GFR (MDRD) Af Amer 59 L, Est GFR (MDRD) Non-Af 48 L, BUN/Creatinine Ratio 22.3 H, Glucose 203 H, Calcium 8.3 L, Total Bilirubin 0.80, AST 17, ALT 12 L, Alkaline Phosphatase 567 H, Total Protein 6.7, Albumin 1.7 L, Globulin 5.0 H, Albumin/Globulin Ratio 0.3 L 02/07/21 13:35: Blood Type O POSITIVE, Antibody Screen NEGATIVE 02/07/21 13:35: Retic Count 5.79 H, Immature Retic Fraction 24.80 H, Retic Hgb Equivalent 22.2 L 02/07/21 13:35: Iron 33 L, TIBC 318, Iron Saturation 10.4 L, Ferritin 97 02/07/21 13:35: Crossmatch See Detail 02/07/21 21:18: POC Glucose 184 H 02/08/21 05:06: WBC 6.4, RBC 3.18 L, Hgb 8.2 L, Hct 27.0 L, MCV 84.9, MCH 25.8 L , MCHC 30.4 L, RDW Std Deviation 61.1 H, RDW Coeff of New 19.6 H, Plt Count 462 H, MPV 8.9, Immature Gran % (Auto) 0.800, Neut % (Auto) 64.4, Lymph % (Auto) 18.3 L, Hamlin % (Auto) 15.8 H, Eos % (Auto) 0.2, Baso % (Auto) 0.5, Absolute Neuts (auto) 4.2, Absolute Lymphs (auto) 1.18, Nucleated RBC % 0 02/08/21 05:06: Sodium 139, Potassium 3.7, Chloride 105, Carbon Dioxide 26.0, Anion Gap 8, BUN 23 H, Creatinine 1.02, Estim Creat Clear Calc 59.91, Est GFR (MDRD) Af Amer 71, Est GFR (MDRD) Non-Af 59 L, BUN/Creatinine Ratio 22.5 H, Glucose 145 H, Calcium 8.4 L, Magnesium 1.8 Physical Exam Narrative GENERAL: cooperative HEENT: Atraumatic; EYES; Anicteric, Normal Conjunctiva NECK; supple, normal thyroid, RESPIRATORY: Diminished to auscultation CARDIOVASCULAR: Regular S1 S2, GI: soft, normoactive bowel sounds, : No Renal angle tenderness; EXTREMITIES: Right AKA stump incision CDI MUSCULOSKELETAL: no muscle waisting NEURO: Awake; no lateralizing signs. SKIN: No Rash PSYCH; Flat affect Assessment & Plan Assessment/Plan (1) S/P AKA (above knee amputation) unilateral: (2) Anemia: PLAN: Patient is a 60-year-old lady with recent right AKA sent to the ED with abnormal labs 1. Severe anemia ?Do suspect anemia of chronic disorder worsened by patient recent surgery and the fact that patient is on dual antiplatelet therapy. Patient report having undergone colonoscopy 4 years prior to her admission with no abnormal findings. Patient has been admitted to regular nursing floor did request for iron studies as well as B12 and ferritin and reticulocyte count in addition to stool guaiac. An order was given for patient to be transfused 1 unit PRBC -02/08/2021;Patient hemoglobin did come up to 8.2 after 1 unit PRBC transfusion. Iron studies did demonstrate iron deficiency anemia. An order was given for patient to receive 200 mg of parenteral iron. Did discuss with patient on the need to complete her work-up by colonoscopy and EGD by GI as outpatient once she is medically stable from her recent right AKA surgery 2. Status post right KA ?On account of diabetic foot infection. Patient incision clean dry and intact 3. Coronary artery disease ?Status post CABG with subsequent stent placement. Patient is on dual antiplatelet therapy 4. Peripheral vascular disease ?With lower extremity stents 5. Diabetes mellitus type II -patient's oral hypoglycemics held. Placed on long acting insulin, Accu-Cheks a.c. and at bedtime and covered with sliding scale insulin 6. Diabetic polyneuropathy ?Patient is on gabapentin 7. DVT prophylaxis ?Held off initiating low molecular weight heparin in view of patient significant anemia Charges/Coding Visit Charges OBSV E&M: 96918 Subsequent observation care L3
[2021-02-08 08:20] LABS: Bedside Glucose 134 mg/dL (70-110)
--- NOTE | 2021-02-08 09:19 | CASEMGMT ---
Addendum entered by Marge Arellano 02/08/21 09:50: SW met with pt. SW introduced self and role at [facility]. Pt confirms she came from [place] and will be returning there at discharge. Original Note: Social Work Note SW reviewed chart. Pt is listed as being from [place]. SHERRIE placed a call to Koki at [place] and left message regarding pt as pt is medically cleared for discharge back to [facility] today. SHERRIE received call from [facility] at [place], pt was skilled and is able to return skilled. [facility] states they do not need PT/OT or COVID test for pt. SHERRIE faxed updated clinicals to [facility]. Plan: Return to [place] skilled when medically cleared Marge Arellano SLEEPER CUTTER, JAVA PROGRAMMER
[2021-02-08] MEDS: Insulin Lispro 100 UNIT/ML INSULN.PEN SC ×3 (09:29→11:52)
[2021-02-08] MEDS: Multivitamins,Ther W-Minerals Tablet 1 TABLET PO (09:33)
[2021-02-08] MEDS: Menthol/Lanolin/Calamine/Znox 113 GM Tube 1 APPLIC TOPICAL (09:33)
[2021-02-08] MEDS: Ferrous Sulfate 325 MG Tablet PO (09:33)
[2021-02-08] MEDS: Aspirin 81 MG TAB.CHEW PO (09:33)
[2021-02-08] MEDS: Potassium Chloride Oral Tablet 20 MEQ PO (09:34)
[2021-02-08] MEDS: Loratadine 10 MG Tablet PO (09:34)
[2021-02-08] MEDS: FLUoxetine 20 MG Capsule PO (09:35)
[2021-02-08] MEDS: Pantoprazole Sodium 40 MG Tablet PO (09:35)
[2021-02-08] MEDS: Clopidogrel Bisulfate 75 MG Tablet PO (09:35)
[2021-02-08] MEDS: Furosemide 20 MG Tablet 60 MG PO (09:35)
[2021-02-08] MEDS: Metoprolol(XL)Succ 25 MG Tablet PO (09:36)
[2021-02-08] MEDS: Ascorbic Acid 500 MG Tablet PO (09:36)
--- NOTE | 2021-02-08 09:49 | PCM.DC.SUM ---
Providers Date of Admission: 02/07/21 Primary Care Physician: GRACIELA YarbroughC Consultations 02/08/21 06:36 Consult: Onc/Wound/chiropractic assistant Routine Comment: Reason for Consult:: numerous wounds Reason For Visit: ANEMIA Diagnosis Discharge Diagnosis (1) S/P AKA (above knee amputation) unilateral: Status: Acute Code(s): Z89.619 - Acquired absence of unspecified leg above knee (2) Anemia: Status: Acute Code(s): D64.9 - Anemia, unspecified Medications at Discharge Home Medications aspirin 81 mg PO DAILY 12/16/18 atorvastatin 40 mg PO DAILY 12/16/18 clopidogrel 75 mg PO DAILY 12/16/18 metoprolol succinate 25 mg tablet,extended release 24 hr 25 mg PO DAILY 10/31/19 Humulin R Regular U-100 Insuln 5 unit SUBCUT TIDCM 02/07/21 Lantus Solostar U-100 Insulin 13 unit SC DAILY 02/07/21 ascorbic acid (vitamin C) 500 mg PO DAILY 02/07/21 famotidine 20 mg PO BID 02/07/21 ferrous sulfate 325 mg PO DAILY 02/07/21 fluoxetine 20 mg PO DAILY 02/07/21 furosemide 60 mg PO DAILY 02/07/21 gabapentin 600 mg PO TID 02/07/21 hydralazine 25 mg PO TID 02/07/21 hydroxyzine HCl 25 mg PO TID 02/07/21 loratadine 10 mg PO DAILY 02/07/21 melatonin 3 mg PO QHS 02/07/21 multivitamin with minerals 1 tab PO DAILY 02/07/21 potassium chloride [Klor-Con M20] 20 meq PO BID 02/07/21 Hospital Course Summary of Care Provided Minutes Spent on Discharge: 35 Hospital Course: Patient is a 60-year-old lady with recent right AKA sent to the ED with abnormal labs 1. Severe anemia ?Do suspect anemia of chronic disorder worsened by patient recent surgery and the fact that patient is on dual antiplatelet therapy. Patient report having undergone colonoscopy 4 years prior to her admission with no abnormal findings. Patient has been admitted to regular nursing floor did request for iron studies as well as B12 and ferritin and reticulocyte count in addition to stool guaiac. An order was given for patient to be transfused 1 unit PRBC -02/08/2021;Patient hemoglobin did come up to 8.2 after 1 unit PRBC transfusion. Iron studies did demonstrate iron deficiency anemia. An order was given for patient to receive 200 mg of parenteral iron. Did discuss with patient on the need to complete her work-up by colonoscopy and EGD by GI as outpatient once she is medically stable from her recent right AKA surgery 2. Status post right KA ?On account of diabetic foot infection. Patient incision clean dry and intact 3. Coronary artery disease ?Status post CABG with subsequent stent placement. Patient is on dual antiplatelet therapy 4. Peripheral vascular disease ?With lower extremity stents 5. Diabetes mellitus type II -patient's oral hypoglycemics held. Placed on long acting insulin, Accu-Cheks a.c. and at bedtime and covered with sliding scale insulin 6. Diabetic polyneuropathy ?Patient is on gabapentin 7. DVT prophylaxis ?Held off initiating low molecular weight heparin in view of patient significant anemia Physical Exam Narrative GENERAL: cooperative HEENT: Atraumatic; EYES; Anicteric, Normal Conjunctiva NECK; supple, normal thyroid, RESPIRATORY: Diminished to auscultation CARDIOVASCULAR: Regular S1 S2, GI: soft, normoactive bowel sounds, : No Renal angle tenderness; EXTREMITIES: Right AKA stump incision CDI MUSCULOSKELETAL: no muscle waisting NEURO: Awake; no lateralizing signs. SKIN: No Rash PSYCH; Flat affect Weight / BMI Weight Weight: 71.9 kg Body Mass Index (BMI) 24.0 ABG / Lab / Microbiology Data Result Diagrams: 02/08/21 05:06 02/08/21 05:06 Laboratory: Laboratory Results - last 24 hr 02/07/21 13:35: WBC 6.0, RBC 2.52 L, Hgb 6.2 L, Hct 21.3 L, MCV 84.5, MCH 24.6 L, MCHC 29.1 L, RDW Std Deviation 65.1 H, RDW Coeff of New 21.2 H, Plt Count 458 H, MPV 9.0, Immature Gran % (Auto) 0.500, Neut % (Auto) 61.6, Lymph % (Auto) 21.6, [place] % (Auto) 15.4 H, Eos % (Auto) 0.2, Baso % (Auto) 0.7, Absolute Neuts (auto) 3.7, Absolute Lymphs (auto) 1.29, Nucleated RBC % 0, Diff Path Review May foll, Platelet Estimate SLT INC, Polychromasia RARE, Hypochromasia 1+, Anisocytosis 2+, Microcytosis 1+, Ovalocytes RARE 02/07/21 13:35: PT 15.3 H, INR 1.3, APTT 34.4 02/07/21 13:35: Sodium 134 L, Potassium 3.6, Chloride 99, Carbon Dioxide 27.0, Anion Gap 8, BUN 27 H, Creatinine 1.21 H, Estim Creat Clear Calc 50.50, Est GFR (MDRD) Af Amer 59 L, Est GFR (MDRD) Non-Af 48 L, BUN/Creatinine Ratio 22.3 H, Glucose 203 H, Calcium 8.3 L, Total Bilirubin 0.80, AST 17, ALT 12 L, Alkaline Phosphatase 567 H, Total Protein 6.7, Albumin 1.7 L, Globulin 5.0 H, Albumin/Globulin Ratio 0.3 L 02/07/21 13:35: Blood Type O POSITIVE, Antibody Screen NEGATIVE 02/07/21 13:35: Retic Count 5.79 H, Immature Retic Fraction 24.80 H, Retic Hgb Equivalent 22.2 L 02/07/21 13:35: Iron 33 L, TIBC 318, Iron Saturation 10.4 L, Ferritin 97 02/07/21 13:35: Crossmatch See Detail 02/07/21 21:18: POC Glucose 184 H 02/08/21 05:06: WBC 6.4, RBC 3.18 L, Hgb 8.2 L, Hct 27.0 L, MCV 84.9, MCH 25.8 L, MCHC 30.4 L, RDW Std Deviation 61.1 H, RDW Coeff of New 19.6 H, Plt Count 462 H, MPV 8.9, Immature Gran % (Auto) 0.800, Neut % (Auto) 64.4, Lymph % (Auto) 18.3 L, [place] % (Auto) 15.8 H, Eos % (Auto) 0.2, Baso % (Auto) 0.5, Absolute Neuts (auto) 4.2, Absolute Lymphs (auto) 1.18, Nucleated RBC % 0 02/08/21 05:06: Sodium 139, Potassium 3.7, Chloride 105, Carbon Dioxide 26.0, Anion Gap 8, BUN 23 H, Creatinine 1.02, Estim Creat Clear Calc 59.91, Est GFR (MDRD) Af Amer 71, Est GFR (MDRD) Non-Af 59 L, BUN/Creatinine Ratio 22.5 H, Glucose 145 H, Calcium 8.4 L, Magnesium 1.8 02/08/21 08:00: POC Glucose 134 H D/C Instructions Discharge Diet: 1800 Calorie Control Diet Discharge Activity: Return to Normal Activity Call your doctor if you observe: Fever of 101 or Higher, Shortness of breath, Fainting spells and Chest pain Meaningful Use Info Meaningful Use Diagnoses (Choose all that apply): None applicable Discharge Plan Admission Admit Date/Time: 02/07/21 17:23 Attending Provider: Lorenzo Lowery Primary Care Provider: Milena Blackburn NP Discharge Orders/Prescriptions Prescriptions: Continued metoprolol succinate 25 mg tablet extended release 24 hr 25 mg PO DAILY RF: 0 atorvastatin 40 MG tablet 40 mg PO DAILY RF: 0 clopidogrel 75 MG tablet 75 mg PO DAILY RF: 0 aspirin 81 MG tablet,chewable 81 mg PO DAILY RF: 0 gabapentin 600 mg tablet 600 mg PO TID RF: 0 hydralazine 25 mg Tablet 25 mg PO TID RF: 0 melatonin 3 mg Tablet 3 mg PO QHS RF: 0 potassium chloride [Klor-Con M20] 20 mEq Tablet,Er Particles/Crystals 20 meq PO BID RF: 0 famotidine 20 mg Tablet 20 mg PO BID RF: 0 ascorbic acid (vitamin C) 500 mg Tablet 500 mg PO DAILY RF: 0 ferrous sulfate 325 mg (65 mg iron) Tablet 325 mg PO DAILY RF: 0 fluoxetine 20 mg Tablet 20 mg PO DAILY RF: 0 Humulin R Regular U-100 Insuln 100 unit/mL Solution 5 unit SUBCUT TIDCM RF: 0 hydroxyzine HCl 25 mg Tablet 25 mg PO TID RF: 0 furosemide 20 mg Tablet 60 mg PO DAILY RF: 0 multivitamin with minerals Tablet 1 tab PO DAILY RF: 0 loratadine 10 mg Tablet 10 mg PO DAILY RF: 0 Lantus Solostar U-100 Insulin 100 unit/mL (3 mL) insulin pen 13 unit SC DAILY RF: 0 Referrals / Follow Up: Milena Blackburn EXHIBIT ARTIST, EXHIBIT ARTIST-C [Primary Care Provider] - In 1 Week Disposition Disposition (needs filled in before D/C Order can be placed): [facility] Charges/Coding Visit Charges Inpatient E&M: 23099 Disch Hosp
--- NOTE | 2021-02-08 09:55 | PCM.TXEXTCAR ---
Diet 02/07/21 18:59 Diet: Cardiac: Calorie-Controlled Is pt able to select menu?: Yes How many daily calories?: 1800 calorie Wound(s) bilateral arms: Wound Type: scattered dry scabbed from picking Dressing Change: Adaptic right buttock: Wound Type: Pressure Injury Dressing Change: Mepilex cleft: Wound Type: Pressure Injury right midfoot: Wound Type: Neuropathic/Diabetic Foot Ulcer Dressing Change: Dry Sterile Dressing right heel: Wound Type: Neuropathic/Diabetic Foot Ulcer Dressing Change: AntiMicrobial (Aquacel AG, etc) right knee: Wound Type: Abrasion Dressing Change: Dry Sterile Dressing right de [place]: Wound Type: Abrasion Dressing Change: Adaptic right great toe: Wound Type: Abrasion Dressing Change: AntiMicrobial (Aquacel AG, etc) Therapies Physical Therapy: Eval and Treat Occupational Therapy: Eval and Treat Problem/Diagnosis (1) S/P AKA (above knee amputation) unilateral: Status: Acute (2) Anemia: Status: Acute Allergies/Procedures Done in Hospital Allergies shellfish derived Allergy (Verified 02/07/21 13:21) Anaphylaxis Type of Care/Length of Stay Estimated LOS: Convalescent Care Less Than 30 days Type of Care Needed: Skilled Rehab Potential: Good Prognosis: Good Additional Orders/Day of Discharge Day of Discharge: 02/08/21 Discharge Plan Admission Admit Date/Time: 02/07/21 17:23 Attending Provider: Lorenzo Lowery Primary Care Provider: Milena Blackburn REAL ESTATE SALES SUPERVISOR Discharge Orders/Prescriptions Prescriptions: Continued metoprolol succinate 25 mg tablet extended release 24 hr 25 mg PO DAILY RF: 0 atorvastatin 40 MG tablet 40 mg PO DAILY RF: 0 clopidogrel 75 MG tablet 75 mg PO DAILY RF: 0 aspirin 81 MG tablet,chewable 81 mg PO DAILY RF: 0 gabapentin 600 mg tablet 600 mg PO TID RF: 0 hydralazine 25 mg Tablet 25 mg PO TID RF: 0 melatonin 3 mg Tablet 3 mg PO QHS RF: 0 potassium chloride [Klor-Con M20] 20 mEq Tablet,Er Particles/Crystals 20 meq PO BID RF: 0 famotidine 20 mg Tablet 20 mg PO BID RF: 0 ascorbic acid (vitamin C) 500 mg Tablet 500 mg PO DAILY RF: 0 ferrous sulfate 325 mg (65 mg iron) Tablet 325 mg PO DAILY RF: 0 fluoxetine 20 mg Tablet 20 mg PO DAILY RF: 0 Humulin R Regular U-100 Insuln 100 unit/mL Solution 5 unit SUBCUT TIDCM RF: 0 hydroxyzine HCl 25 mg Tablet 25 mg PO TID RF: 0 furosemide 20 mg Tablet 60 mg PO DAILY RF: 0 multivitamin with minerals Tablet 1 tab PO DAILY RF: 0 loratadine 10 mg Tablet 10 mg PO DAILY RF: 0 Lantus Solostar U-100 Insulin 100 unit/mL (3 mL) insulin pen 13 unit SC DAILY RF: 0 Referrals / Follow Up: Milena Blackburn NP, REAL ESTATE SALES SUPERVISOR-C [Primary Care Provider] - In 1 Week Disposition Disposition (needs filled in before D/C Order can be placed): [facility]
[2021-02-08 11:20] LABS: Vitamin B12 643 pg/mL (211-911)
[2021-02-08] MEDS: Sodium Ferric Gluconat 250 MG in 0.9% Normal Saline 250 ML 135 MG IV (11:40)
[2021-02-08] MEDS: 0.9% Saline Lock 10 ML Syringe IV (11:52)
[2021-02-08 12:25] LABS: Bedside Glucose 207 mg/dL (70-110)
--- NOTE | 2021-02-08 12:56 | CASEMGMT ---
Social Work Note SW faxed completed discharge paperwork to [facility] including transfer to extended care facility, signed medication list, any scripts, COVID tool. Original in SNF folder and copy on pt's chart. Pt to transport via cot. SW accessed trip assist and arranged transportation via cot for 3:00pm. Transportation form completed and placed on SNF folder and copy on pt's chart. RN updated on transportation time. SW updated pt on transportation time. SHERRIE placed a call to Koki at [facility] and updated her on transportation time. Plan: Return to [facility] skilled with physician's transporting pt via cot at 3:00pm Marge MCGEE, BET TAKER
--- NOTE | 2021-02-08 14:31 | NURSING ---
report given to marek khan at [place]
--- NOTE | 2021-02-08 15:09 | NURSING ---
report given to transport.
== END 2021-02-08 15:18 | disposition skilled nursing facility (03) ==
LOC: ED 17:27 → MS3 18:05
PROVIDERS: Admitting Provider Internal Medicine; Emergency Provider Emergency Medicine; PCP Nurse Practitioner Family; Visit Provider Internal Medicine
DX: D50.9 Iron deficiency anemia, unspecified (principal); I25.10 Atherosclerotic heart disease of native coronary artery without angina pectoris; E11.51 Type 2 diabetes mellitus with diabetic peripheral angiopathy without gangrene; E11.42 Type 2 diabetes mellitus with diabetic polyneuropathy; E78.5 Hyperlipidemia, unspecified; I25.2 Old myocardial infarction; I10 Essential (primary) hypertension; Z79.899 Other long term (current) drug therapy; Z79.02 Long term (current) use of antithrombotics/antiplatelets; Z79.82 Long term (current) use of aspirin; Z79.4 Long term (current) use of insulin; Z87.891 Personal history of nicotine dependence; Z89.611 Acquired absence of right leg above knee; Z95.1 Presence of aortocoronary bypass graft; R10.13 Epigastric pain
CPT/HCPCS: 36415; 36430; 80048; 80053; 82607; 82728; 82962; 83540; 83550; 83735; 85025; 85045; 85610; 85730; 86850; 86900; 86901; 86920; 96365; 96366; 97802; 99218; 99285; J7030; J7050; P9016; A4216; G0378; J2916

== ENCOUNTER 2021-03-11 17:37 | Emergency (ER) | payer MEDICARE, MEDICAID, SELFPAY ==
[2021-03-11 17:38] VITALS: BP 163/87; PULSE 79; RESP 18; TEMP 37.3; O2SAT 91; BMI 29.5
--- NOTE | 2021-03-11 21:05 | RAD_ITS ---
STUDY: X-RAY CHEST REASON FOR EXAM: Female, 60 years old. Cough. TECHNIQUE: AP COMPARISON: None. FINDINGS: Patchy groundglass opacities in the mid and lower lungs bilaterally. No evidence of pneumothorax, pleural effusion or consolidation. Mild cardiomegaly. Sternotomy wires. Atherosclerosis thoracic aorta. No mediastinal widening. RAD/Chest 1 View (Portable) IMPRESSION: Patchy groundglass opacities in the mid and lower lungs bilaterally could be due to atypical pneumonia such as Covid or mild pulmonary edema or a combination. Electronically Signed: Nicholas Akers MD at 23:56 EST Tel , Service support ,
--- NOTE | 2021-03-11 23:52 | EDS_ITS ---
HPI History of Present Illness Chief Complaint: Abn Labs Narrative Narrative: Patient is a 60-year-old female with multiple medical problems who stays at a care home. She states she has been feeling normal at her baseline but they did lab work the other day and when it returned they were worried about an abnormal value and therefore sent the patient to the ER. The patient states she does not know what the value was and is only here because she was sent by the care home but otherwise has no complaints. [facility] Medical History Above knee amputation of left lower extremity Amputation of toe of right foot HTN (hypertension) Hyperlipidemia Myocardial infarct Neuropathy Type 2 diabetes mellitus Home Medications aspirin 81 mg PO DAILY 12/16/18 [History Last Taken 02/07/21] atorvastatin 40 mg PO DAILY 12/16/18 [History Last Taken 02/06/21] clopidogrel 75 mg PO DAILY 12/16/18 [History Last Taken 02/07/21] metoprolol succinate 25 mg tablet,extended release 24 hr 25 mg PO DAILY 10/31/19 [History Last Taken 02/07/21] Humulin R Regular U-100 Insuln 5 unit SUBCUT TIDCM 02/07/21 [History Last Taken 02/07/21] Lantus Solostar U-100 Insulin 13 unit SC DAILY 02/07/21 [History Last Taken 02/07/21] ascorbic acid (vitamin C) 500 mg PO DAILY 02/07/21 [History Last Taken 02/07/21] famotidine 20 mg PO BID 02/07/21 [History Last Taken 02/07/21] ferrous sulfate 325 mg PO DAILY 02/07/21 [History Last Taken 02/07/21] fluoxetine 20 mg PO DAILY 02/07/21 [History Last Taken 02/07/21] furosemide 60 mg PO DAILY 02/07/21 [History Last Taken 02/07/21] gabapentin 600 mg PO TID 02/07/21 [History Last Taken 02/07/21] hydralazine 25 mg PO TID 02/07/21 [History Last Taken 02/07/21] hydroxyzine HCl 25 mg PO TID 02/07/21 [History Last Taken 02/07/21] loratadine 10 mg PO DAILY 02/07/21 [History Last Taken 02/07/21] melatonin 3 mg PO QHS 02/07/21 [History Last Taken 02/06/21] multivitamin with minerals 1 tab PO DAILY 02/07/21 [History Last Taken 02/07/21] potassium chloride [Klor-Con M20] 20 meq PO BID 02/07/21 [History Last Taken 02/07/21] Allergy/AdvReac Type Severity Reaction Status Date / Time shellfish derived Allergy Anaphylaxis Verified 03/11/21 17:39 Family History Other CAD (coronary artery disease) Cancer Diabetes Heart disease Hypertension Uterine cancer Social History Smoking Status: Former smoker substance use type: does not use ROS ROS ED Constitutional Constitutional ED: Denies chills or fever(s) ENT ENT ED: Denies sore throat Cardiovascular Cardiovascular: Denies chest pain or palpitations Respiratory/Chest Respiratory/Chest: Denies cough or dyspnea Gastrointestinal Gastrointestinal: Denies abdominal pain, diarrhea, nausea or vomiting Genitourinary Genitourinary ED: Denies dysuria Musculoskeletal Musculoskeletal: Denies myalgias Integumentary Reports other Details: Positive chronic wounds ; Denies rash Neurologic Neurologic: Denies headache(s) Hematologic/Lymphatic Hematologic/Lymphatic: Reports anemia, easy bleeding and easy bruising EXAM Physical Exam Const Vital Signs: 03/11/21 17:38 03/11/21 23:10 Temperature 99.2 F H Temperature Source Temporal Pulse Rate 79 Respiratory Rate 18 Respiratory Pattern Normal Blood Pressure 163/87 H Blood Pressure Mean 112 Pulse Ox 91 Oxygen Delivery Method Room Air Positive well nourished and well developed General Appearance ED: well developed HEENT Reports dry mucous membranes Mouth ED: Yes dry mucous membranes Mouth: dry mucous membranes Eyes PERRL and EOMs intact bilaterally General Eye ED: Yes pale conjunctiva Neck supple Resp normal respiratory effort Resp Narrative: Breath sounds are slightly diminished throughout but overall clear to auscultation with no nasal flaring retractions tachypnea or accessory muscle use Cardio regular rate and regular rhythm GI normal to inspection, nondistended, normoactive bowel sounds, non-tender, non- distended and no masses GI Narrative: No fluid wave or pulsatile mass Auscultation: normoactive bowel sounds Palpation: soft Extremity Extremity Narrative: Patient has a left [id number] amputation and she has chronic wounds to her right lower leg as well as bilateral arms but otherwise no acute changes Neuro oriented x3 and CN's II-XII intact bilaterally Sensorium / Orientation: alert Psych mental status grossly normal Skin Skin Narrative: Chronic soft tissue changes to the extremities as documented above without secondary changes to suggest infection MDM MDM MDM Narrative Medical decision making narrative: Patient presented to the ER in no acute respiratory distress satting in the low to mid 90s on room air. She states she feels perfectly normal and at her baseline. She states the only reason she is in the hospital is because the care home center because of a reported abnormal lab. The labs from the care home were reviewed and her proBNP is elevated at 14,000. Despite this high value she does not have JVD or crackles or swelling of her right lower extremity. Also there is no fluid wave. Therefore I felt no need for repeat laboratory studies but elected to perform a chest x-ray which revealed no signs of vascular congestion or fluid overload. Therefore at this time there is no need for further work-up and patient can be discharged back to the care home and they can decide if they want to start Lasix on an outpatient basis Discharge Plan Triage Chief Complaint: Abn Labs ED Provider: Maximino Mir Dx/Rx/DC Orders Clinical Impression: Abnormal laboratory test result Prescriptions: No Action metoprolol succinate 25 mg tablet extended release 24 hr 25 mg PO DAILY RF: 0 atorvastatin 40 MG tablet 40 mg PO DAILY RF: 0 clopidogrel 75 MG tablet 75 mg PO DAILY RF: 0 aspirin 81 MG tablet,chewable 81 mg PO DAILY RF: 0 gabapentin 600 mg tablet 600 mg PO TID RF: 0 hydralazine 25 mg Tablet 25 mg PO TID RF: 0 melatonin 3 mg Tablet 3 mg PO QHS RF: 0 potassium chloride [Klor-Con M20] 20 mEq Tablet,Er Particles/Crystals 20 meq PO BID RF: 0 famotidine 20 mg Tablet 20 mg PO BID RF: 0 ascorbic acid (vitamin C) 500 mg Tablet 500 mg PO DAILY RF: 0 ferrous sulfate 325 mg (65 mg iron) Tablet 325 mg PO DAILY RF: 0 fluoxetine 20 mg Tablet 20 mg PO DAILY RF: 0 Humulin R Regular U-100 Insuln 100 unit/mL Solution 5 unit SUBCUT TIDCM RF: 0 hydroxyzine HCl 25 mg Tablet 25 mg PO TID RF: 0 furosemide 20 mg Tablet 60 mg PO DAILY RF: 0 multivitamin with minerals Tablet 1 tab PO DAILY RF: 0 loratadine 10 mg Tablet 10 mg PO DAILY RF: 0 Lantus Solostar U-100 Insulin 100 unit/mL (3 mL) insulin pen 13 unit SC DAILY RF: 0 Primary Care Provider: Milena Blackburn NP Referrals: Milena Blackburn NP, [facility] [Primary Care Provider] - Disposition Disposition: Home, Self Care
== END 2021-03-12 02:09 | disposition home or self-care (01) ==
PROVIDERS: Emergency Provider Emergency Medicine; PCP Nurse Practitioner Family; Visit Provider Emergency Medicine
DX: R79.9 Abnormal finding of blood chemistry, unspecified (principal); Z87.891 Personal history of nicotine dependence
CPT/HCPCS: 71045; 99282

== ENCOUNTER 2021-04-04 16:32 | Inpatient (IN) | payer MEDICARE, MEDICAID, SELFPAY ==
[2021-04-04] VITALS (9 sets, daily range): BP systolic 124–142; BP diastolic 62–84; PULSE 76–77; RESP 12–20; TEMP 36.6–36.9; O2SAT 93–97; BMI 37.5; BMI 34.9
--- NOTE | 2021-04-04 17:25 | EKG12_ITS ---
Test Reason : ALT MENTAL Blood Pressure : / mmHG Vent. Rate : 077 BPM Atrial Rate : 077 BPM P-R Int : 000 ms QRS Dur : 100 ms QT Int : 354 ms P-R-T Axes : 000 107 136 degrees QTc Int : 400 ms Normal sinus rhythm Low voltage QRS Nonspecific T wave abnormality Abnormal ECG Confirmed by JUANJOSE RUTLEDGE, GRISELDA ([id number]), science editor STELLA ANAYA ([id number]) on 04/08/2021 10:50:25 AM Referred By: TONYA Confirmed By:GRISELDA SOW MD
--- NOTE | 2021-04-04 17:26 | ED.VIS.DYS ---
HPI History of Present Illness Chief Complaint: Shortness of Breath Informant: patient and spouse/S.O. Narrative Narrative: Presents by EMS from [place] for reported dyspnea hypoxia with pulse ox meter at 90% on her chronic 2 L. History of CHF coronary disease with CABG. Patient currently at nursing facility for the past 3 months/s other had above-knee amputation and recovering there. This was done in [place]. She is currently on Lasix 60 mg daily. Noted she is having increasing swelling since being at the facility. Nonproductive cough for 3 days. No fevers. No headaches. She is Covid vaccinated in the last 6 months. Denies chest or abdominal pain. From records she is currently on Levaquin 500 mg daily up till April 11 started on March 28 reported treatment for her right toe infections. There was amputations to to toes there prior to her left leg amputations per significant other. Prior similar symptoms: Yes PFSH [facility] Medical History (Updated 04/04/21 @ 23:[address] Geronimo Oviedo, DO) Above knee amputation of left lower extremity Amputation of toe of right foot Anemia Former tobacco use HTN (hypertension) Hyperlipidemia Myocardial infarct Neuropathy Obesity PAD (peripheral artery disease) PVD (peripheral vascular disease) Type 2 diabetes mellitus with diabetic polyneuropathy Home Medications aspirin 81 mg PO DAILY 12/16/18 [History Last Taken 04/04/21] atorvastatin 40 mg PO DAILY 12/16/18 [History Last Taken 04/03/21] clopidogrel 75 mg PO DAILY 12/16/18 [History Last Taken 04/04/21] metoprolol succinate 25 mg tablet,extended release 24 hr 25 mg PO DAILY 10/31/19 [History Last Taken 04/04/21 10:00] Humulin R Regular U-100 Insuln 5 unit SUBCUT TIDCM 02/07/21 [History Last Taken 04/04/21 11:00] Lantus Solostar U-100 Insulin 13 unit SC DAILY 02/07/21 [History Last Taken 02/07/21] ascorbic acid (vitamin C) 500 mg PO DAILY 02/07/21 [History Last Taken 04/04/21] famotidine 20 mg PO BID 02/07/21 [History Last Taken 04/04/21 08:00] ferrous sulfate 325 mg PO DAILY 02/07/21 [History Last Taken 04/04/21] fluoxetine 20 mg PO DAILY 02/07/21 [History Last Taken 02/07/21] furosemide 60 mg PO DAILY 02/07/21 [History Last Taken 04/04/21] gabapentin 600 mg PO TID 02/07/21 [History Last Taken 04/04/21 12:00] hydralazine 25 mg PO TID 02/07/21 [History Last Taken 04/04/21 12:00] hydroxyzine HCl 25 mg PO QHS 02/07/21 [History Last Taken 04/03/21] loratadine 10 mg PO DAILY 02/07/21 [History Last Taken 04/04/21] melatonin 3 mg PO QHS 02/07/21 [History Last Taken 04/03/21] multivitamin with minerals 1 tab PO DAILY 02/07/21 [History Last Taken 04/04/21] potassium chloride [Klor-Con M20] 20 meq PO BID 02/07/21 [History Last Taken 04/04/21 09:00] buspirone 7.5 mg TID 04/04/21 [History Last Taken 04/04/21 12:00] levofloxacin 500 mg QHS 04/04/21 [History Last Taken 04/03/21] Allergy/AdvReac Type Severity Reaction Status Date / Time shellfish derived Allergy Anaphylaxis Verified 04/04/21 16:34 Family History (Updated 04/04/21 @ 21:[address] Laura Zhao MD) Mother Hypertension Heart disease Diabetes Cancer CAD (coronary artery disease) Uterine cancer Father Hypertension Heart disease Diabetes Cancer CAD (coronary artery disease) Surgical History (Updated 04/04/21 @ 21:[address] Laura Zhao MD) Hx of coronary angioplasty S/P AKA (above knee amputation) unilateral S/P CABG x 3 S/P foot surgery, right Social History (Updated 04/04/21 @ 21:[address] Laura Zhao MD) housing: retirement Smoking Status: Former smoker how long ago did patient quit smoking: Quit 3-4 years prior, smoked 1 ppd since teen until quit. alcohol intake: never substance use type: does not use ROS ROS ED Constitutional Constitutional ED: Denies chills, fever(s) or sweats Eyes Eyes: Denies change in vision ENT ENT ED: Denies dysphagia or sore throat Cardiovascular Cardiovascular: Denies chest pain, leg edema, palpitations or racing heartbeat Respiratory/Chest Respiratory/Chest: Reports cough and dyspnea; Denies dyspnea on exertion Gastrointestinal Gastrointestinal: Denies abdominal pain, diarrhea, nausea or vomiting Genitourinary Genitourinary ED: Denies dysuria, hematuria or urinary frequency Musculoskeletal Musculoskeletal: Denies back pain, extremity pain or neck pain Integumentary Denies rash or wounds Neurologic Neurologic: Denies headache(s), paresthesias or weakness EXAM Physical Exam Const Vital Signs: 04/04/21 16:35 04/04/21 16:39 04/04/21 17:25 Temperature 98.5 F 98.5 F Temperature Source Oral Oral Pulse Rate 77 76 Respiratory Rate 14 15 Respiratory Effort Normal Non-Labored Respiratory Depth Normal Respiratory Pattern Normal Blood Pressure 142/84 H 142/84 H Blood Pressure Mean 103 103 Pulse Ox 97 96 95 Oxygen Delivery Method Nasal Cannula Nasal Cannula Nasal Cannula Oxygen Flow Rate (L/min) 3 3 2 04/04/21 19:12 Temperature 98.0 F Temperature Source Oral Pulse Rate 77 Respiratory Rate 12 Respiratory Effort Respiratory Depth Respiratory Pattern Blood Pressure 131/69 H Blood Pressure Mean 89 Pulse Ox 93 Oxygen Delivery Method Nasal Cannula Oxygen Flow Rate (L/min) 2 Positive well nourished and well developed Constitutional Narrative: 2 L oxygen at 96%. Nontoxic. General Appearance ED: well developed and NAD HEENT Reports moist mucous membranes normocephalic and atraumatic Eyes PERRL, EOMs intact bilaterally and conjunctivae normal General Eye ED: Yes normal appearance of both eyes Neck no lymphadenopathy and supple General: Negative for tenderness Chest Wall Chest: Negative for tenderness Resp normal respiratory effort and normal air movement Effort and Inspection: symmetric chest movement; Negative for respiratory distress Cardio regular rate, regular rhythm and no murmurs Peripheral Pulses: pulses 2+ throughout GI normal to inspection, nondistended, normoactive bowel sounds and non-tender Palpation: Negative for guarding or rebound tenderness present Back/Spine no CVA tenderness and no thoracic nor lumbar tenderness Extremity normal to inspection Extremity Narrative: Upper extremity edema bilaterally 2+. Left lower extremity: AKA. Right lower extremity: Dressing placed to the lower extremity and foot. Clean, dry, intact. General Extremety ED: Yes edema; Negative for tenderness General Extremity: edema Neuro oriented x3 and no sensory deficits noted Sensorium / Orientation: awake and alert Skin no rashes or lesions noted and no wounds MDM MDM MDM Narrative Medical decision making narrative: Patient stable on her baseline oxygen. She does have increasing edema upper extremities and right lower extremity. I did check labs white count 5 hemoglobin 8 actually stable from previous. Creatinine about 1.7 compared to previously at 1. BNP at 2300. Chest x-ray notes increasing edema with reported bilateral infiltrates. She has had a dry cough. She is currently on Levaquin for foot infection. Patient given Lasix 40 mg IV. I did discuss with hospitalist Dr. Zhao for admission to PCU. After admission nursing obtain urine states cloudy and milky. This was sent to the lab, noted leukocytes and white cells greater than 100. I did add a culture. I did relay these findings to Dr. Zhao. Lab Data Attestation: I reviewed the patient's lab results. Labs: Laboratory Results - last 24 hr 04/04/21 04/04/21 04/04/21 17:55 17:55 17:55 WBC 5.1 RBC 3.24 L Hgb 8.0 L Hct 28.3 L MCV 87.3 MCH 24.7 L MCHC 28.3 L RDW Std Deviation 52.1 H RDW Coeff of New 16.3 H Plt Count 287 MPV 9.1 Immature Gran % (Auto) 0.600 Neut % (Auto) 75.1 H Lymph % (Auto) 12.8 L [place] % (Auto) 10.5 H Eos % (Auto) 0.6 Baso % (Auto) 0.4 Absolute Neuts (auto) 3.8 Absolute Lymphs (auto) 0.65 L Nucleated RBC % 0.4 Sodium 136 Potassium 5.1 Chloride 104 Carbon Dioxide 26.0 Anion Gap 6 BUN 58 H Creatinine 1.74 H Estim Creat Clear Calc 35.12 Est GFR (MDRD) Af Amer 39 L Est GFR (MDRD) Non-Af 32 L BUN/Creatinine Ratio 33.3 H Glucose 87 Calcium 8.0 L Magnesium B-Natriuretic Peptide 2330.3 H Urine Color Urine Clarity Urine pH Ur Specific [place]ana Urine Protein Urine Glucose (UA) Urine Ketones Urine Occult Blood Urine Nitrite Urine Bilirubin Urine Urobilinogen Ur Leukocyte Esterase Urine RBC Urine WBC Ur Squamous Epith Cells Urine Bacteria Urine Mucus 04/04/21 04/04/21 17:55 19:55 WBC RBC Hgb Hct MCV MCH MCHC RDW Std Deviation RDW Coeff of New Plt Count MPV Immature Gran % (Auto) Neut % (Auto) Lymph % (Auto) [place] % (Auto) Eos % (Auto) Baso % (Auto) Absolute Neuts (auto) Absolute Lymphs (auto) Nucleated RBC % Sodium Potassium Chloride Carbon Dioxide Anion Gap BUN Creatinine Estim Creat Clear Calc Est GFR (MDRD) Af Amer Est GFR (MDRD) Non-Af BUN/Creatinine Ratio Glucose Calcium Magnesium 2.3 B-Natriuretic Peptide Urine Color Yellow Urine Clarity Turbid Urine pH 5.0 Ur Specific Pana 1.020 Urine Protein 30 H Urine Glucose (UA) Normal Urine Ketones Negative Urine Occult Blood 50 H Urine Nitrite Negative Urine Bilirubin Negative Urine Urobilinogen Normal Ur Leukocyte Esterase 500 H Urine RBC 0 SEEN Urine WBC >100 SEEN Ur Squamous Epith Cells 0 SEEN Urine Bacteria 0 SEEN Urine Mucus 0 SEEN Radiography Diagnostic Testing: Clinical Impression(s) from Imaging Studies Chest X-Ray 04/04/21 18:22 IMPRESSION: Pulmonary findings appear worse. Electronically Signed: Sergio Deleon MD at 18:58 EST Reading Location ID and State: [facility] / [place] , Service support , Discharge Plan Dx/Rx/DC Orders Clinical Impression: CHF exacerbation, ALICIA (acute kidney injury) Disposition Disposition: Acute Care Hospital [facility] Discharge Date/Time: 04/04/21 21:22
--- NOTE | 2021-04-04 17:27 | NURSING ---
NO OLD EKGS
[2021-04-04 18:08] LABS: Absolute Lymphocyte Count 0.65 X10^3/uL (0.83-4.51); Absolute Neutrophil Count 3.8 X10^3/uL (2.0-7.7); Basophil# 0.02 X10^3/uL; Basophil% 0.4 % (0-1); Eosinophil# 0.03 X10^3/uL; Eosinophils% 0.6 % (0-5); Hematocrit 28.3 % (37-47); Lymphocyte # 0.65 X10^3/ul (0.83-4.51); Lymphocyte % 12.8 % (19-41); Mean Corp Hgb Conc 28.3 g/dL (32-36); Mean Corpuscular Hgb 24.7 pg (27.0-32.0); Mean Corpuscular Volume 87.3 fL (81-99); Mean Platelet Vol. 9.1 fl (6.2-12.0); Monocyte# 0.53 X10^3/uL; Monocyte% 10.5 % (0-10); NRBC Flagged by Analyzer 0.4 % (0-5); Neutrophil % 75.1 % (47-70); Platelet Count 287 K/mm3 (150-450); RBC Distribution Width CV 16.3 % (11.6-14.6); RBC Distribution Width SD 52.1 fl (35.1-43.9); Red Blood Count 3.24 M/mm3 (4.2-5.4); White Blood Count 5.1 K/mm3 (4.4-11.0)
[2021-04-04 18:22] LABS: Anion Gap 6 (5-15); BNP,B-Type NATRIURETIC PEPTIDE 2330.3 pg/mL (0-100); BUN 58 mg/dL (7-18); BUN/Creat Ratio 33.3 RATIO (10-20); Chloride 104 mmol/L (98-107); Creatinine, Serum 1.74 mg/dL (0.55-1.02); EST Glomerular Filtration Rate 32 mL/min (>60); Est Glom Filt Rate - Afr Amer 39 mL/min (>60); Estimated Creatinine Clearance 35.12 ml/min; Glucose 87 mg/dL (74-106); Potassium 5.1 mmol/L (3.5-5.1); Sodium Level 136 mmol/L (136-145)
--- NOTE | 2021-04-04 18:22 | RAD_ITS ---
STUDY: X-RAY CHEST REASON FOR EXAM: Female, 60 years old. CHEST PAIN cough TECHNIQUE: XR Chest 1 View COMPARISON: 03.11.21 FINDINGS: There is a right pleural effusion. There is bilateral infiltrate. There are multiple median sternotomy wires. Normal size heart. Normal mediastinum and emily. Normal visualized pulmonary arteries. There is atherosclerotic calcification of the aortic arch with tortuosity. There are diffuse degenerative changes of the visualized thoracic spine. There is degenerative osteoarthritis of the bilateral shoulders. There is a hiatal hernia. RAD/Chest 1 View (Portable) IMPRESSION: Pulmonary findings appear worse. Electronically Signed: Sergio Deleon MD at 18:58 EST ,
--- NOTE | 2021-04-04 20:34 | HP.PCM.HOS_ITS ---
HPI - General General Date of Admission: 04/04/21 Date of Service: 04/04/21 Chief Complaint: Dyspnea, weight gain, orthopnea. HPI Narrative The patient is a 60 y/o F w/ PMHx: Anxiety and Depression, Poorly controlled Diabetes mellitus type II w/ chronic RLE diabetic foot wound and s/p L AKA, PAD s/p BL LE stents, CAD s/p CABG x 3 and PCI, Obesity, Former Tobacco use, Chronic Hypoxic Respiratory Failure on 2-4L NC, Chronic anemia/normocytic, HTN, HLD, CKD stage III unclear subtype currently rising at SNF who presents to the [facility] ED on 04/04/21 with history of several days of progressively worsening fatigue, dyspnea, worse with any activity attempts, weight gain and orthopnea prompting eventual ED evaluation. Since most recent hospitalization patient has gained per spouse greater than 20 pounds. Patient is currently at skilled secondary to chronic wound care necessities. Patient has been on Levaquin for right toe diabetic wound with plan treatment through 04/11/2021. Work-up in the ED included T 98.5, heart rate 77, BP 142/84, respiratory rate 14, 97% on 3 L nasal cannula, CBC with WC 5.1, hemoglobin 8, platelet 287 with lymphopenia, BMP with BUN/creatinine 58/1.74, BNP 2330.3, rapid Covid antigen negative, EKG with sinus rhythm with no acute evidence of ischemia, chest x-ray with bilateral congestion, questionable infiltrates versus edema. In the ED patient administered IV Lasix therapy. [facility] Medical History (Updated 04/04/21 @ 21:[address] Laura Zhao MD) Above knee amputation of left lower extremity Amputation of toe of right foot Anemia Former tobacco use HTN (hypertension) Hyperlipidemia Myocardial infarct Neuropathy Obesity PAD (peripheral artery disease) PVD (peripheral vascular disease) Type 2 diabetes mellitus with diabetic polyneuropathy Home Medications aspirin 81 mg PO DAILY 12/16/18 [History Last Taken 02/07/21] atorvastatin 40 mg PO DAILY 12/16/18 [History Last Taken 02/06/21] clopidogrel 75 mg PO DAILY 12/16/18 [History Last Taken 02/07/21] metoprolol succinate 25 mg tablet,extended release 24 hr 25 mg PO DAILY 10/31/19 [History Last Taken 02/07/21] Humulin R Regular U-100 Insuln 5 unit SUBCUT TIDCM 02/07/21 [History Last Taken 02/07/21] Lantus Solostar U-100 Insulin 13 unit SC DAILY 02/07/21 [History Last Taken 02/07/21] ascorbic acid (vitamin C) 500 mg PO DAILY 02/07/21 [History Last Taken 02/07/21] famotidine 20 mg PO BID 02/07/21 [History Last Taken 02/07/21] ferrous sulfate 325 mg PO DAILY 02/07/21 [History Last Taken 02/07/21] fluoxetine 20 mg PO DAILY 02/07/21 [History Last Taken 02/07/21] furosemide 60 mg PO DAILY 02/07/21 [History Last Taken 02/07/21] gabapentin 600 mg PO TID 02/07/21 [History Last Taken 02/07/21] hydralazine 25 mg PO TID 02/07/21 [History Last Taken 02/07/21] hydroxyzine HCl 25 mg PO TID 02/07/21 [History Last Taken 02/07/21] loratadine 10 mg PO DAILY 02/07/21 [History Last Taken 02/07/21] melatonin 3 mg PO QHS 02/07/21 [History Last Taken 02/06/21] multivitamin with minerals 1 tab PO DAILY 02/07/21 [History Last Taken 02/07/21] potassium chloride [Klor-Con M20] 20 meq PO BID 02/07/21 [History Last Taken 02/07/21] Allergy/AdvReac Type Severity Reaction Status Date / Time shellfish derived Allergy Anaphylaxis Verified 04/04/21 16:34 Family History (Updated 04/04/21 @ 21:[address] Laura Zhao MD) Mother Hypertension Heart disease Diabetes Cancer CAD (coronary artery disease) Uterine cancer Father Hypertension Heart disease Diabetes Cancer CAD (coronary artery disease) Surgical History (Updated 04/04/21 @ 21:[address] Laura Zhao MD) Hx of coronary angioplasty S/P AKA (above knee amputation) unilateral S/P CABG x 3 S/P foot surgery, right Social History (Updated 04/04/21 @ 21:[address] Laura Zhao MD) housing: residential Smoking Status: Former smoker how long ago did patient quit smoking: Quit 3-4 years prior, smoked 1 ppd since teen until quit. alcohol intake: never substance use type: does not use ROS ROS Narrative Admission Review of Systems: CONSTITUTIONAL: No weight loss, fever, chills, + weakness or fatigue. HEENT: Eyes: No visual loss, blurred vision, double vision or yellow sclerae. Ears, Nose, Throat: No hearing loss, sneezing, congestion, runny nose or sore throat. SKIN: + Chronic wounds. CARDIOVASCULAR: + Edema, weight gain, orthopnea. No chest pain, chest pressure or chest discomfort, palpitations, syncopal events. RESPIRATORY: + shortness of breath, cough, No marked sputum, wheezing, hemoptysis. GASTROINTESTINAL: No anorexia, nausea, vomiting or diarrhea, abdominal pain, melena, BRBPR. GENITOURINARY: No dysuria, frequency, urgency or retention. NEUROLOGICAL: No headache, dizziness, syncope, paralysis, ataxia, numbness or tingling in the extremities, focal weakness, change in bowel or bladder control, seizure. MUSCULOSKELETAL: + muscle, back pain, joint pain or stiffness. HEMATOLOGIC: + anemia, bleeding or bruising. LYMPHATICS: No enlarged nodes. No history of splenectomy. PSYCHIATRIC: _ history of depression or anxiety. ENDOCRINOLOGIC: No reports of sweating, cold or heat intolerance. No polyuria or polydipsia. ALLERGIES: No history of asthma, hives, eczema or rhinitis. Vital Signs Vital Signs Vital Signs: 04/04/21 16:35 04/04/21 16:39 04/04/21 17:25 Temperature 98.5 F 98.5 F Temperature Source Oral Oral Pulse Rate 77 76 Respiratory Rate 14 15 Respiratory Effort Normal Non-Labored Respiratory Depth Normal Respiratory Pattern Normal Blood Pressure 142/84 H 142/84 H Blood Pressure Mean 103 103 Pulse Ox 97 96 95 Oxygen Delivery Method Nasal Cannula Nasal Cannula Nasal Cannula Oxygen Flow Rate (L/min) 3 3 2 04/04/21 19:12 Temperature 98.0 F Temperature Source Oral Pulse Rate 77 Respiratory Rate 12 Respiratory Effort Respiratory Depth Respiratory Pattern Blood Pressure 131/69 H Blood Pressure Mean 89 Pulse Ox 93 Oxygen Delivery Method Nasal Cannula Oxygen Flow Rate (L/min) 2 Weight Weight: 246 lb 11.156 oz Body Mass Index (BMI) 37.5 Physical Exam Narrative Physical Examination: General: Awake, alert, oriented x 3 and cooperative, seated upright in the ED bed, fatigued, no acute distress. Skin: Normal color, normal turgor, no icterus, no cyanosis except for abrasions to the extremities, evidence of scratch marking especially to the left upper extremity and thorax, status post left AKA, right lower extremity with chronic diabetic wounds. HEENT: AT/NC, EOMI, PERRLA, MMM, no carotid bruits, + JVD noted although difficult exam given thickened neck. Lungs: Diminished, greater bases, moderate effort, mild bilateral rales, no ronchi or wheezing. Heart: Regular rate and rhythm; no gallop, rub audible. Abdomen: Soft, obese, NTTP, ND, distant normal BS, no obvious HSM; however, habitus makes examination difficult. Extremities: No cyanosis, no clubbing, status post left AKA with stump well appearing, right lower extremity with diabetic wounds in place with evidence of prior toe amputations, edema. Neurological: Patient awake, alert, oriented as noted, cognitive function intact; pupils equally reactive to light and accommodation, cranial nerves II- XII grossly normal, moving all 4 extremities, no focal deficits, strength sever dunia global decrease secondary to acute presentation. Psychiatric: Affect appears fatigued, no acute evidence of depressive or anxiety feelings. Results Lab / Micro Data Result Diagrams: 04/04/21 17:55 04/04/21 17:55 Labs: Laboratory Results - last 24 hr 04/04/21 17:55: WBC 5.1, RBC 3.24 L, Hgb 8.0 L, Hct 28.3 L, MCV 87.3, MCH 24.7 L , MCHC 28.3 L, RDW Std Deviation 52.1 H, RDW Coeff of New 16.3 H, Plt Count 287, MPV 9.1, Immature Gran % (Auto) 0.600, Neut % (Auto) 75.1 H, Lymph % (Auto) 12.8 L, Hendricks % (Auto) 10.5 H, Eos % (Auto) 0.6, Baso % (Auto) 0.4, Absolute Neuts (auto) 3.8, Absolute Lymphs (auto) 0.65 L, Nucleated RBC % 0.4 04/04/21 17:55: Sodium 136, Potassium 5.1, Chloride 104, Carbon Dioxide 26.0, Anion Gap 6, BUN 58 H, Creatinine 1.74 H, Estim Creat Clear Calc 35.12, Est GFR (MDRD) Af Amer 39 L, Est GFR (MDRD) Non-Af 32 L, BUN/Creatinine Ratio 33.3 H, Glucose 87, Calcium 8.0 L 04/04/21 17:55: B-Natriuretic Peptide 2330.3 H Micro: Microbiology 04/04/21 17:48 Nasal Secretion SARS-CoV-2 Antigen (Rapid) - Final Radiology Impression Chest X-Ray 04/04/21 18:22 IMPRESSION: Pulmonary findings appear worse. Electronically Signed: Sergio Deleon MD at 18:58 EST Reading Location ID and State: [facility] / [place] , Service support , Assessment & Plan Assessment/Plan (1) CHF exacerbation: QUALIFIERS: Heart failure type: unspecified Qualified Code(s): I50.9 - Heart failure, unspecified PLAN: The patient is a 60 y/o F w/ PMHx: Anxiety and Depression, Poorly controlled Diabetes mellitus type II w/ chronic RLE diabetic foot wound and s/p L AKA, PAD s/p BL LE stents, CAD s/p CABG x 3 and PCI, Obesity, Former Tobacco use, Chronic Hypoxic Respiratory Failure on 2-4L NC, Chronic anemia/normocytic, HTN, HLD, CKD stage III unclear subtype currently rising at [facility] who presents to the [facility] ED on 04/04/21 with history of several days of progressively worsening fatigue, dyspnea, worse with any activity attempts, weight gain and orthopnea prompting eventual ED evaluation. #1. Acute Decompensated CHF, Unclear type: Patient administered IV lasix in the ED, will admit to PCU, maintain on cardiac telemetry, obtain cardiac enzyme series, obtain serial EKGs, continue IV lasix diuresis, monitor I/Os, continue medical therapy, obtain TSH and magnesium level, obtain echocardiogram, placement Ricky wraps with elevation right lower extremity as able, given chest x- ray findings will also repeat chest x-ray in a.m. to assure no underlying infiltrates however patient does not have significant WC elevation or left shift and is afebrile. #2. Acute Renal Insufficiency on Chronic Kidney Disease Stage III, unclear subtype: Admission BUN/Cr 58/1.74, baseline renal function 1.0-1.2, repeat renal function in the a.m., plan to continue home regimen however if worsen renal function may necessitate temporarily hold holding specific nephrotoxic regimen. #3. Chronic Hypoxic Respiratory Failure presumed secondary to Chronic COPD: Patient chronically on 2 to 4 L nasal cannula, unclear specific etiology however given tobacco prolonged usage suspect likely underlying COPD, will maintain on as needed albuterol, encourage head of bed, I-S. #4. Diabetes mellitus type II poorly controlled with neuropathy: Hold oral home regimen, continue home insulin regimen, ADA diet, accu checks w/ ISS. #5. Chronic normocytic anemia/Fe Deficiency anemia: Admission hemoglobin 8, baseline 89, stable, continue Fe supplementation, trend. #6. Obesity: Weight loss and lifestyle changes encouraged. #7. Hypertension: Continue home regimen including metoprolol, hydralazine, IV Lasix as noted, PRN hydralazine. #8. Hyperlipidemia: Continue home statin regimen. AM FLP. #9. Chronic right lower extremity diabetic wounds: We will continue wound RN consultation, dressing changes, plan to complete Levaquin antibiotic therapy. #10. PAD: Status post bilateral lower extremity stenting, continue aspirin, Plavix, statin, hypertensive and diabetic regimen as noted. #11. CAD: Status post CABG x3 and PCI, continue aspirin, Plavix, statin, hypertensive and diabetic regimen as noted. #12. Anxiety and Depression: Will continue patient home fluoxetine and hydroxyzine regimen. #13. Former tobacco use: Encourage continued tobacco cessation. #14. DVT prophylaxis: SCDs, Lovenox. #15. CODE status: Patient does not have healthcare power of patent prosecution attorney nor living will in place. is present for these discussions. Discussed CODE status at length including difference between FULL code, DNR-CCA and DNR-CC status. Following discussions about the differences in these status, requested Full Code status. Advanced Care Planning Face to Face Time: 16 minutes. Charges/Coding Visit Charges Inpatient E&M: 79325 Init Hosp L3 Procedures Hospitalists Procedures: 05914 Advncd Care Plan 30 Min
[2021-04-04] MEDS: Furosemide 40 MG/4 ML Vial IV (20:43)
[2021-04-04 21:31] LABS: Magnesium 2.3 mg/dL (1.6-2.6)
[2021-04-04 21:44] LABS: Bacteria 0 SEEN /hpf (None Seen); Color, Urine Yellow (Yellow); Glucose, Dipstick Normal (Normal); Ketone-Dipstick Negative (Negative); Leukocyte Esterase-Dipstick 500 /ul (Negative); Mucous, Urine 0 SEEN /hpf (<or=2+); Nitrite-Dipstick Negative (Negative); Occult Blood-Urine 50 /ul (Negative); Protein-Dipstick 30 mg/dl (Negative); Red Blood Cells-Urine 0 SEEN /hpf (0-5); Squamous Epithelial Cells - UA 0 SEEN /hpf (5-10); Urine Bilirubin Dipstick Negative (Negative); Urine Clarity Turbid (Clear); Urine Urobilinogen Normal (Normal)
[2021-04-04 21:50] LABS: White Blood Cells >100 SEEN /hpf (0-5)
--- NOTE | 2021-04-04 21:59 | PCS.PANDOC ---
PANDEMIC DOCUMENTATION INITIATED: Date: 10/22/2020 Time: 190
[2021-04-04] MEDS: Potassium Chloride Oral Tablet 20 MEQ PO (22:24)
[2021-04-04] MEDS: Enoxaparin 40 MG/0.4 ML Syringe SC (22:24)
[2021-04-04] MEDS: hydrOXYzine PAM 25 MG Capsule PO (22:24)
[2021-04-04] MEDS: hydrALAZINE 25 MG Tablet PO (22:24)
[2021-04-04 23:16] LABS: Troponin-I HS 21 pg/mL (3.0-54.0)
[2021-04-04 23:22] LABS: Procalcitonin 0.26 ng/mL (0.00-0.09)
[2021-04-04] MEDS: Gabapentin 600 MG Tablet PO (23:43)
[2021-04-04 23:56] LABS: Bedside Glucose 94 mg/dL (70-110)
[2021-04-05] VITALS (15 sets, daily range): BP systolic 110–134; BP diastolic 63–90; PULSE 72–80; RESP 18–20; TEMP 36.7–36.9; O2SAT 94–96
[2021-04-05 00:52] LABS: Troponin-I HS 19 pg/mL (3.0-54.0)
[2021-04-05 05:34] LABS: Absolute Lymphocyte Count 0.51 X10^3/uL (0.83-4.51); Absolute Neutrophil Count 3.1 X10^3/uL (2.0-7.7); Basophil# 0.02 X10^3/uL; Basophil% 0.5 % (0-1); Eosinophil# 0.03 X10^3/uL; Eosinophils% 0.7 % (0-5); Hematocrit 27.5 % (37-47); Hemoglobin 7.5 g/dL (12.0-15.0); Lymphocyte # 0.51 X10^3/ul (0.83-4.51); Mean Corp Hgb Conc 27.3 g/dL (32-36); Mean Corpuscular Hgb 23.8 pg (27.0-32.0); Mean Corpuscular Volume 87.3 fL (81-99); Mean Platelet Vol. 9.2 fl (6.2-12.0); Monocyte# 0.61 X10^3/uL; Monocyte% 14.4 % (0-10); NRBC Flagged by Analyzer 0 % (0-5); Neutrophil # 3.06 X10^3/uL (2.7-7.7); Neutrophil % 71.9 % (47-70); POSITIVE DIFFERENTIAL YES; Platelet Count 250 K/mm3 (150-450); RBC Distribution Width CV 16.2 % (11.6-14.6); RBC Distribution Width SD 51.5 fl (35.1-43.9); Red Blood Count 3.15 M/mm3 (4.2-5.4); White Blood Count 4.3 K/mm3 (4.4-11.0)
[2021-04-05] MEDS: hydrOXYzine PAM 25 MG Capsule PO ×3 (05:34→22:21)
[2021-04-05] MEDS: Gabapentin 600 MG Tablet PO ×3 (05:34→22:21)
[2021-04-05] MEDS: hydrALAZINE 25 MG Tablet PO ×3 (05:36→22:24)
[2021-04-05] MEDS: busPIRone 5 MG Tablet 7.5 MG PO ×3 (05:40→22:21)
[2021-04-05 05:43] LABS: Differential Indicated SCAN CRITERIA MET
--- NOTE | 2021-04-05 05:55 | ECHOD_ITS ---
Version 2 Reason For Study: CHF Procedure This was a 2D Doppler, Color Flow transthoracic echocardiogram. Exam performed portable in patient room. Left Ventricle Normal LV size. The estimated ejection fraction is 55 %. Stage 2 diastolic dysfunction. No regional wall motion abnormalities noted. Right Ventricle Normal RV size. Normal systolic function. Atria The left atrium is mildly enlarged. Normal right atrium. No doppler evidence for ASD. Bubble contrast study negative for right to left interatrial shunt. Mitral Valve There is no mitral valve stenosis. Trivial mitral valve insufficiency. Tricuspid Valve There is no tricuspid stenosis. Mild (1+) tricuspid valve insufficiency. Pulmonary artery systolic pressure is 50-55 mmHg. Aortic Valve Mild diffuse aortic valve thickening. Mild aortic stenosis. No aortic valve insufficiency. Pulmonic Valve There is no pulmonic valvular stenosis. No pulmonic valve insufficiency. Great Vessels Normal aortic root. Pericardium/Pleural No pericardial effusion. MMode/2D Measurements & Calculations LVIDd: 4.8 cm IVSd: 1.1 cm LVOT diam: 2.0 cm LVIDs: 3.8 cm LVPWd: 1.1 cm LVOT area: 3.2 cm2 RVDd: 5.1 cm FS: 20.2 % LAV(MOD-bp): 79.5 ml LVAd ap4: 35.3 cm2 LVAd ap2: 38.3 cm2 LAV(MOD-bp) Indexed: 36.7 ml/m2 LVLd ap4: 8.8 cm LVLd ap2: 9.1 cm LAV(MOD-sp2): 75.5 ml EDV(MOD-sp4): 114.7 ml EDV(MOD-sp2): 135.1 ml LAV(MOD-sp4): 83.9 ml EDV(sp4-el): 119.6 ml EDV(sp2-el): 136.7 ml LVAs ap4: 24.1 cm2 LVAs ap2: 25.4 cm2 LVLs ap4: 7.6 cm LVLs ap2: 8.1 cm ESV(MOD-sp4): 62.0 ml ESV(MOD-sp2): 70.1 ml ESV(sp4-el): 64.6 ml ESV(sp2-el): 67.9 ml EF(MOD-sp4): 45.9 % EF(MOD-sp2): 48.1 % EF(sp4-el): 46.0 % SV(MOD-sp4): 52.7 ml SV(MOD-sp2): 65.0 ml SV(sp4-el): 55.0 ml LA dimension(2D): 4.5 cm LA A4 area: 25.4 cm2 RA A4 area: 18.5 cm2 Doppler Measurements & Calculations MV E max aleksey: 144.6 cm/sec Lat Peak E' Aleksey: 9.2 cm/sec Med Peak E' Aleksey: 3.8 cm/sec MV A max aleksey: 98.0 cm/sec E/E' lat: 15.7 E/E' med: 38.0 MV E/A: 1.5 Ao V2 max: 238.1 cm/sec LV V1 max: 109.0 cm/sec SV(LVOT): 71.3 ml Ao max P.7 mmHg LV V1 max P.8 mmHg Ao V2 mean: 184.1 cm/sec LV V1 mean P.4 mmHg Ao mean P.6 mmHg LV V1 mean: 71.3 cm/sec Ao V2 VTI: 55.3 cm LV V1 VTI: 22.3 cm DIVYA(I,D): 1.3 cm2 DIVYA(V,D): 1.5 cm2 PA V2 max: 121.2 cm/sec PI end-d aleksey: 139.0 cm/sec TR max aleksey: 341.4 cm/sec TR max P.6 mmHg ECHO/Echo Complete Interpretation Summary The estimated ejection fraction is 55 %. Stage 2 diastolic dysfunction. The left atrium is mildly enlarged. Trivial mitral valve insufficiency. Mild aortic stenosis. Pulmonary artery systolic pressure is 50-55 mmHg. Ordering Physician: Laura Zhao Referring Physician: SHAINA MILNER Performed By: Matilda Oh, RDCS, RVT
--- NOTE | 2021-04-05 05:55 | RAD_ITS ---
STUDY: X-RAY CHEST REASON FOR EXAM: Female, 60 years old. Dyspnea, cough TECHNIQUE: Single AP portable view of the chest. COMPARISON: Comparison is made with prior study dated 04/04/2021. FINDINGS: EKG liquids are seen. There now is evidence of a mild degree of CHF. Stable mild increased markings at the lung bases suggestive of atelectasis. There is blunting of the right costophrenic angle. Sternal cerclage wires are present from a prior sternotomy. Mild cardiomegaly. Normal mediastinum and emily. Normal visualized pulmonary arteries. There is atherosclerotic tortuosity of the aortic arch and descending thoracic aorta. There are degenerative changes of the visualized thoracic spine. Normal visualized ribs, clavicles, and shoulders. There is no demonstrated abnormality of the visualized soft tissue structures of the upper abdomen. RAD/Chest 1 View (Portable) IMPRESSION: Findings in keeping with mild degree of CHF with the blunting of the right costophrenic angle and bibasilar atelectasis. Electronically Signed: Primo Franklin MD at 9:05 EST ,
[2021-04-05] MEDS: Nystatin Powder 15gm Bottle 1 APPLIC TOPICAL ×3 (06:07→22:17)
[2021-04-05 06:15] LABS: ALB/GLOB Ratio 0.4 RATIO (0.9-2.4); AST(SGOT) 26 U/L (15-37); Alanine Aminotransfer ALT/SGPT 13 U/L (13-56); Albumin, Serum 1.7 g/dL (3.2-5.0); Alkaline Phosphatase 496 U/L (45-117); Anion Gap 6 (5-15); BUN 57 mg/dL (7-18); BUN/Creat Ratio 35.6 RATIO (10-20); Calcium,Total 7.6 mg/dL (8.5-10.1); Chloride 105 mmol/L (98-107); Cholesterol 57 mg/dL (200); Differential Comment SCANNED; EST Glomerular Filtration Rate 35 mL/min (>60); Est Glom Filt Rate - Afr Amer 42 mL/min (>60); Estimated Creatinine Clearance 38.19 ml/min; Globulin 4.5 g/dL (2.2-4.2); Glucose 82 mg/dL (74-106); High Density Lipoprotein 22 mg/dL; Potassium 4.1 mmol/L (3.5-5.1); Protein, Total 6.2 g/dL (6.4-8.2); Sodium Level 139 mmol/L (136-145); Target Cells 1+; Thyroid Stim Hormone (TSH) 6.08 uIU/mL (0.358-3.74); Triglycerides 66 mg/dL; Troponin-I HS 20 pg/mL (3.0-54.0); Very Low Density Lipoprotein 13 mg/dL (5-40)
[2021-04-05 06:51] LABS: Bedside Glucose 96 mg/dL (70-110)
[2021-04-05] MEDS: Metoprolol(XL)Succ 25 MG Tablet PO (08:31)
[2021-04-05] MEDS: Loratadine 10 MG Tablet PO (08:31)
[2021-04-05] MEDS: Ascorbic Acid 500 MG Tablet PO (08:31)
[2021-04-05] MEDS: Multivitamins,Ther W-Minerals Tablet 1 TABLET PO (08:31)
[2021-04-05] MEDS: Aspirin 81 MG TAB.CHEW PO (08:31)
[2021-04-05] MEDS: Ferrous Sulfate 325 MG Tablet PO (08:31)
[2021-04-05] MEDS: Potassium Chloride Oral Tablet 20 MEQ PO ×2 (08:31→22:21)
[2021-04-05] MEDS: FLUoxetine 20 MG Capsule PO (08:31)
[2021-04-05] MEDS: Clopidogrel Bisulfate 75 MG Tablet PO (08:31)
[2021-04-05] MEDS: Menthol/Lanolin/Calamine/Znox 113 GM Tube 1 APPLIC TOPICAL ×4 (08:32→22:18)
[2021-04-05] MEDS: Furosemide 40 MG/4 ML Vial IV ×2 (08:32→17:01)
[2021-04-05] MEDS: Enoxaparin 40 MG/0.4 ML Syringe SC ×2 (08:32→22:25)
[2021-04-05 08:39] LABS: T4 Free Direct 0.91 ng/dL (0.76-1.46)
--- NOTE | 2021-04-05 11:02 | PN.HOSP_ITS ---
Subjective Subjective Patient seen and examined. was by bedside. She was drowsy but arousable.Patient seen the next nausea or vomiting. Review of systems otherwise negative. She had no complaints. She denied any chest pain, palpitations, dizziness, diarrhea vomiting. Review of systems otherwise negative. SHe is on 3L of oxygen; states she was only recently started on oxygen a few days ago in the care home on account of shortness of breath. She has otherwise remained hemodynamically stable. Objective Data Objective Data Vital Signs: Vital Signs Temp Pulse Resp BP Pulse Ox 98.4 F 75 18 125/75 H 94 04/05/21 08:27 04/05/21 08:31 04/05/21 08:27 04/05/21 08:31 04/05/21 08:27 Oxygen Flow Rate (L/min) 2 Oxygen Delivery Method Nasal Cannula Weight: 229 lb 15.074 oz Body Mass Index (BMI) 34.9 Intake & Output: Intake and Output for Last 24 Hours 04/03/21 04/04/21 04/05/21 23:59 23:59 23:59 Output Total 1500 / 1500 800 / 800 Balance -1500 / -1500 -800 / -800 Lab / Micro Data Result Diagrams: 04/05/21 04:22 04/05/21 04:22 Labs: Laboratory Results - last 24 hr 04/04/21 17:55: WBC 5.1, RBC 3.24 L, Hgb 8.0 L, Hct 28.3 L, MCV 87.3, MCH 24.7 L , MCHC 28.3 L, RDW Std Deviation 52.1 H, RDW Coeff of New 16.3 H, Plt Count 287, MPV 9.1, Immature Gran % (Auto) 0.600, Neut % (Auto) 75.1 H, Lymph % (Auto) 12.8 L, Morrill % (Auto) 10.5 H, Eos % (Auto) 0.6, Baso % (Auto) 0.4, Absolute Neuts (auto) 3.8, Absolute Lymphs (auto) 0.65 L, Nucleated RBC % 0.4 04/04/21 17:55: Sodium 136, Potassium 5.1, Chloride 104, Carbon Dioxide 26.0, Anion Gap 6, BUN 58 H, Creatinine 1.74 H, Estim Creat Clear Calc 35.12, Est GFR (MDRD) Af Amer 39 L, Est GFR (MDRD) Non-Af 32 L, BUN/Creatinine Ratio 33.3 H, Glucose 87, Calcium 8.0 L 04/04/21 17:55: B-Natriuretic Peptide 2330.3 H 04/04/21 17:55: Magnesium 2.3 04/04/21 19:55: Urine Color Yellow, Urine Clarity Turbid, Urine pH 5.0, Ur Specific Loxley 1.020, Urine Protein 30 H, Urine Glucose (UA) Normal, Urine Ketones Negative, Urine Occult Blood 50 H, Urine Nitrite Negative, Urine Bilirubin Negative, Urine Urobilinogen Normal, Ur Leukocyte Esterase 500 H, Urine RBC 0 SEEN, Urine WBC >100 SEEN, Ur Squamous Epith Cells 0 SEEN, Urine Bacteria 0 SEEN, Urine Mucus 0 SEEN 04/04/21 22:18: Procalcitonin 0.26 H 04/04/21 22:18: Troponin I High Sens 21 04/04/21 22:35: POC Glucose 94 04/05/21 00:27: Troponin I High Sens 19 04/05/21 04:22: WBC 4.3 L, RBC 3.15 L, Hgb 7.5 L, Hct 27.5 L, MCV 87.3, MCH 23.8 L, MCHC 27.3 L, RDW Std Deviation 51.5 H, RDW Coeff of New 16.2 H, Plt Count 250, MPV 9.2, Immature Gran % (Auto) 0.500, Neut % (Auto) 71.9 H, Lymph % (Auto) 12.0 L, Morrill % (Auto) 14.4 H, Eos % (Auto) 0.7, Baso % (Auto) 0.5, Absolute Neuts (auto) 3.1, Absolute Lymphs (auto) 0.51 L, Nucleated RBC % 0, Differential Comment SCANNED, Diff Path Review July, Target Cells 1+ 04/05/21 04:22: Sodium 139, Potassium 4.1, Chloride 105, Carbon Dioxide 28.0, Anion Gap 6, BUN 57 H, Creatinine 1.60 H, Estim Creat Clear Calc 38.19, Est GFR (MDRD) Af Amer 42 L, Est GFR (MDRD) Non-Af 35 L, BUN/Creatinine Ratio 35.6 H, Glucose 82, Calcium 7.6 L, Total Bilirubin 0.70, AST 26, ALT 13, Alkaline Phosphatase 496 H, Troponin I High Sens 20, Total Protein 6.2 L, Albumin 1.7 L, Globulin 4.5 H, Albumin/Globulin Ratio 0.4 L, Triglycerides 66, Cholesterol 57, LDL Cholesterol 22, VLDL Cholesterol 13, HDL Cholesterol 22 L, TSH 6.08 H 04/05/21 04:22: Free T4 0.91 04/05/21 06:42: POC Glucose 96 Micro: Microbiology 04/04/21 17:48 Nasal Secretion SARS-CoV-2 Antigen (Rapid) - Final Radiography Diagnostic Testing: Radiology Impression Chest X-Ray 04/04/21 18:22 IMPRESSION: Pulmonary findings appear worse. Electronically Signed: Sergio Deleon MD at 18:58 EST , Chest X-Ray 04/05/21 05:55 IMPRESSION: Findings in keeping with mild degree of CHF with the blunting of the right costophrenic angle and bibasilar atelectasis. Electronically Signed: Primo Franklin MD at 9:05 EST , Physical Exam Const alert Constitutional Narrative: mildly drowsy but lethargic Exam Limitations: no limitations HEENT head/scalp atraumatic and moist oral mucous membranes Head and Scalp: normocephalic Eyes PERRL, EOMs intact bilaterally and conjunctivae normal Neck no lymphadenopathy Resp Resp Narrative: mildly diminished breath sounds bibasally, on 3L of oxygen. No wheezes or crackles. Cardio regular rate, regular rhythm, S1 normal heart sound, S2 normal heart sound and no murmurs GI normal to inspection, nondistended, normoactive bowel sounds Extremity Extremity Narrative: left AKA.Right foot has some toes amputated. Peripheral Pulses: Yes pulses 2+ throughout Skin Skin Narrative: has multiple superficial ulcerations over face, upper and lower extremities in various stages of healing; appears to be from incessant picking. left AKA stump also has superficial, healing ulcers. Neuro oriented x3 and CN's II-XII intact bilaterally Sensorium / Orientation: awake and alert Psych Psych Narrative: flat affect Assessment & Plan Assessment/Plan (1) CHF exacerbation: QUALIFIERS: Heart failure type: unspecified Qualified Code(s): I50.9 - Heart failure, unspecified (2) ALICIA (acute kidney injury): PLAN: #acute heart failure of unknown EF * on IV lasix * still quite edematous * monitor intake and output * fluid restriction to 1500cc daily * 2D echo done and pending. * #Acute hypoxic respiratory failure due to acute heart failure * on 3L of oxygen by NV * titrate oxygen to maintain sats >90% * being diuresed with IV lasix. She also has chronic COPD, so this may have contributed to shortness of breath as well, though tells me she was only put on Lasix about 3 days prior to admission. * 2D echo done and read is pending. * #Acute on chronic anemia * Hb today is 7.5. Was 8 on admission * baselline seems to be ~ 8. * transfuse if Hb <7 * check iron panel and stool for occult blood. * #ALICIA on CKD stage III: Creatinine was 1.74 on admission with a baseline of 1- 1.2. Creatinine today is down to 1.6 #Type 2 diabetes mellitus with associated peripheral neuropathy * On Lantus. Insulin sliding scale. Accu-Cheks AC at bedtime. * Has had some amputations of her right toes and is also s/p left AKA * #Hypertension: on metoprolol and hydralazine. IV hydralazine as needed #Hyperlipidemia: On statin #Peripheral artery disease status post bilateral lower extremity stenting: On aspirin, Plavix and statin #CAD s/p CABG x3 and PCI * tells me that after she had her leg amputated about 3 months ago, he was told that she would need cardiac status as well but this has not been done yet and he is unsure why. Amputation was done at [facility]. * On aspirin, Plavix, statin. * #Anxiety and depression; on fluoxetine and hydroxyzine DVT prophylaxis: lovenox. SCDs. * Charges/Coding Visit Charges Inpatient E&M: 12148 [facility] Hosp L3
[2021-04-05 11:40] LABS: Bedside Glucose 133 mg/dL (70-110)
--- NOTE | 2021-04-05 12:01 | CASEMGMT ---
Patient is from [place]. SHERRIE faxed updates to [facility] with Radha. SHERRIE spoke with [facility] and patient can return when ready. Patient does not need a COVID test prior to returning. Tamar HOLLINGSWORTH
--- NOTE | 2021-04-05 12:33 | WOUNDNOTE ---
wound photo: left arm
--- NOTE | 2021-04-05 12:33 | WOUNDNOTE ---
wound photo: right arm
--- NOTE | 2021-04-05 12:34 | WOUNDNOTE ---
wound photo: right lower leg
--- NOTE | 2021-04-05 12:35 | WOUNDNOTE ---
wound photo: right foot
--- NOTE | 2021-04-05 12:36 | WOUNDNOTE ---
wound photo: left stump
--- NOTE | 2021-04-05 12:36 | WOUNDNOTE ---
wound photo: right foot
[2021-04-05 12:44] LABS: Pathologist Review Reviewed
--- NOTE | 2021-04-05 13:07 | CASEMGMT ---
SHERRIE called patient's and the plan is for patient to return to [facility] at discharge. Green sheet on patient's chart. Plan: d/c back to [facility] under intermediate level of care. Tamar HOLLINGSWORTH
--- NOTE | 2021-04-05 14:04 | CASEMGMT ---
RN CM NOTE: Pt qualifies for Palliative referral per [facility] Palliative screening tool. Dr Dc made aware. No order for referral received. Jorge GRANADOS RN CM
[2021-04-05] MEDS: Juven (unflavored) Packet 1 PACKET PO (17:00)
[2021-04-05 17:05] LABS: Bedside Glucose 117 mg/dL (70-110)
[2021-04-05] MEDS: Atorvastatin Calcium 40 MG Tablet PO (22:20)
[2021-04-05] MEDS: levoFLOXacin 500 MG Tablet PO (22:20)
[2021-04-05 22:36] LABS: Bedside Glucose 119 mg/dL (70-110)
[2021-04-06 06:00] VITALS: PULSE 81
[2021-04-06] MEDS: busPIRone 5 MG Tablet 7.5 MG PO (06:00)
[2021-04-06] MEDS: hydrALAZINE 25 MG Tablet PO (06:00)
[2021-04-06] MEDS: Gabapentin 600 MG Tablet PO (06:30)
[2021-04-06] MEDS: hydrOXYzine PAM 25 MG Capsule PO (06:30)
[2021-04-06] MEDS: Nystatin Powder 15gm Bottle 1 APPLIC TOPICAL ×3 (06:30→22:00)
[2021-04-06] MEDS: 0.9% Saline Lock 10 ML Syringe IV ×2 (09:30→17:00)
[2021-04-06 10:00] VITALS: PULSE 80
[2021-04-06] MEDS: Furosemide 40 MG/4 ML Vial IV ×2 (10:00→17:10)
[2021-04-06] MEDS: Menthol/Lanolin/Calamine/Znox 113 GM Tube 1 APPLIC TOPICAL ×4 (10:00→22:30)
[2021-04-06] MEDS: Juven (unflavored) Packet 1 PACKET PO (10:00)
[2021-04-06] MEDS: FLUoxetine 20 MG Capsule PO (10:00)
[2021-04-06] MEDS: Clopidogrel Bisulfate 75 MG Tablet PO (10:00)
[2021-04-06] MEDS: Ascorbic Acid 500 MG Tablet PO (10:00)
[2021-04-06] MEDS: Metoprolol(XL)Succ 25 MG Tablet PO (10:00)
[2021-04-06] MEDS: Loratadine 10 MG Tablet PO (10:00)
[2021-04-06] MEDS: Ferrous Sulfate 325 MG Tablet PO (10:00)
[2021-04-06] MEDS: Multivitamins,Ther W-Minerals Tablet 1 TABLET PO (10:00)
[2021-04-06] MEDS: Potassium Chloride Oral Tablet 20 MEQ 40 MEQ PO (10:00)
[2021-04-06] MEDS: Aspirin 81 MG TAB.CHEW PO (10:00)
[2021-04-06] MEDS: Potassium Chloride Oral Tablet 20 MEQ (10:00)
[2021-04-06] MEDS: Potassium Chloride Oral Tablet 20 MEQ PO (10:00)
[2021-04-06] MEDS: Insulin Lispro 100 UNIT/ML INSULN.PEN SC ×2 (11:20→17:10)
--- NOTE | 2021-04-06 14:20 | PN_ITS ---
DATE OF SERVICE04/06/2021 SUBJECTIVE: Patient seen and examined. She was quite drowsy and would wake up but would not really answer any questions. Unable to do review of systems. Nurse, patient also noted to be aspirating. She has otherwise remained hemodynamically stable. PHYSICAL EXAMINATION Constitutional Narrative: drowsy but arousable. Exam Limitations: no limitations HEENT head/scalp atraumatic and moist oral mucous membranes Head and Scalp: normocephalic Eyes PERRL, EOMs intact bilaterally and conjunctivae normal Neck no lymphadenopathy Resp Resp Narrative: mildly diminished breath sounds bibasally, on 3L of oxygen. No wheezes or crackles. Cardio regular rate, regular rhythm, S1 normal heart sound, S2 normal heart sound and no murmurs GI normal to inspection, nondistended, normoactive bowel sounds Extremity Extremity Narrative: left AKA.Right foot has last 2 toes amputated Peripheral Pulses: Yes pulses 2+ throughout Skin Skin Narrative: has multiple superficial ulcerations over face, upper and lower extremities in various stages of healing; appears to be from incessant picking. left AKA stump also has superficial, healing ulcers. Neuro oriented x3 and CN's II-XII intact bilaterally Sensorium / Orientation: awake and alert Psych Psych Narrative: flat affect Assessment/Plan (1) CHF exacerbation: QUALIFIERS: Heart failure type: unspecified Qualified Code(s): I50.9 - Heart failure, unspecified (2) ALICIA (acute kidney injury) PLAN: #acute heart failure of unknown EF on IV lasix monitor intake and output fluid restriction to 1500cc daily 2D echo done and pending. #Acute hypoxic respiratory failure due to acute heart failure on 3L of oxygen by ME titrate oxygen to maintain sats >90% being diuresed with IV lasix. She also has chronic COPD, so this may have contributed to shortness of breath as well, though tells me she was only put on oxygenabout 3 days prior to admission. 2D echo done and read is pending. #Acute on chronic anemia Hb today is 7.6. Was 8 on admission baseline seems to be ~ 8. transfuse if Hb <7 #ALICIA on CKD stage III: Creatinine was 1.74 on admission with a baseline of 1-1.2. Creatinine today is down to 1.6 #Type 2 diabetes mellitus with associated peripheral neuropathy On Lantus. Insulin sliding scale. Accu-Cheks AC at bedtime. a s/p left AKA #Hypertension: on metoprolol and hydralazine. IV hydralazine as needed #Hyperlipidemia: On statin #Peripheral artery disease status post bilateral lower extremity stenting: On aspirin, Plavix and statin #CAD s/p CABG x3 and PCI On aspirin, Plavix, statin. #Anxiety and depression: on fluoxetine and hydroxyzine DVT prophylaxis: lovenox. SCDs. BIlling code: Inpatient follow up level 3- [id number]
[2021-04-06 19:03] LABS: Anion Gap 9 (5-15); BUN 53 mg/dL (7-18); BUN/Creat Ratio 36.1 RATIO (10-20); Calcium,Total 7.8 mg/dL (8.5-10.1); Chloride 105 mmol/L (98-107); Creatinine, Serum 1.47 mg/dL (0.55-1.02); EST Glomerular Filtration Rate 39 mL/min (>60); Est Glom Filt Rate - Afr Amer 47 mL/min (>60); Estimated Creatinine Clearance 41.57 ml/min; Glucose 143 mg/dL (74-106); Potassium 3.3 mmol/L (3.5-5.1); Sodium Level 142 mmol/L (136-145)
[2021-04-06 19:15] LABS: Absolute Lymphocyte Count 0.73 X10^3/uL (0.83-4.51); Absolute Neutrophil Count 3.6 X10^3/uL (2.0-7.7); Basophil# 0.01 X10^3/uL; Basophil% 0.2 % (0-1); Eosinophil# 0.02 X10^3/uL; Eosinophils% 0.4 % (0-5); Hematocrit 26.3 % (37-47); Hemoglobin 7.6 g/dL (12.0-15.0); Lymphocyte # 0.73 X10^3/ul (0.83-4.51); Lymphocyte % 14.5 % (19-41); Mean Corp Hgb Conc 28.9 g/dL (32-36); Mean Corpuscular Hgb 24.2 pg (27.0-32.0); Mean Corpuscular Volume 83.8 fL (81-99); Monocyte# 0.59 X10^3/uL; Monocyte% 11.7 % (0-10); NRBC Flagged by Analyzer 0 % (0-5); Neutrophil # 3.64 X10^3/uL (2.7-7.7); Neutrophil % 72.4 % (47-70); Platelet Count 226 K/mm3 (150-450); RBC Distribution Width CV 16.2 % (11.6-14.6); RBC Distribution Width SD 49.1 fl (35.1-43.9); Red Blood Count 3.14 M/mm3 (4.2-5.4)
[2021-04-06 19:24] LABS: Bedside Glucose 132 mg/dL (70-110)
[2021-04-06 19:25] LABS: Bedside Glucose 165 mg/dL (70-110)
[2021-04-06 19:25] LABS: Bedside Glucose 195 mg/dL (70-110)
[2021-04-06 19:25] LABS: Allen Test Positive; Base Excess 4 mmol/L (-2 to +2); Bicarbonate 29.1 mmol/L (22-26); Blood Gas Specimen Type ART; O2 Delivery Device Cannula; PO2 87 mmHG (75-100); SITE R Radial; SO2 97 % (95-99); Total Carbon Dioxide 31 mmol/L; pCO2 46.1 mmHg (35-45); pH 7.41 (7.35-7.45)
[2021-04-06] MEDS: Enoxaparin 40 MG/0.4 ML Syringe SC (22:00)
[2021-04-06 22:16] LABS: Bedside Glucose 149 mg/dL (70-110)
[2021-04-07] VITALS (15 sets, daily range): BP systolic 128–144; BP diastolic 56–71; PULSE 73–81; RESP 14–18; TEMP 36.3–37.1; O2SAT 91–99
[2021-04-07 05:53] LABS: Absolute Lymphocyte Count 0.73 X10^3/uL (0.83-4.51); Basophil# 0.01 X10^3/uL; Basophil% 0.2 % (0-1); Eosinophil# 0.04 X10^3/uL; Eosinophils% 0.7 % (0-5); Hemoglobin 7.8 g/dL (12.0-15.0); Lymphocyte # 0.73 X10^3/ul (0.83-4.51); Lymphocyte % 13.4 % (19-41); Mean Corp Hgb Conc 27.9 g/dL (32-36); Mean Corpuscular Hgb 24.5 pg (27.0-32.0); Mean Corpuscular Volume 88.1 fL (81-99); Mean Platelet Vol. 8.8 fl (6.2-12.0); Monocyte# 0.61 X10^3/uL; Monocyte% 11.2 % (0-10); NRBC Flagged by Analyzer 0 % (0-5); Neutrophil # 4.02 X10^3/uL (2.7-7.7); Neutrophil % 73.9 % (47-70); Platelet Count 204 K/mm3 (150-450); RBC Distribution Width CV 16.6 % (11.6-14.6); RBC Distribution Width SD 53.2 fl (35.1-43.9); Red Blood Count 3.18 M/mm3 (4.2-5.4); White Blood Count 5.4 K/mm3 (4.4-11.0)
[2021-04-07] MEDS: Nystatin Powder 15gm Bottle 1 APPLIC TOPICAL ×3 (06:31→21:50)
[2021-04-07 06:46] LABS: Bedside Glucose 159 mg/dL (70-110)
[2021-04-07 07:27] LABS: Anion Gap 7 (5-15); BUN 45 mg/dL (7-18); BUN/Creat Ratio 33.6 RATIO (10-20); Calcium,Total 7.8 mg/dL (8.5-10.1); Chloride 106 mmol/L (98-107); Creatinine, Serum 1.34 mg/dL (0.55-1.02); EST Glomerular Filtration Rate 43 mL/min (>60); Est Glom Filt Rate - Afr Amer 52 mL/min (>60); Glucose 149 mg/dL (74-106); Potassium 2.7 mmol/L (3.5-5.1); Sodium Level 145 mmol/L (136-145)
[2021-04-07] MEDS: Potassium Chloride 10mEq/100mL 10 MEQ/100 ML IV.SOLN. 100 MEQ IV BOLUS ×4 (10:32→14:33)
[2021-04-07] MEDS: Loratadine 10 MG Tablet PO (10:38)
[2021-04-07] MEDS: Enoxaparin 40 MG/0.4 ML Syringe SC ×3 (10:38→21:48)
[2021-04-07] MEDS: Metoprolol(XL)Succ 25 MG Tablet PO (10:39)
[2021-04-07] MEDS: Clopidogrel Bisulfate 75 MG Tablet PO (10:41)
[2021-04-07] MEDS: Aspirin 81 MG TAB.CHEW PO (10:41)
[2021-04-07] MEDS: FLUoxetine 20 MG Capsule PO (10:41)
[2021-04-07] MEDS: Menthol/Lanolin/Calamine/Znox 113 GM Tube 1 APPLIC TOPICAL ×4 (10:42→21:49)
--- NOTE | 2021-04-07 10:42 | PN.HOSP_ITS ---
Subjective Subjective Patient seen and examined. He was much more alert today. She had no complaints. She asked for a glass of water. Patient has been put n.p.o. because of concerns about dysphagia and possible aspiration when she was more confused. She is now on 3 L of oxygen. Hemoglobin today 7.8. Potassium is 2.7 today. Objective Data Objective Data Vital Signs: Vital Signs Temp Pulse Resp BP Pulse Ox 98.8 F 77 16 129/64 H 98 04/07/21 10:13 04/07/21 10:13 04/07/21 10:13 04/07/21 10:13 04/07/21 10:13 Oxygen Flow Rate (L/min) 3 Oxygen Delivery Method Nasal Cannula Weight: 214 lb 8.156 oz Body Mass Index (BMI) 34.9 Intake & Output: Intake and Output for Last 24 Hours 04/05/21 04/06/21 04/07/21 23:59 23:59 23:59 Intake Total 830 / 830 360 / 360 Output Total 2950 / 2950 4150 / 4150 900 / 900 Balance -2120 / -2120 -3790 / -3790 -900 / -900 Lab / Micro Data Result Diagrams: 04/07/21 04:20 04/07/21 04:20 Labs: Laboratory Results - last 24 hr 04/06/21 04:08: WBC 5.0, RBC 3.14 L, Hgb 7.6 L, Hct 26.3 L, MCV 83.8, MCH 24.2 L , MCHC 28.9 L D, RDW Std Deviation 49.1 H, RDW Coeff of New 16.2 H, Plt Count 226, MPV 9.0, Immature Gran % (Auto) 0.800, Neut % (Auto) 72.4 H, Lymph % (Auto) 14.5 L, Gage % (Auto) 11.7 H, Eos % (Auto) 0.4, Baso % (Auto) 0.2, Absolute Neuts (auto) 3.6, Absolute Lymphs (auto) 0.73 L, Nucleated RBC % 0 04/06/21 04:08: Sodium 142, Potassium 3.3 L, Chloride 105, Carbon Dioxide 28.0, Anion Gap 9, BUN 53 H, Creatinine 1.47 H, Estim Creat Clear Calc 41.57, Est GFR (MDRD) Af Amer 47 L, Est GFR (MDRD) Non-Af 39 L, BUN/Creatinine Ratio 36.1 H, Glucose 143 H, Calcium 7.8 L 04/06/21 06:31: POC Glucose 132 H 04/06/21 11:13: POC Glucose 195 H 04/06/21 17:06: POC Glucose 165 H 04/06/21 22:11: POC Glucose 149 H 04/07/21 04:20: WBC 5.4, RBC 3.18 L, Hgb 7.8 L, Hct 28.0 L, MCV 88.1 D, MCH 24.5 L, MCHC 27.9 L, RDW Std Deviation 53.2 H, RDW Coeff of New 16.6 H, Plt Count 204, MPV 8.8, Immature Gran % (Auto) 0.600, Neut % (Auto) 73.9 H, Lymph % (Auto) 13.4 L, Gage % (Auto) 11.2 H, Eos % (Auto) 0.7, Baso % (Auto) 0.2, Absolute Neuts (auto) 4.0, Absolute Lymphs (auto) 0.73 L, Nucleated RBC % 0 04/07/21 04:20: Sodium 145, Potassium 2.7 L*, Chloride 106, Carbon Dioxide 32.0, Anion Gap 7, BUN 45 H, Creatinine 1.34 H, Estim Creat Clear Calc 45.60, Est GFR (MDRD) Af Amer 52 L, Est GFR (MDRD) Non-Af 43 L, BUN/Creatinine Ratio 33.6 H, Glucose 149 H, Calcium 7.8 L 04/07/21 06:30: POC Glucose 159 H Micro: Microbiology 04/04/21 17:48 Nasal Secretion SARS-CoV-2 Antigen (Rapid) - Final ABG Data ABG results: ABG 04/06/21 11:56 Specimen Type ART Sample Site R Radial pH 7.41 Bicarbonate Actual 29.1 H Total CO2 31 Base Excess 4 H O2 Saturation 97 ABG pCO2 46.1 H ABG pO2 87 Melchor Test Positive O2 Delivery Device Cannula Liter Flow 4.0 Physical Exam Const alert Constitutional Narrative: much more alert and communicative today. Exam Limitations: no limitations HEENT head/scalp atraumatic and moist oral mucous membranes Head and Scalp: normocephalic Eyes PERRL, EOMs intact bilaterally and conjunctivae normal Neck no lymphadenopathy Resp Resp Narrative: mildly diminished breath sounds bibasally, on 3L of oxygen. No wheezes or crackles. Cardio regular rate, regular rhythm, S1 normal heart sound, S2 normal heart sound and no murmurs GI normal to inspection, nondistended, normoactive bowel sounds Extremity Extremity Narrative: left AKA.Right foot has last 2 toes amputated Peripheral Pulses: Yes pulses 2+ throughout Skin Skin Narrative: has multiple superficial ulcerations over face, upper and lower extremities in various stages of healing; appears to be from incessant picking. left AKA stump also has superficial, healing ulcers. Neuro oriented x3 and CN's II-XII intact bilaterally Sensorium / Orientation: awake and alert Psych Psych Narrative: flat affect Assessment & Plan Assessment/Plan (1) CHF exacerbation: QUALIFIERS: Heart failure type: unspecified Qualified Code(s): I50.9 - Heart failure, unspecified (2) ALICIA (acute kidney injury): PLAN: #acute heart failure with preserved EF * on IV lasix; switch to PO lasix today * still quite edematous * monitor intake and output * fluid restriction to 1500cc daily * 2D echo showed EF of 55% with stage II diastolic dysfunction and no regional wall motion abnormalities noted with mildly enlarged left atrium and bubble study negative for [id number] interatrial shunt. Pulmonary artery systolic pressure was 50 to 55 mmHg and mild aortic stenosis. * #Acute hypoxic respiratory failure due to acute heart failure * on 3L of oxygen by CT * titrate oxygen to maintain sats >90% * being diuresed with IV lasix. She also has chronic COPD, so this may have contributed to shortness of breath as well, though tells me she was only put on Lasix about 3 days prior to admission. * 2D echo as above. * #Chronic anemia * Hb today is 7.8. Was 8 on admission * baseline seems to be ~ 8. * transfuse if Hb <7 * check iron panel and stool for occult blood. * #ALICIA on CKD stage III: Creatinine was 1.74 on admission with a baseline of 1- 1.2. Creatinine today is down to 1.34 #Hypokalemia: Potassium is 2.7 today will replace aggressively. Likely due to diuresis with Lasix. #Type 2 diabetes mellitus with associated peripheral neuropathy * On Lantus. Insulin sliding scale. Accu-Cheks AC at bedtime. * Has had some amputations of her right toes and is also s/p left AKA * #Hypertension: on metoprolol and hydralazine. IV hydralazine as needed #Hyperlipidemia: On statin #Peripheral artery disease status post bilateral lower extremity stenting: On aspirin, Plavix and statin #CAD s/p CABG x3 and PCI * On aspirin, Plavix, statin. * #Anxiety and depression; on fluoxetine and hydroxyzine DVT prophylaxis: lovenox. SCDs. * Charges/Coding Visit Charges Inpatient E&M: 49711 Subs Hosp L2
[2021-04-07] MEDS: Furosemide 40 MG/4 ML Vial IV (10:43)
[2021-04-07] MEDS: Ascorbic Acid 500 MG Tablet PO (10:46)
[2021-04-07] MEDS: Potassium Chloride Oral Tablet 20 MEQ PO ×2 (10:47→21:48)
[2021-04-07] MEDS: 0.9% Saline Lock 10 ML Syringe IV (10:48)
[2021-04-07] MEDS: Insulin Lispro 100 UNIT/ML INSULN.PEN SC ×5 (11:50→22:05)
[2021-04-07 12:05] LABS: Bedside Glucose 168 mg/dL (70-110)
[2021-04-07] MEDS: hydrOXYzine PAM 25 MG Capsule PO ×2 (14:35→21:47)
[2021-04-07] MEDS: hydrALAZINE 25 MG Tablet PO ×2 (14:36→21:48)
[2021-04-07] MEDS: Gabapentin 600 MG Tablet PO ×2 (14:36→21:48)
[2021-04-07] MEDS: busPIRone 5 MG Tablet 7.5 MG PO ×2 (14:36→21:49)
[2021-04-07] MEDS: Juven (unflavored) Packet 1 PACKET PO (16:58)
[2021-04-07] MEDS: Furosemide 40 MG Tablet PO (17:03)
[2021-04-07 17:05] LABS: Bedside Glucose 165 mg/dL (70-110)
[2021-04-07] MEDS: Atorvastatin Calcium 40 MG Tablet PO (21:48)
[2021-04-07] MEDS: levoFLOXacin 500 MG Tablet PO (21:48)
[2021-04-07 21:56] LABS: Bedside Glucose 162 mg/dL (70-110)
[2021-04-08] VITALS (10 sets, daily range): BP systolic 124–133; BP diastolic 56–68; PULSE 74–81; RESP 16–18; TEMP 36.4–36.6; O2SAT 90–100
[2021-04-08] MEDS: Gabapentin 600 MG Tablet PO ×2 (05:18→14:08)
[2021-04-08] MEDS: hydrOXYzine PAM 25 MG Capsule PO ×2 (05:18→14:08)
[2021-04-08] MEDS: busPIRone 5 MG Tablet 7.5 MG PO ×2 (05:19→14:08)
[2021-04-08] MEDS: Nystatin Powder 15gm Bottle 1 APPLIC TOPICAL ×2 (05:19→14:09)
[2021-04-08] MEDS: hydrALAZINE 25 MG Tablet PO ×2 (05:19→14:08)
[2021-04-08 05:56] LABS: Absolute Lymphocyte Count 1.23 X10^3/uL (0.83-4.51); Basophil# 0.02 X10^3/uL; Basophil% 0.3 % (0-1); Eosinophil# 0.26 X10^3/uL; Eosinophils% 3.6 % (0-5); Hematocrit 29.6 % (37-47); Hemoglobin 7.9 g/dL (12.0-15.0); Lymphocyte # 1.23 X10^3/ul (0.83-4.51); Lymphocyte % 17.1 % (19-41); Mean Corp Hgb Conc 26.7 g/dL (32-36); Mean Corpuscular Hgb 23.6 pg (27.0-32.0); Mean Corpuscular Volume 88.4 fL (81-99); Mean Platelet Vol. 9.3 fl (6.2-12.0); Monocyte# 0.64 X10^3/uL; Monocyte% 8.9 % (0-10); NRBC Flagged by Analyzer 0 % (0-5); Neutrophil % 69.5 % (47-70); Platelet Count 194 K/mm3 (150-450); RBC Distribution Width CV 16.4 % (11.6-14.6); RBC Distribution Width SD 52.5 fl (35.1-43.9); Red Blood Count 3.35 M/mm3 (4.2-5.4); White Blood Count 7.2 K/mm3 (4.4-11.0)
[2021-04-08 06:14] LABS: Anion Gap 5 (5-15); BUN 43 mg/dL (7-18); BUN/Creat Ratio 32.8 RATIO (10-20); Calcium,Total 7.6 mg/dL (8.5-10.1); Chloride 103 mmol/L (98-107); Creatinine, Serum 1.31 mg/dL (0.55-1.02); EST Glomerular Filtration Rate 44 mL/min (>60); Est Glom Filt Rate - Afr Amer 53 mL/min (>60); Estimated Creatinine Clearance 46.64 ml/min; Glucose 129 mg/dL (74-106); Potassium 3.2 mmol/L (3.5-5.1); Sodium Level 140 mmol/L (136-145)
[2021-04-08] MEDS: Menthol/Lanolin/Calamine/Znox 113 GM Tube 1 APPLIC TOPICAL ×2 (08:18→14:09)
[2021-04-08 08:26] LABS: Bedside Glucose 134 mg/dL (70-110)
[2021-04-08 09:38] LABS: Potassium 3.3 mmol/L (3.5-5.1)
--- NOTE | 2021-04-08 09:39 | PCM.TXEXTCAR ---
Diet 04/08/21 09:22 Diet: Cardiac - Heart Healthy Food consistency:: Mechanical (Minced/Moist) Liquid Consistency:: Regular/Thin Dietary Modifications:: Sodium Restricted Is pt able to select menu?: Yes Diet Comments: small bites, small sips, slow rate, HOB @ 90 degrees, distant supervision Routine Orders/Code Status O2 Liters per Minute: 3 O2 Frequency: Continuous Routine Lab Work: CBC and BMP Code Status: Full Code Wound(s) Right leg: Wound Type: scabbed areas Dressing Change: Adaptic LUE: Wound Type: scattered scabbed areas from picking Dressing Change: Adaptic Right thigh: Wound Type: Stasis Ulcer Right foot: Wound Type: Neuropathic/Diabetic Foot Ulcer Dressing Change: Dry Sterile Dressing RUE: Wound Type: scattered open areas from picking Dressing Change: Adaptic right heel: Wound Type: Neuropathic/Diabetic Foot Ulcer Dressing Change: Dry Sterile Dressing Face: Wound Type: scattered scabs from picking Left stump: Wound Type: healed incision with small scattered scabs Therapies Weight Bearing: Full weight bearing Extremity Affected:: Left Lower Physical Therapy: Eval and Treat Occupational Therapy: Eval and Treat Speech Therapy: Eval and Treat Problem/Diagnosis (1) CHF exacerbation: Status: Chronic (2) ALICIA (acute kidney injury): Status: Acute Allergies/Procedures Done in Hospital Allergies shellfish derived Allergy (Verified 04/04/21 16:34) Anaphylaxis Type of Care/Length of Stay Estimated LOS: More Than 30 Days Type of Care Needed: Intermediate Rehab Potential: Poor Prognosis: Fair Additional Orders/Day of Discharge Additional Orders: Please consider Palliative Care referral Day of Discharge: 04/08/21 Dietary and Speech Recommendations Dietitian Recommendations/Changes: Will change diet to 1800 foster Cardiac / Sodium restricted Rec fluid restriction if indicated Will order Larry bid to help w/ wound healing Discharge Plan Admission Admit Date/Time: 04/04/21 20:27 Primary Reason for Your Visit: CHF Attending Provider: Brendan Moses Primary Care Provider: Ross Goldsmith Discharge Orders/Prescriptions Prescriptions: New furosemide 40 mg Tablet 40 mg PO BIDLX Qty: 0 RF: 0 acetaminophen [Tylenol] 325 mg Tablet 650 mg PO Q4H PRN PRN (Reason: Fever, pain 1-10/10) Qty: 0 RF: 0 albuterol sulfate 2.5 mg /3 mL (0.083 %) Solution For Nebulization 2.5 mg inhalation Q2H PRN PRN (Reason: Dyspnea, wheezing) Qty: 0 RF: 0 menthol-zinc oxide [Calmoseptine] 0.44-20.6 % Ointment 1 applic topical 4X/DAY Qty: 0 RF: 0 Cepacol Sore Throat (estefania-men) 15-3.6 mg Lozenge 1 nelly mucous membrane Q2H PRN PRN (Reason: SORE THROAT) Qty: 0 RF: 0 Larry (with collagen) 7-7-1.5 gram Powder In Packet 1 packet PO BIDCM Qty: 0 RF: 0 Continued metoprolol succinate 25 mg tablet extended release 24 hr 25 mg PO DAILY RF: 0 atorvastatin 40 MG tablet 40 mg PO DAILY RF: 0 clopidogrel 75 MG tablet 75 mg PO DAILY RF: 0 aspirin 81 MG tablet,chewable 81 mg PO DAILY RF: 0 gabapentin 600 mg tablet 600 mg PO TID RF: 0 hydralazine 25 mg Tablet 25 mg PO TID RF: 0 melatonin 3 mg Tablet 3 mg PO QHS RF: 0 famotidine 20 mg Tablet 20 mg PO BID RF: 0 ascorbic acid (vitamin C) 500 mg Tablet 500 mg PO DAILY RF: 0 ferrous sulfate 325 mg (65 mg iron) Tablet 325 mg PO DAILY RF: 0 fluoxetine 20 mg Tablet 20 mg PO DAILY RF: 0 Humulin R Regular U-100 Insuln 100 unit/mL Solution 5 unit SUBCUT TIDCM RF: 0 hydroxyzine HCl 25 mg Tablet 25 mg PO QHS RF: 0 multivitamin with minerals Tablet 1 tab PO DAILY RF: 0 loratadine 10 mg Tablet 10 mg PO DAILY RF: 0 Lantus Solostar U-100 Insulin 100 unit/mL (3 mL) insulin pen 13 unit SC DAILY RF: 0 buspirone 7.5 mg TID RF: 0 Changed potassium chloride [Klor-Con M20] 20 mEq Tablet,Er Particles/Crystals 40 meq PO BID Qty: 0 RF: 0 Discontinued furosemide 20 mg Tablet 60 mg PO DAILY RF: 0 levofloxacin 500 mg tablet 500 mg QHS RF: 0 Referrals / Follow Up: Ross Goldsmith MD [Primary Care Provider] - Within 1 Week Disposition Disposition (needs filled in before D/C Order can be placed): NonSkilled NH/Intermed Care
[2021-04-08] MEDS: Ferrous Sulfate 325 MG Tablet PO (09:53)
[2021-04-08] MEDS: Juven (unflavored) Packet 1 PACKET PO (09:53)
[2021-04-08] MEDS: Aspirin 81 MG TAB.CHEW PO (09:54)
[2021-04-08] MEDS: Insulin Lispro 100 UNIT/ML INSULN.PEN SC ×4 (09:54→16:07)
[2021-04-08] MEDS: Multivitamins,Ther W-Minerals Tablet 1 TABLET PO (09:55)
[2021-04-08] MEDS: Potassium Chloride Oral Tablet 20 MEQ PO (09:55)
[2021-04-08] MEDS: Loratadine 10 MG Tablet PO (09:55)
[2021-04-08] MEDS: Furosemide 40 MG Tablet PO (09:56)
[2021-04-08] MEDS: FLUoxetine 20 MG Capsule PO (09:56)
[2021-04-08] MEDS: Enoxaparin 40 MG/0.4 ML Syringe SC (09:56)
[2021-04-08] MEDS: Potassium Chloride Oral Tablet 20 MEQ 40 MEQ PO (09:56)
[2021-04-08] MEDS: Clopidogrel Bisulfate 75 MG Tablet PO (09:56)
[2021-04-08] MEDS: Ascorbic Acid 500 MG Tablet PO (09:57)
[2021-04-08] MEDS: Metoprolol(XL)Succ 25 MG Tablet PO (09:57)
--- NOTE | 2021-04-08 10:47 | CASEMGMT ---
SHERRIE faxed updates to [facility] with [facility]. SHERRIE also called [facility] and left her a message letting her know patient will likely be returning today. Tamar Wall MSW DARRICK
[2021-04-08 11:26] LABS: Bedside Glucose 161 mg/dL (70-110)
--- NOTE | 2021-04-08 11:59 | CHAPLAIN ---
Type of Pastoral Visit _x__ Initial Visit ___ Follow-up Visit ___ On-call Visit ___ General Patient Visit ___ Spiritual Assessment ___ Family Conference ___ Bereavement ___ Rapid Response ___ Code Blue ___ Other (describe below) Pastoral Care Referral From _x__ Patient ___ Family ___ Nurse ___ Physician ___ Securities And Real Estate Director ___ Rubber Production Machine Operator ___ Other (describe below) Sacrament/Intervention _x__ Active listening ___ Anointing ___ Religion ___ Bereavement ___ Communion ___ Neena exploration ___ ___ Life review _x__ Prayer ___ Reconciliation ___ Sacrament of Sick ___ Supportive presence ___ Wedding ___ Other (describe below) Pastoral Comments
--- NOTE | 2021-04-08 15:56 | PCM.DC.SUM ---
Providers Date of Admission: 04/04/21 Primary Care Physician: Dr. Ross Goldsmith MD Consultations 04/05/21 00:23 Consult: Onc/Wound/marketing traffic coordinator Routine Comment: Generalized wounds Reason for Consult:: wounds Reason For Visit: CHF EXACERBATION Diagnosis Discharge Diagnosis (1) CHF exacerbation: Status: Chronic Code(s): I50.9 - Heart failure, unspecified Qualifiers: Heart failure type: unspecified Qualified Code(s): I50.9 - Heart failure, unspecified (2) ALICIA (acute kidney injury): Status: Acute Code(s): N17.9 - Acute kidney failure, unspecified Medications at Discharge Home Medications aspirin 81 mg PO DAILY 12/16/18 atorvastatin 40 mg PO DAILY 12/16/18 clopidogrel 75 mg PO DAILY 12/16/18 metoprolol succinate 25 mg tablet,extended release 24 hr 25 mg PO DAILY 10/31/19 Humulin R Regular U-100 Insuln 5 unit SUBCUT TIDCM 02/07/21 Lantus Solostar U-100 Insulin 13 unit SC DAILY 02/07/21 ascorbic acid (vitamin C) 500 mg PO DAILY 02/07/21 famotidine 20 mg PO BID 02/07/21 ferrous sulfate 325 mg PO DAILY 02/07/21 fluoxetine 20 mg PO DAILY 02/07/21 gabapentin 600 mg PO TID 02/07/21 hydralazine 25 mg PO TID 02/07/21 hydroxyzine HCl 25 mg PO QHS 02/07/21 loratadine 10 mg PO DAILY 02/07/21 melatonin 3 mg PO QHS 02/07/21 multivitamin with minerals 1 tab PO DAILY 02/07/21 buspirone 7.5 mg TID 04/04/21 acetaminophen [Tylenol] 650 mg PO Q4H PRN PRN #0 tab 04/08/21 albuterol sulfate 2.5 mg INHALATION Q2H PRN PRN #0 ml 04/08/21 [id number] [Larry (with collagen)] 1 packet PO BIDCM #0 ea 04/08/21 benzocaine-menthol [Cepacol Sore Throat (estefania-men)] 1 nelly MUCOUS MEMBRANE Q2H PRN PRN #0 ea 04/08/21 furosemide 40 mg PO BIDLX #0 tab 04/08/21 menthol-zinc oxide [Calmoseptine] 1 applic TOPICAL 4X/DAY #0 g 04/08/21 potassium chloride [Klor-Con M20] 40 meq PO BID #0 tab 04/08/21 Hospital Course Procedures 2-D Echocardiogram Summary of Care Provided Minutes Spent on Discharge: 35 Hospital Course: Is a 60-year-old female presents with increased weight gain and dyspnea. Patient was found to be in acute exacerbation of CHF. Patient was started on IV furosemide and diuresed. Patient diuresed and was -9.8 L, weight went from 111.9 kg down to 97.1 kg. Patient will be discharged today and will continue with furosemide. Patient was taking 60 daily and that will be increased to 40 twice daily. Patient also needs to increase her potassium supplementation to 40 twice daily up from 20 twice daily she was hypokalemic. Patient did have some dysphagia seen by therapy who recommend small bites and sips and he petabyte 90 degrees with direct supervision for eating. [facility] be [facility] back [facility] condition. Physical Exam Const alert and no apparent distress Resp normal respiratory effort and no retractions Cardio regular rate, regular rhythm, S1 normal heart sound and S2 normal heart sound GI normal to inspection, nondistended, normoactive bowel sounds Weight / BMI Weight Weight: 97.1 kg Body Mass Index (BMI) 34.9 ABG / Lab / Microbiology Data Result Diagrams: 04/08/21 04:37 04/08/21 08:59 Laboratory: Laboratory Results - last 24 hr 04/07/21 16:54: POC Glucose 165 H 04/07/21 21:39: POC Glucose 162 H 04/08/21 04:37: WBC 7.2, RBC 3.35 L, Hgb 7.9 L, Hct 29.6 L, MCV 88.4, MCH 23.6 L, MCHC 26.7 L, RDW Std Deviation 52.5 H, RDW Coeff of New 16.4 H, Plt Count 194, MPV 9.3, Immature Gran % (Auto) 0.600, Neut % (Auto) 69.5, Lymph % (Auto) 17.1 L, [place] % (Auto) 8.9, Eos % (Auto) 3.6, Baso % (Auto) 0.3, Absolute Neuts (auto) 5.0, Absolute Lymphs (auto) 1.23, Nucleated RBC % 0 04/08/21 04:37: Sodium 140, Potassium 3.2 L, Chloride 103, Carbon Dioxide 32.0, Anion Gap 5, BUN 43 H, Creatinine 1.31 H, Estim Creat Clear Calc 46.64, Est GFR (MDRD) Af Amer 53 L, Est GFR (MDRD) Non-Af 44 L, BUN/Creatinine Ratio 32.8 H, Glucose 129 H, Calcium 7.6 L 04/08/21 08:02: POC Glucose 134 H 04/08/21 08:59: Potassium 3.3 L 04/08/21 11:21: POC Glucose 161 H Microbiology: Microbiology 04/04/21 19:55 Urine Catheter - Quach Urine Culture - Final Lactobacillus casei 04/04/21 17:48 Nasal Secretion SARS-CoV-2 Antigen (Rapid) - Final Meaningful Use Info Meaningful Use Diagnoses (Choose all that apply): CHF CHF JOE/ARB ordered at discharge?: No Reason JOE/ARB not ordered?: Worsening renal function Documented LVEF (%): 55 Discharge Plan Admission Admit Date/Time: 04/04/21 20:27 Primary Reason for Your Visit: CHF Attending Provider: Brendan Moses Primary Care Provider: Ross Goldsmith Discharge Orders/Prescriptions Prescriptions: New furosemide 40 mg Tablet 40 mg PO BIDLX Qty: 0 RF: 0 acetaminophen [Tylenol] 325 mg Tablet 650 mg PO Q4H PRN PRN (Reason: Fever, pain 1-10/10) Qty: 0 RF: 0 albuterol sulfate 2.5 mg /3 mL (0.083 %) Solution For Nebulization 2.5 mg inhalation Q2H PRN PRN (Reason: Dyspnea, wheezing) Qty: 0 RF: 0 menthol-zinc oxide [Calmoseptine] 0.44-20.6 % Ointment 1 applic topical 4X/DAY Qty: 0 RF: 0 Cepacol Sore Throat (estefania-men) 15-3.6 mg Lozenge 1 nelly mucous membrane Q2H PRN PRN (Reason: SORE THROAT) Qty: 0 RF: 0 Larry (with collagen) 7-7-1.5 gram Powder In Packet 1 packet PO BIDCM Qty: 0 RF: 0 Continued metoprolol succinate 25 mg tablet extended release 24 hr 25 mg PO DAILY RF: 0 atorvastatin 40 MG tablet 40 mg PO DAILY RF: 0 clopidogrel 75 MG tablet 75 mg PO DAILY RF: 0 aspirin 81 MG tablet,chewable 81 mg PO DAILY RF: 0 gabapentin 600 mg tablet 600 mg PO TID RF: 0 hydralazine 25 mg Tablet 25 mg PO TID RF: 0 melatonin 3 mg Tablet 3 mg PO QHS RF: 0 famotidine 20 mg Tablet 20 mg PO BID RF: 0 ascorbic acid (vitamin C) 500 mg Tablet 500 mg PO DAILY RF: 0 ferrous sulfate 325 mg (65 mg iron) Tablet 325 mg PO DAILY RF: 0 fluoxetine 20 mg Tablet 20 mg PO DAILY RF: 0 Humulin R Regular U-100 Insuln 100 unit/mL Solution 5 unit SUBCUT TIDCM RF: 0 hydroxyzine HCl 25 mg Tablet 25 mg PO QHS RF: 0 multivitamin with minerals Tablet 1 tab PO DAILY RF: 0 loratadine 10 mg Tablet 10 mg PO DAILY RF: 0 Lantus Solostar U-100 Insulin 100 unit/mL (3 mL) insulin pen 13 unit SC DAILY RF: 0 buspirone 7.5 mg TID RF: 0 Changed potassium chloride [Klor-Con M20] 20 mEq Tablet,Er Particles/Crystals 40 meq PO BID Qty: 0 RF: 0 Discontinued furosemide 20 mg Tablet 60 mg PO DAILY RF: 0 levofloxacin 500 mg tablet 500 mg QHS RF: 0 Referrals / Follow Up: Ross Goldsmith MD [Primary Care Provider] - Within 1 Week Disposition Disposition (needs filled in before D/C Order can be placed): NonSkilled NH/Intermed Care Charges/Coding Visit Charges Inpatient E&M: 10173 [facility] Hosp
[2021-04-08 16:20] LABS: Bedside Glucose 112 mg/dL (70-110)
--- NOTE | 2021-04-08 16:50 | CASEMGMT ---
Patient is ready for discharge back to [place]. SHERRIE arranged for patient to get picked up at 1800 via cot. SHERRIE faxed orders and transport time to [place] and [facility] with [facility]. SHERRIE also called [facility] and let her know tack picker time. SHERRIE notified RN, racing secretary, patient, and her of d/c and tack picker time. Plan: d/c back to [place] under intermediate level of care. [facility] transported via cot. Tamar [place]
== END 2021-04-08 17:40 | disposition intermediate care facility (04) | DRG 291 ==
LOC: ED 17:12 → PCU 20:36
PROVIDERS: Student in an Organized Health Care Education/Training Program; Admitting Provider Family Medicine; Emergency Provider Emergency Medicine; PCP Family Medicine
DX: I13.0 Hypertensive heart and chronic kidney disease with heart failure and stage 1 through stage 4 chronic kidney disease, or unspecified chronic kidney disease (principal); I50.31 Acute diastolic (congestive) heart failure; J96.21 Acute and chronic respiratory failure with hypoxia; N17.9 Acute kidney failure, unspecified; L97.519 Non-pressure chronic ulcer of other part of right foot with unspecified severity; E11.22 Type 2 diabetes mellitus with diabetic chronic kidney disease; D50.9 Iron deficiency anemia, unspecified; E11.42 Type 2 diabetes mellitus with diabetic polyneuropathy; J44.9 Chronic obstructive pulmonary disease, unspecified; E11.51 Type 2 diabetes mellitus with diabetic peripheral angiopathy without gangrene; E11.621 Type 2 diabetes mellitus with foot ulcer; Z79.4 Long term (current) use of insulin; Z89.612 Acquired absence of left leg above knee; N18.30 Chronic kidney disease, stage 3 unspecified; E78.5 Hyperlipidemia, unspecified; I25.10 Atherosclerotic heart disease of native coronary artery without angina pectoris; E87.6 Hypokalemia; F41.9 Anxiety disorder, unspecified; I25.2 Old myocardial infarction; F32.A Depression, unspecified; Z87.891 Personal history of nicotine dependence; Z79.82 Long term (current) use of aspirin; Z79.02 Long term (current) use of antithrombotics/antiplatelets; Z79.899 Other long term (current) drug therapy; E66.9 Obesity, unspecified; Z68.32 Body mass index [BMI] 32.0-32.9, adult
CPT/HCPCS: 36415; 36600; 71045; 80048; 80053; 80061; 81001; 82803; 82962; 83735; 83880; 84132; 84145; 84439; 84443; 84484; 85025; 87077; 87086; 87088; 87426; 92526; 92610; 93005; 93306; 97802; 99251; 99285; A4216; G0463; J1940

== ENCOUNTER 2021-05-07 10:05 | Emergency (ER) | payer MEDICARE, MEDICAID, SELFPAY ==
[2021-05-07 10:06] VITALS: BP 107/53; PULSE 73; RESP 10; TEMP 36.6; O2SAT 86; BMI 31.1
[2021-05-07 10:09] VITALS: O2SAT 93
--- NOTE | 2021-05-07 10:35 | EX.ED.DYSGE1 ---
HPI History of Present Illness Chief Complaint: Abn Labs Narrative Narrative: Patient presents from [facility] with low hemoglobin of 6.4. She states that she has had this in the past, last year she received a blood transfusion because she states that her body does not make enough red blood cells. She states that she has been tired and rundown for the last year. Of note, she presents to the emergency department with a [facility] DNR comfort care order signed earlier last month by Dr. Goldsmith nurse practitioner. She presents with laboratory work that shows her hemoglobin was 6.4. She also has an order for an outpatient infusion for anemia for 2 units of packed red blood cells to be transfused over 3 hours and IV Lasix 20 mg given in between for 30 minutes. Patient denies any chest pain. No other symptoms. She denies any dark, bloody stool or any vomiting. Reports no bleeding diathesis. 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 due to underlying condition, with necrosis of muscle Former tobacco use HTN (hypertension) Hyperlipidemia Lower extremity edema Myocardial infarct Neuropathy Noncompliance with diabetes treatment Obesity PAD (peripheral artery disease) PVD (peripheral vascular disease) Type 2 diabetes mellitus with diabetic polyneuropathy Ulcer of right foot with fat layer exposed Home Medications aspirin 81 mg PO DAILY 12/16/18 [History Last Taken 04/04/21] atorvastatin 40 mg PO DAILY 12/16/18 [History Last Taken 04/03/21] clopidogrel 75 mg PO DAILY 12/16/18 [History Last Taken 04/04/21] metoprolol succinate 25 mg tablet,extended release 24 hr 25 mg PO DAILY 10/31/19 [History Last Taken 04/04/21 10:00] Humulin R Regular U-100 Insuln 5 unit SUBCUT TIDCM 02/07/21 [History Last Taken 04/04/21 11:00] Lantus Solostar U-100 Insulin 13 unit SC DAILY 02/07/21 [History Last Taken 02/07/21] ascorbic acid (vitamin C) 500 mg PO DAILY 02/07/21 [History Last Taken 04/04/21] famotidine 20 mg PO BID 02/07/21 [History Last Taken 04/04/21 08:00] ferrous sulfate 325 mg PO DAILY 02/07/21 [History Last Taken 04/04/21] fluoxetine 20 mg PO DAILY 02/07/21 [History Last Taken 02/07/21] gabapentin 600 mg PO TID 02/07/21 [History Last Taken 04/04/21 12:00] hydralazine 25 mg PO TID 02/07/21 [History Last Taken 04/04/21 12:00] hydroxyzine HCl 25 mg PO QHS 02/07/21 [History Last Taken 04/03/21] loratadine 10 mg PO DAILY 02/07/21 [History Last Taken 04/04/21] melatonin 3 mg PO QHS 02/07/21 [History Last Taken 04/03/21] multivitamin with minerals 1 tab PO DAILY 02/07/21 [History Last Taken 04/04/21] buspirone 7.5 mg TID 04/04/21 [History Last Taken 04/04/21 12:00] acetaminophen [Tylenol] 650 mg PO Q4H PRN PRN #0 tab 04/08/21 [Rx Last Taken Unknown] albuterol sulfate 2.5 mg INHALATION Q2H PRN PRN #0 ml 04/08/21 [Rx Last Taken Unknown] [id number] [Larry (with collagen)] 1 packet PO BIDCM #0 ea 04/08/21 [Rx Last Taken Unknown] benzocaine-menthol [Cepacol Sore Throat (estefania-men)] 1 nelly MUCOUS MEMBRANE Q2H PRN PRN #0 ea 04/08/21 [Rx Last Taken Unknown] furosemide 40 mg PO BIDLX #0 tab 04/08/21 [Rx Last Taken Unknown] menthol-zinc oxide [Calmoseptine] 1 applic TOPICAL 4X/DAY #0 g 04/08/21 [Rx Last Taken Unknown] potassium chloride [Klor-Con M20] 40 meq PO BID #0 tab 04/08/21 [Rx Last Taken 04/04/21 09:00] Allergy/AdvReac Type Severity Reaction Status Date / Time shellfish derived Allergy Anaphylaxis Verified 05/07/21 10:06 Family History Mother Hypertension Heart disease Diabetes Cancer CAD (coronary artery disease) Uterine cancer Father Hypertension Heart disease Diabetes Cancer CAD (coronary artery disease) Surgical History Hx of coronary angioplasty S/P AKA (above knee amputation) unilateral S/P CABG x 3 S/P foot surgery, right Social History housing: shelter Smoking Status: Former smoker how long ago did patient quit smoking: Quit 3-4 years prior, smoked 1 ppd since teen until quit. alcohol intake: never substance use type: does not use ROS ROS ED ROS Narrative Constitutional: No fever, no chills. Generalized weakness, malaise and fatigue. HEENT: No sore throat. No neck pain. No loss of vision. No rhinorrhea. Cardiovascular: No chest pain. No palpitations. No pedal edema. Respiratory: No cough, no shortness of breath. Abdominal: No abdominal pain. No nausea. No vomiting. Genitourinary: No dysuria. No hematuria. Musculoskeletal: No myalgias. No arthralgias. Neurologic: No headaches. No dizziness. No lightheadedness. Skin: No rash. No change in color. Psychiatric: No depression. No anxiety. EXAM Physical Exam Narrative Exam Narrative: Afebrile. Vital signs noted. HEENT: Normocephalic. Atraumatic. PERRL, EOMI. Neck soft and supple. No point tenderness or step off. Cardiovascular: Regular rate and rhythm. No murmurs, rubs, or gallops appreciated. Respiratory: No tachypnea. Lungs clear to auscultation bilaterally. Gastrointestinal: Abdomen soft, nontender, with normoactive bowel sounds. No rebound or guarding. Neurological: Awake. Alert. Nonfocal, nonlateralizing. Skin: No rash. Normal color. Positive pallor. Musculoskeletal: No pedal edema. Full range of motion extremities. Noted left [id number] amputation secondary to peripheral vascular disease. Const Vital Signs: 05/07/21 10:06 05/07/21 10:09 Temperature 98 F Temperature Source Temporal Pulse Rate 73 Respiratory Rate 10 L Blood Pressure 107/53 L Blood Pressure Mean 71 Pulse Ox 86 93 Oxygen Delivery Method Room Air Nasal Cannula Oxygen Flow Rate (L/min) 2 MDM MDM MDM Narrative Medical decision making narrative: Patient was typed and screened. I attempted to contact her primary care provider, Dr. Ross Goldsmith, but was able to speak with his nurse practitioner, KANDY Altman. Type and screen and blood order was entered. We were discussing that as the patient is a DNR comfort care only if she could wait for outpatient infusion but start the blood work here versus at the outpatient infusion center. In discussion with the team, it was Dr. Goldsmith's intent to have the patient sent to the outpatient infusion center. I discussed the patient with case management. They are expecting her at 830 tomorrow morning but would at least like the type and screen drawn so as to prepare the blood for tomorrow. Straight stick will be performed on the patient. It was felt by Dr. Goldsmith's team and case management that she could be returned back to [facility] and get her outpatient infusion of blood products tomorrow. Disposition is discharged in stable condition. Discharge Plan Triage Chief Complaint: Abn Labs ED Provider: Dipesh Cronin Dx/Rx/DC Orders Clinical Impression: DNR (do not resuscitate), Anemia requiring transfusions Instructions: ED Anemia, Type Not Specified (Adult) Prescriptions: No Action metoprolol succinate 25 mg tablet extended release 24 hr 25 mg PO DAILY RF: 0 atorvastatin 40 MG tablet 40 mg PO DAILY RF: 0 clopidogrel 75 MG tablet 75 mg PO DAILY RF: 0 aspirin 81 MG tablet,chewable 81 mg PO DAILY RF: 0 gabapentin 600 mg tablet 600 mg PO TID RF: 0 hydralazine 25 mg Tablet 25 mg PO TID RF: 0 melatonin 3 mg Tablet 3 mg PO QHS RF: 0 famotidine 20 mg Tablet 20 mg PO BID RF: 0 ascorbic acid (vitamin C) 500 mg Tablet 500 mg PO DAILY RF: 0 ferrous sulfate 325 mg (65 mg iron) Tablet 325 mg PO DAILY RF: 0 fluoxetine 20 mg Tablet 20 mg PO DAILY RF: 0 Humulin R Regular U-100 Insuln 100 unit/mL Solution 5 unit SUBCUT TIDCM RF: 0 hydroxyzine HCl 25 mg Tablet 25 mg PO QHS RF: 0 multivitamin with minerals Tablet 1 tab PO DAILY RF: 0 loratadine 10 mg Tablet 10 mg PO DAILY RF: 0 Lantus Solostar U-100 Insulin 100 unit/mL (3 mL) insulin pen 13 unit SC DAILY RF: 0 buspirone 7.5 mg TID RF: 0 furosemide 40 mg Tablet 40 mg PO BIDLX Qty: 0 RF: 0 acetaminophen [Tylenol] 325 mg Tablet 650 mg PO Q4H PRN PRN (Reason: Fever, pain 1-10/10) Qty: 0 RF: 0 albuterol sulfate 2.5 mg /3 mL (0.083 %) Solution For Nebulization 2.5 mg inhalation Q2H PRN PRN (Reason: Dyspnea, wheezing) Qty: 0 RF: 0 menthol-zinc oxide [Calmoseptine] 0.44-20.6 % Ointment 1 applic topical 4X/DAY Qty: 0 RF: 0 Cepacol Sore Throat (estefania-men) 15-3.6 mg Lozenge 1 nelly mucous membrane Q2H PRN PRN (Reason: SORE THROAT) Qty: 0 RF: 0 Larry (with collagen) 7-7-1.5 gram Powder In Packet 1 packet PO BIDCM Qty: 0 RF: 0 potassium chloride [Klor-Con M20] 20 mEq Tablet,Er Particles/Crystals 40 meq PO BID Qty: 0 RF: 0 Primary Care Provider: Ross Goldsmith Referrals: Ross Goldsmith MD [Primary Care Provider] - Activity Restrictions/Additional Instructions: Report to the [facility] outpatient infusion center tomorrow morning at 830 for your blood transfusion. Disposition Disposition: Care Home Facility Discharge Location: [facility]
--- NOTE | 2021-05-07 11:10 | CASEMGMT ---
BASIL STOREY note: BASIL STOREY made aware patient sent to ER for transfusion that was previously scheduled for outpatient infusion tomorrow. BASIL STOREY placed call to [facility] Outpatient Infusion and spoke with Mary. Per Mary, patient was supposed to present to hospital today for type and screen only. Mary states patient is scheduled for outpatient blood transfusion tomorrow morning at 0830. Mary states infusion center does not yet have copy of order and requests that order for transfusion be faxed to ext [phone]. BASIL STOREY informed BASIL Boyle charge nurse and Dr. Cronin of this discussion. Plan for type and screen to be drawn in ER then patient to return to SNF with plan to return tomorrow for ordered/scheduled outpatient transfusion. Order for transfusion that patient presented to ER with faxed to ext [phone] at this time with confirmation receipt. BASIL Granados CM
--- NOTE | 2021-05-07 11:42 | NURSING ---
CALLED [facility], ETA IS 30 MIN
== END 2021-05-07 12:15 | disposition skilled nursing facility (03) ==
PROVIDERS: Emergency Provider Emergency Medicine; PCP Family Medicine; Visit Provider Emergency Medicine
DX: D64.9 Anemia, unspecified (principal); I25.2 Old myocardial infarction; Z87.891 Personal history of nicotine dependence; Z66 Do not resuscitate
CPT/HCPCS: 36415; 86850; 86900; 86901; 86920; 86922; 99284

== ENCOUNTER 2021-05-08 08:11 | Outpatient (CLI) | payer MEDICARE, MEDICAID, SELFPAY ==
[2021-05-08] VITALS (7 sets, daily range): BP systolic 115–146; BP diastolic 56–72; PULSE 66–70; RESP 16; TEMP 36.4–36.9; O2SAT 94–100; BMI 30.6
[2021-05-08] MEDS: 0.9% NaCl Peripheral Flush Adult/Peds IV (08:45)
[2021-05-08] MEDS: Furosemide 20 MG/2 ML VIAL IV (11:14)
== END 2021-05-08 23:59 | disposition home or self-care (01) ==
LOC: MEDOUTP 08:14
PROVIDERS: PCP Family Medicine; Referring Provider Family Medicine; Visit Provider Family Medicine
DX: D64.9 Anemia, unspecified (principal)
CPT/HCPCS: 36430; 86850; 86900; 86901; 86920; 86922; J7040; P9016; A4216; J1940